=== PATIENT | female | born 1940 | race Caucasian/White ===

== ENCOUNTER → 2016-10-19 | Outpatient (CLI) | payer BC ==
[~2016-10-19] MED LIST: ASCA500 PO; ATV2 SL; CLBCR15; CLTP PO; FSMUNK; HYD10 PO; LEVO-366 PO; MULT-506 PO; SYN112 PO; TRAZ100T29 PO; [UNRECOGNIZED DRUG - OTHER]
[2016-10-19 10:39] LABS: HEMATOCRIT 45.3 % (37-47); MEAN CELL VOLUME 100.7 fL (80-100); MEAN CORPUSCULAR HEMOGLOBIN 32.7 pg (25-34); MEAN CORPUSCULAR HGB CONC 32.5 g/dl (32-36); MEAN PLATELET VOLUME 10.6 fL (7.4-10.4); PLATELET COUNT 253 K/uL (130-400); WHITE BLOOD COUNT 9.01 K/uL (4.8-10.8)
[2016-10-19 10:54] LABS: CALCIUM 8.7 mg/dl (8.5-10.1)
[2016-10-19 10:55] LABS: ALT/SGPT 21 U/L (12-78); BLOOD UREA NITROGEN 27 mg/dl (7-18); BUN/CREATININE RATIO 36.2 (10-20); CARBON DIOXIDE 31 mmol/L (21-32); CHLORIDE 107 mmol/L (98-107); CHOLESTEROL 147 mg/dl (0-200); CREATININE 0.74 mg/dl (0.60-1.20); GLUCOSE 97 mg/dl (70-99); POTASSIUM 3.6 mmol/L (3.5-5.1); SODIUM 144 mmol/L (136-145); TRIGLYCERIDES 158 mg/dl (0-150); VERY LOW DENSITY LIPOPROT CALC 32 mg/dl
[2016-10-19 11:03] LABS: ALB/GLOB RATIO 0.9 (0.9-2); ALKALINE PHOSPHATASE 44 U/L (45-117); AST/SGOT 18 U/L (15-37); HDL CHOLESTEROL 49 mg/dl; LDL CHOLESTEROL CALCULATED 66 mg/dl; THYROID STIMULATING HORMONE 0.948 uIu/ml (0.300-4.500)
== END | disposition home or self-care (01) ==
LOC: C.LAB1850 09:05
PROVIDERS: ATTEND Internal Medicine
DX: G62.9 Polyneuropathy, unspecified (principal); E03.9 Hypothyroidism, unspecified; E27.1 Primary adrenocortical insufficiency

== ENCOUNTER → 2016-10-29 | Outpatient (CLI) | payer BC ==
--- NOTE | 2016-11-01 13:12 | MAMMOGRAPHY REPORT ---
BILATERAL DIGITAL SCREENING MAMMOGRAM WITH CAD: 10/29/2016 CLINICAL HISTORY: Routine screening. TECHNIQUE: Current study was also evaluated with a Computer Aided Detection (CAD) system. Bilateral CC and MLO views were obtained. Note that the images are somewhat suboptimal due to difficulties wi th patient positioning as she is in a wheelchair and had to be held for all views. COMPARISON: Comparison is made to exams dated: 07/11/2015 mammogram, 06/28/2014 mammogram, 03/22/2012 m ammogram, 04/02/2010 mammogram - [facility], 03/04/2009, and 02/15/2008. BREAST COMPOSITION: The tissue of both breasts is heterogeneously dense, which may obscure small mas ses. FINDINGS: No suspicious masses, calcifications, or areas of architectural distortion are noted in ei ther breast. There has been no significant interval change compared to prior exams. Bilateral asymme tries are stable. IMPRESSION: ACR BI-RADS CATEGORY 2: BENIGN There is no mammographic evidence of malignancy. A 1 year screening mammogram is recommended. The pa tient will receive written notification of the results. Approximately 10% of breast cancers are not detected with mammography. A negative mammographic report should not delay biopsy if a clinically suggestive mass is present. Ramona Haley M.D. ah/:10/29/2016 16:05:06 Attending Technologist: Sia Kraft RT(R)(M), [facility] Profile Shaper Operator: Dorian Bautista RT(R)(M), [facility] letter sent: Normal 1/2 BI-RADS Code: ACR BI-RADS Category 2: Benign
== END | disposition home or self-care (01) ==
LOC: C.MAMM 14:52
PROVIDERS: ATTEND Internal Medicine
DX: Z12.31 Encounter for screening mammogram for malignant neoplasm of breast (principal)

== ENCOUNTER → 2017-04-21 | Outpatient (CLI) | payer BC ==
[2017-04-21 10:04] LABS: URINE APPEARANCE CLEAR (CLEAR); URINE BILIRUBIN NEG (NEG); URINE COLOR YELLOW; URINE NITRITE NEG (NEG); URINE SPECIFIC GRAVITY 1.011 (1.000-1.030); UROBILINOGEN NEG (NEG)
[2017-04-21 10:07] LABS: HEMATOCRIT 44.2 % (37-47); MANUAL MICROSCOPIC REQUIRED? NO; MEAN CELL VOLUME 98.4 fL (80-100); MEAN CORPUSCULAR HEMOGLOBIN 31.6 pg (25-34); MEAN CORPUSCULAR HGB CONC 32.1 g/dl (32-36); MEAN PLATELET VOLUME 10.2 fL (7.4-10.4); PLATELET COUNT 230 K/uL (130-400); RED BLOOD COUNT 4.49 M/uL (4.2-5.4); REVIEW REQ? NO; WHITE BLOOD COUNT 9.01 K/uL (4.8-10.8)
[2017-04-21 10:42] LABS: ALT/SGPT 22 U/L (12-78); AST/SGOT 22 U/L (15-37); BLOOD UREA NITROGEN 22 mg/dl (7-18); BUN/CREATININE RATIO 31.7 (10-20); CALCIUM 8.5 mg/dl (8.5-10.1); CARBON DIOXIDE 31 mmol/L (21-32); CHLORIDE 104 mmol/L (98-107); GLUCOSE 65 mg/dl (70-99); POTASSIUM 3.4 mmol/L (3.5-5.1); SODIUM 137 mmol/L (136-145)
[2017-04-21 10:53] LABS: ALKALINE PHOSPHATASE 47 U/L (45-117)
--- NOTE | 2017-04-26 06:57 | CODING QUERY MEDICAL NECESSITY ---
SUPPORTING DIAGNOSIS NEEDED Dr. Keyes, A supporting diagnosis is required for the test/procedure performed on this patient in order for us to be reimbursed by the patient's insurance. Please provide a supporting diagnosis for the following test/procedure listed below next to the test name along with your signature. *If there is no additional diagnosis for this patient that would support the following test/procedure please document that below next to the test/procedure. Test(s)/Procedure(s) that require a supporting diagnosis: * ([id number]) B12 VITAMIN LEVEL DIAGNOSIS: DATE OF SERVICE: 04/21/17 Provider Signature: Date: Thank you Ambrosio Young [facility] Information Management Once completed, please kindly fax back to [phone] For questions please call [phone]
== END | disposition home or self-care (01) ==
LOC: C.LAB1850 09:14
PROVIDERS: ATTEND Internal Medicine
DX: E27.1 Primary adrenocortical insufficiency (principal); G62.9 Polyneuropathy, unspecified; E03.9 Hypothyroidism, unspecified; R39.9 Unspecified symptoms and signs involving the genitourinary system

== ENCOUNTER → 2017-06-22 | Outpatient (CLI) | payer BC ==
--- NOTE | 2017-06-22 15:24 | MAMMOGRAPHY REPORT ---
UNILATERAL LEFT DIGITAL DIAGNOSTIC MAMMOGRAM TOMOSYNTHESIS WITH CAD AND TARGETED LEFT ULTRASOUND: 05/25 CLINICAL HISTORY: The patient reports a palpable left breast lump with some associated tenderness for approximately 2 weeks. She reports a family history of breast cancer in her sister. She is also on hormone replacement therapy. TECHNIQUE: Breast tomosynthesis in addition to standard 2D mammography was performed. Current study was also evaluated with a Computer Aided Detection (CAD) system. Left CC and MLO 2-D and tomosynthes is images were obtained. COMPARISON: Comparison is made to exams dated: 10/29/2016 mammogram, 07/11/2015 mammogram, 06/28/2014 zander mogram, 03/22/2012 mammogram, 04/22/2010 ultrasound, and 04/22/2010 mammogram - [facility] enter. BREAST COMPOSITION: The tissue of the left breast is heterogeneously dense, which may obscure small masses. FINDINGS: A triangle marker loya the site of the palpable lump in the left inferior anterior breast. There has been no significant interval change in the left breast compared to prior exams. There ar e no suspicious masses, calcifications, or areas of architectural distortion noted in the left breast . There is a nodular 8 mm asymmetry seen within the left inferior and slightly medial anterior breas t, which is stable on 2-D views compared to multiple prior exams including the 2008 exam. Other left breast asymmetries are stable. Targeted ultrasound was performed of the area of the palpable lump pointed out by the patient. She c ould not pinpoint one discrete focal lump but described denser areas in the left 5 to 6:00 breast. I n the left breast at 6:00 periareolar region (with the patient turned in a left lateral oblique posit ion), there is a hypoechoic circumscribed 4 x 5 x 4 mm mass. This likely corresponds with the mammog raphic asymmetry which is been stable dating back to at least 2008 and is therefore probably benign. The remainder of the left 5 to 6:00 breast demonstrates no suspicious masses or other suspicious son ographic abnormalities. IMPRESSION: ACR-BI-RADS CATEGORY 3: PROBABLY BENIGN, TARGETED ULTRASOUND ACR-BI-RADS CATEGORY 3: PRO BABLY BENIGN Hypoechoic 5 mm mass in the left 6:00 periareolar breast, in the general region of the palpable lump/ denser areas described by the patient. The mass likely corresponds with a mammographic asymmetry whi ch has been stable dating back to 2008, and is therefore probably benign. Recommend bilateral diagno stic tomosynthesis mammograms in 5-6 months, to reevaluate the left breast asymmetry/mass and for rou angel mammography of the right breast (mammograms of the right breast are due in October so the follow-up could be performed in 5-6 months, 30 minute time slot). Also recommend clinical follow-up; if the p alpable abnormality increases or for any other concerns, the patient should return sooner for imaging . The patient has been verbally notified of the results. Approximately 10% of breast cancers are not detected with mammography. A negative mammographic report should not delay biopsy if a clinically suggestive mass is present. Ramona Haley M.D. ah/:06/22/2017 10:09:11 Attending Technologist: Dorian Bautista RT(R)(M), [facility] Infantryman: Mirta Taylor RT(R)(M), [facility] letter sent: Follow Up Recommended 3 BI-RADS Code: ACR-BI-RADS Category 3: Probably Benign Ultrasound BI-RADS: ACR-BI-RADS Category 3: Pr obably Benign
== END | disposition home or self-care (01) ==
LOC: C.MAMM 08:52
PROVIDERS: ATTEND Obstetrics & Gynecology
DX: N63.20 Unspecified lump in the left breast, unspecified quadrant (principal)

== ENCOUNTER 2023-05-09 09:39 | Inpatient (IN) ==
[2023-05-09] MEDS ORDERED: fentaNYL citrate PF 100 MCG/2 ML VIAL IV STA (09:48)
--- NOTE | 2023-05-09 09:50 | Emergency Department Note ---
Impression & Plan Atrial fibrillation with rapid ventricular response, Acute UTI (urinary tract infection), Generalized weakness, Total body pain, Edema of both lower legs ED Provider Note Name: DEANNA MCCORMICK Age: 83 Sex: Female Arrives Via: Ambulance Informant: Patient, EMS, nursing staff ED Provider: Brady Kendall MD Chief Complaint: Weakness Impression: As per impressions above Medical Decision Makin-year-old female arrives for several days worsening weakness and total body pain. She is somewhat dehydrated by examination but does have significant pitting edema bilateral lower legs. She is in A-fib RVR which is new for her. She is not having any significant shortness of breath or chest pain and her oxygenation is decent so we will hold off on CT imaging of the chest at this point. She does have significant swelling in the legs but I suspect she is more dehydrated and this may more be dependent edema plus the new onset A-fib. Mild congestion on chest but not overt failure by chest x-ray. She was given a small bolus IV fluids with her sodium being mildly low. Straight cath UA obtained which does show findings consistent with UTI. Will hold off anticoagulation until further evaluation by hospitalist. She is not overtly septic and with no hypotension or lactic acidosis we will hold off on 30/kg fluid especially given she has possible overload issues as it is. Triage/Nursing Notes reviewed by Me Differential:Infection, dehydration, metabolic abnormality, hypo/hyperglycemia, electrolyte disturbance, anemia, hypoxia, cardiac sources, intracerebral event, toxicologic, neurologic, as well as other pathologies. Vital Signs: reviewed and remarkable for tachy Interventions: nss bolu 500ml IV, rocephin 2 gm iv, fentanyl 25mcg IV Labs:ED labs Reviewed by me and remarkable for mildly elevated CRP with mildly low sodium normal white count. Imagin view chest x-ray as per my interpretation there is bilateral mild congestive findings no overt infiltrate or effusion appreciated. EKG:As per my interpretation. Indication weakness. A-fib with RVR at 119 bpm QTc of 441. There is no overt ischemia. When compared to EKG of September 06, 2008 A-fib is new Cardiac/Tele Monitoring: Cardiac Monitoring: An Order was placed for continuous cardiac monitoring. The monitor shows a rate of 110 with a afib rvr rhythm. Consults:Dr Joellen PAN Hospitalist Plan: Disposition:Hospitalization. Condition: Fair History of Present Illness: 83-year-old female arrives for evaluation of illness. Patient states for the last several days she has been having worsening body aches and pain. She notes diffuse leg, foot, hand pain. States it is stabbing and electric in nature. Worse with any movement. Associated with increasing swelling of her legs as well as redness of both legs though worse on the left side. Patient does note that she is feeling increasingly shortness of breath over the last few days. It is associated with several episodes of vomiting. She has not been able to eat for several days she reports. She denies though any abdominal pain or back pain. States she is not currently nauseous. Has not had any change to urine or bowel symptoms. Patient states she is wheelchair-bound for the last 20 years. She is unsure of why she needs to use a wheel chair other than her legs are too weak. Per EMS patient house is concerning for inability to care for self. Patient reports using Tylenol this morning Past Medical History:See Below Home Medications:See Below Allergies:nkda Vitals:Blood Pressure: 119/74, Pulse 130, RR 22, T 36.7C, O2 96% on RA Physical Exam: GENERAL: Patient is unwell appearing and in moderate distress. RESPIRATORY: No dyspnea. Clear to auscultation and equal bilaterally. CARDIOVASCULAR: Tachycardic, questionably regular.No murmur appreciated. GASTROINTESTINAL: Abdomen soft, non-tender, no peritonitis. EXTREMITIES: 4+ pitting edema bilateral lower legs with erythema bilateral lower legs streaking up into the left medial thigh. Some mild erythema of the lower abdomen as well. NEUROLOGIC: Alert and oriented. No focal neurologic deficits appreciated. Hard of hearing SKIN: No rash, no jaundice, no diaphoresis. PSYCH: Tremulous shaky and crying. GCS: 15 ED Course: Times/Reassessments: Heart rate is improved after IV fluids and patient does note that she is feeling bit better after pain medications. She is agreeable to hospitalization. Brady Kendall MD Past Med/Surg History Medical History [place] disease Bronchitis History of edema History of vaginitis Surgical History H/O oophorectomy History of ovarian cystectomy S/P thyroid surgery Family History Sister Breast cancer Hearing loss Allergies Mother Thyroid cancer Brother Hearing loss Other No family history of adverse response to anesthesia No family history of bleeding disorder Denies family history of Colon cancer Ovarian cancer Myocardial infarction Social History Smoking Status: Smoker, status unknown Second Hand Exposure: No; Do You Dip or Chew Tobacco: No; Hx Alcohol Use: No Hx Substance Use: No Preferred Language: Moldovan marital status: Current Living Situation: Spouse current occupational status: retired Feels Safe at Home: Yes Physical Activity Frequency: Does not Exercise Seatbelt Use: always Allergies Allergies Allergy/AdvReac Type Severity Reaction Status Date / Time No Known Drug Allergies Allergy Verified 05/09/23 13:50 Home Meds Home Medications Medication Instructions Recorded Confirmed multivitamin 1 tab PO DAILY 11/01/18 05/09/23 polyethylene glycol 3350 17 8.5 gm PO DAILY PRN Constipation 11/01/18 05/09/23 gram/dose oral powder (Miralax) vit C 50 mg-E 15 unit-zinc cit 4.5 2 tab PO DAILY 11/01/18 05/09/23 mg-lutein 2.5 mg-zeaxan chew tablet (I-Stand) Previous Rx's Medication Instructions Recorded trazodone 100 mg tablet 150 mg (1.5 x 100 mg) PO DAILY 06/24/22 #135 tabs simvastatin 5 mg tablet 5 mg PO DAILY #90 tabs 08/24/22 hydrocortisone 10 mg tablet 10 mg PO Q6H PRN asthma #360 tabs 12/07/22 levothyroxine 112 mcg tablet 112 mcg PO DAILY #90 tabs 12/23/22 omeprazole 20 mg capsule,delayed 20 mg PO DAILY #90 caps 03/25/23 release Results & Data (ED) Vital Signs Vital Signs - 24 hr 05/09/23 09:49 05/09/23 10:06 05/09/23 10:06 Pulse Rate 128 H 108 H 103 H Pulse Rhythm Regular Respiratory Rate 20 20 Respiratory Depth Normal Blood Pressure 119/75 Blood Pressure Mean 89 Pulse Oximetry 96 96 Oxygen Delivery Method Room Air Room Air Sepsis Recent Fever Within 48 Hours No Sepsis New/Unexplained Change in Mental Status No Sepsis Action Taken by Nursing No Action Required 05/09/23 10:40 05/09/23 11:30 Pulse Rate 98 H 106 H Pulse Rhythm Respiratory Rate 13 18 Respiratory Depth Blood Pressure 119/75 119/75 Blood Pressure Mean 89 89 Pulse Oximetry 93 93 Oxygen Delivery Method Room Air Room Air Sepsis Recent Fever Within 48 Hours Sepsis New/Unexplained Change in Mental Status Sepsis Action Taken by Nursing Laboratory Data 05/09/23 09:56 05/09/23 09:56 Lab Results 05/09/23 05/09/23 05/09/23 Range/Units 09:56 10:14 10:27 WBC 5.32 (4.8-10.8) K/ul RBC 4.17 L (4.20-5.40) M/uL Hgb 13.8 (12.0-16.0) g/dl Hct 40.6 (37.0-47.0) % MCV 97.4 (80.0-100.0) fL MCH 33.1 (25.0-34.0) pg MCHC 34.0 (32.0-36.0) g/dL RDW Std Deviation 48.0 H (36.4-46.3) fL RDW Coeff of Alvarez 13.4 (11.5-14.5) % Plt Count 241 (130-400) K/uL MPV 10.0 (9.4-12.4) fL Immature Gran % (Auto) 0.2 % Neut % (Auto) 62.4 % Lymph % (Auto) 16.5 % [place] % (Auto) 11.7 % Eos % (Auto) 8.6 % Baso % (Auto) 0.6 % Neut # (Auto) 3.32 (1.40-6.50) K/uL Lymph # (Auto) 0.88 L (1.20-3.40) K/uL [place] # (Auto) 0.62 H (0.11-0.59) K/uL Eos # (Auto) 0.46 (0.00-0.50) K/uL Baso # (Auto) 0.03 (0.00-0.20) K/uL Immature Gran # (Auto) 0.01 (0.01-0.20) K/uL ESR 28 (0-30) mm/hr PT 12.4 H (9.0-12.0) Seconds INR 1.1 (0.9-1.1) APTT 27 (21-31) Seconds PTT Ratio 1.0 Sodium 128 L (136-145) mmol/L Potassium 4.2 (3.5-5.1) mmol/L Chloride 98 (98-107) mmol/L Carbon Dioxide 25 (21-32) mmol/L Anion Gap 5 (3-11) BUN 21 (6-23) mg/dl Creatinine 0.42 L (0.6-1.2) mg/dl Est Cr Clr Drug Dosing 88.1 ml/min Est GFR ( Amer) 110.6 ml/min Est GFR (Non-Af Amer) 95.5 ml/min BUN/Creatinine Ratio 50.0 H (10-20) Glucose 85 (70-99(Fasting)) mg/dl Lactate 1.1 (0.4-2.0) mmol/L Calcium 8.5 L (8.6-10.3) mg/dl Magnesium 1.7 (1.7-2.4) mg/dl Total Bilirubin 0.7 (0.2-1.0) mg/dl Direct Bilirubin 0.1 (0-0.2) mg/dl AST 18 (13-39) U/L ALT 10 (7-52) U/L Alkaline Phosphatase 53 (34-104) U/L Total Creatine Kinase 61 (26-192) U/L Troponin I High Sens 10.6 (0-14) pg/ml C-Reactive Protein 2.10 H (0-0.5) mg/dl B-Natriuretic Peptide 252 H (0-100) pg/ml Total Protein 5.5 L (6.0-8.3) gm/dl Albumin 3.2 L (3.4-5.0) gm/dl Procalcitonin < 0.05 (0-0.5) ng/ml TSH 9.407 H (0.300-4.500) uIu/ml Free T4 0.93 (0.61-1.60) ng/dl Random Cortisol 4.53 mcg/dl Urine Color Yellow Urine Appearance Cloudy A (Clear) Urine pH 7.0 (4.5-7.5) Ur Specific [place] 1.018 (1.000-1.030) Urine Protein Negative (Negative) Urine Glucose (UA) Negative (Negative) Urine Ketones Negative (Negative) Urine Blood Trace H (Negative) Urine Nitrite Negative (Negative) Urine Bilirubin Negative (Negative) Urine Urobilinogen Negative (Negative) Ur Leukocyte Esterase 3+ H (Negative) Urine WBC (Auto) >30 H (0-5) /hpf Urine RBC (Auto) 5-10 H (0-4) /hpf U Hyaline Cast (Auto) 0 (0-5) /lpf U Epithel Cells (Auto) 0-5 (0-5) /lpf Urine Bacteria (Auto) 3+ H (Negative) Urine Osmolality 513 (500-800) mOsm/kg Ur Random Sodium 27 mmol/L SARS-CoV-2 (PCR) NEGATIVE (Negative) Influenza Type A (PCR) Negative (Neg) Influenza Type B (PCR) Negative (Neg) RSV (RT-PCR) Negative (Neg) Administered Medications Heparin Sodium/Dextrose (Heparin Sodium/Dextrose) 25,000 units in 500 mls @ 13 mls/hr IV .Q24H [facility]; Protocol Stop: 06/08/23 13:14 Last Admin: 05/09/23 14:03 Dose: 650 units/hr, 13 mls/hr Documented By: DOMO Co-signed By: TELMA Metoprolol Tartrate (Metoprolol Tartrate 25 Mg Tab) 25 mg PO BID [facility] Stop: 06/08/23 12:59 Last Admin: 05/09/23 14:03 Dose: 25 mg Documented By: DOMO Sodium Chloride (Sodium Chloride 0.65% Na Soln 45 Ml ([place])) 2 sprays NA BID NATASHA Stop: 06/08/23 12:59 Last Admin: 05/09/23 14:03 Dose: 2 sprays Documented By: DOMO Discontinued Medications Fentanyl Citrate (Fentanyl Citrate Pf 100 Mcg/2 Ml Vial) 25 mcg IV NOW STA Stop: 05/09/23 09:49 Last Admin: 05/09/23 10:18 Dose: 25 mcg Documented By: TUCKER Heparin Sodium/Dextrose (Heparin Iv Adult Wt-Based Low-Dose *No* Initial Bolus Protocol) 1 each IV ONE STA; Protocol Stop: 05/09/23 12:47 Last Admin: 05/09/23 14:10 Dose: Not Given Documented By: DOMO Ceftriaxone Sodium (Rocephin) 2,000 mg in 50 mls @ 100 mls/hr IV NOW STA Stop: 05/09/23 11:23 Last Infusion: 05/09/23 11:51 Dose: Infused Documented By: Admin: 05/09/23 11:19 Dose: 100 mls/hr Documented By: TUCKER Sodium Chloride (Nss) 500 mls @ 999 mls/hr IV .Q31M ONE Stop: 05/09/23 11:26 Last Infusion: 05/09/23 11:51 Dose: Infused Documented By: Admin: 05/09/23 11:19 Dose: 999 mls/hr Documented By: TUCKER Magnesium Sulfate/Dextrose (Magnesium Sulfate / D5w) 1 gm in 100 mls @ 100 mls/hr IV NOW STA Stop: 05/09/23 12:42 Last Infusion: 05/09/23 14:03 Dose: Infused Documented By: Admin: 05/09/23 12:28 Dose: 100 mls/hr Documented By: TUCKER Imaging Data Radiologist's Impression: Chest X-Ray 05/09/23 09:48 XR chest 1V portable HISTORY: Sepsis COMPARISON: Chest 09/06/2008. FINDINGS: No pneumothorax. No pleural effusions. The heart remains mildly enlarged. Mild central pulmonary vascular congestion without overt edema. Left basilar linear densities favor subsegmental atelectasis or scarring. This is similar to the prior study. No acute fractures identified. IMPRESSION: Cardiomegaly and mild congestive change. ACT 112: Negative or not required by law. Electronically signed by: Lupillo Clarke M.D. 05/09/2023 11:07 AM Discharge Plan Visit Data Chief Complaint: Pain (Generalized) Stated Complaint: PAIN IN HANDS, ARMS & LEGS ED Provider: Brady Kendall Discharge Problem: Atrial fibrillation with rapid ventricular response, Acute UTI (urinary tract infection), Generalized weakness, Total body pain, Edema of both lower legs Patient Disposition: Admitted As Inpatient Discharge Instructions Interventions: ED Discharge Assessment Last Done: 05/09/23 12:38
[2023-05-09 10:15] LABS: Basophils # (auto) 0.03 K/uL (0.00-0.20); Basophils % (auto) 0.6 %; Eosinophils # (auto) 0.46 K/uL (0.00-0.50); Eosinophils % (auto) 8.6 %; Hematocrit (blood only) 40.6 % (37.0-47.0); Hemoglobin 13.8 g/dl (12.0-16.0); Immature Granulocytes # (auto) 0.01 K/uL (0.01-0.20); Immature Granulocytes % (auto) 0.2 %; Lymphocytes # (auto) 0.88 K/uL (1.20-3.40); Lymphocytes % (auto) 16.5 %; Mean Corpuscular Hemoglobin 33.1 pg (25.0-34.0); Mean Corpuscular Volume 97.4 fL (80.0-100.0); Monocytes # (auto) 0.62 K/uL (0.11-0.59); Monocytes % (auto) 11.7 %; Neutrophils # (auto) 3.32 K/uL (1.40-6.50); Neutrophils % (auto) 62.4 %; Platelet Count 241 K/uL (130-400); RDW Coefficient of Variation 13.4 % (11.5-14.5); Red Blood Count 4.17 M/uL (4.20-5.40); White Blood Count 5.32 K/ul (4.8-10.8)
[2023-05-09 10:44] LABS: Appearance Urine Cloudy (Clear); Bacteria Urine Automated 3+ (Negative); Bilirubin Urine Negative (Negative); Blood Urine Trace (Negative); Cast Urine Automated 0 /lpf (0-5); Color Urine Yellow; Epithelial Cell Urine Auto 0-5 /lpf (0-5); Glucose Urine UA Negative (Negative); Ketones Urine Negative (Negative); Leukocyte Esterase Urine 3+ (Negative); Nitrite Urine Negative (Negative); Protein Urine Negative (Negative); Specific Gravity Urine 1.018 (1.000-1.030); Urobilinogen Urine Negative (Negative); WBC Urine Automated >30 /hpf (0-5)
[2023-05-09 10:54] LABS: Albumin Level 3.2 gm/dl (3.4-5.0); Bilirubin Direct 0.1 mg/dl (0-0.2); Bilirubin,Total 0.7 mg/dl (0.2-1.0); Calcium 8.5 mg/dl (8.6-10.3); Creatinine Clr Calc Pharmacy 88.1 ml/min; Est GFR (African American) 110.6 ml/min; Est GFR (Non-African American) 95.5 ml/min; Magnesium 1.7 mg/dl (1.7-2.4); Potassium 4.2 mmol/L (3.5-5.1); Total Protein 5.5 gm/dl (6.0-8.3)
[2023-05-09] MEDS ORDERED: cefTRIAXone SODIUM 2,000 MG/50 ML BAG IV STA (10:54)
[2023-05-09] MEDS ORDERED: SODIUM CHLORIDE 0.9% 500 ML IV ONE (10:56)
--- NOTE | 2023-05-09 11:08 | XRay Report ---
XR chest 1V portable HISTORY: Sepsis COMPARISON: Chest 09/06/2008. FINDINGS: No pneumothorax. No pleural effusions. The heart remains mildly enlarged. Mild central pulm onary vascular congestion without overt edema. Left basilar linear densities favor subsegmental atele ctasis or scarring. This is similar to the prior study. No acute fractures identified. IMPRESSION: Cardiomegaly and mild congestive change. ACT 112: Negative or not required by law. Electronically signed by: Lupillo Clarke M.D. 05/09/2023 11:07 AM
[2023-05-09 11:19] LABS: Influenza A virus by PCR Negative (Neg); Influenza B virus by PCR Negative (Neg); RSV by PCR Negative (Neg); SARS CoV2 RNA(COVID-19) Ceph NEGATIVE (Negative)
--- NOTE | 2023-05-09 11:29 | History & Physical Report ---
Date of Service May 09, 2023 Assessment & Plan (1) Bilateral leg pain: Plan: Appears to be related to leg swelling. No specific joint pain and she is wheelchair bound without trauma therefore no XRs taken. ?worsening swelling due to a. fib RVR ?DVT, b/l venous dopplers ordered ?venous stasis and poor nutrition Will trial lasix 20mg IV to assess urine output (2) Atrial fibrillation with RVR: Plan: New onset although suspect she has had this for sometime as palpitations noted in outpatient notes (previously used lorazepam for this) [id number] - 4, recommend anticoagulation, will initially give heparin IV drip low dose without bolus Start rate control with metoprolol tartrate 25mg PO BID (3) Urinary tract infection: Plan: New urinary incontinence and increased frequency Ceftriaxone 2g IV daily Follow up blood and urine cultures (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 Does not appear to need stress dose steroids currently but will keep on this high dose of hydrocortisone to avoid hypotension with acute illness. Consider reduction on discharge with discussion with endocrinology - patient unlikely to follow up with endocrinology on discharge (5) Polyneuropathy: Plan: Per PCP notes - no real workup for this. Would recommend outpatient EMG/NCS although doubtful she will be amenable to this. (6) Chronic prescription benzodiazepine use: Plan: PDMP reviewed at that she has been weaned off lorazepam over January and February this year she picks up her last dose of 4 pills lorazepam 0.5 mg on March 10, 2023 She confirms she is no longer taking lorazepam (7) Hypothyroidism: Plan: TSH 3.38 in December 2021, will repeat Continue levothyroxine 112 mcg p.o. daily (8) GERD without esophagitis: Plan: Switch omeprazole to pantoprazole per hospital formulary (9) Anxiety: Plan: Continue trazodone 150 mg HS Plan VTE prophylaxis - IV heparin Diet - Low Na Disposition - admit to med/tele Admission and Anticipated Discharge Date Admission Date: May 09, 2023 History of Present Illness Chief Complaint: Bilateral leg pain, failure to thrive Primary Care Provider: Alejandro Keyes MD Esteban Grace is a 83-year-old female who presents to the ER with generalized pain and fatigue but mainly bilateral pain in legs for the last 4 days. She is wheelchair-bound for the last 20 years although for unclear reasons why and per primary care notes has refused specialist workup for this. She reports most of her symptoms are chronic but worse in the last 4 days including bilateral leg pain, decreased sleep and increased fatigue. Reports the last week or two having pain in her chest but none currently. She does not exert herself. No worse on inspiration. Urinary incontinence for "some time" - possible worse the last month or two and more frequent over the last 4 days. Possibly more short of breath over the last 4 days. No fever, chills, change in bowels, abdominal pain, orthopnea, PND, palpitations, presyncope or syncope. Review of PCP notes - patient has not followed up in person in multiple years. Notably weaned off lorazepam in February without the patient coming to the doctor. On discussion with her they have spent the last 60 years together every day and this is the first day they have been apart. He is unable to visit as he has his own medical problems and has not left the house in a year. He is mainly concerned about her getting pain medication for her leg pain. Allergies Allergy/AdvReac Type Severity Reaction Status Date / Time No Known Drug Allergies Allergy Verified 05/09/23 13:50 Home Medications Medication Instructions Recorded Confirmed Type multivitamin 1 tab PO DAILY 11/01/18 05/09/23 History polyethylene glycol 3350 17 8.5 gm PO DAILY PRN Constipation 11/01/18 05/09/23 History gram/dose oral powder (Miralax) vit C 50 mg-E 15 unit-zinc cit 4.5 2 tab PO DAILY 11/01/18 05/09/23 History mg-lutein 2.5 mg-zeaxan chew tablet ([facility]) trazodone 100 mg tablet 150 mg (1.5 x 100 mg) PO DAILY 06/24/22 05/09/23 Rx #135 tabs simvastatin 5 mg tablet 5 mg PO DAILY #90 tabs 08/24/22 05/09/23 Rx hydrocortisone 10 mg tablet 10 mg PO Q6H PRN asthma #360 tabs 12/07/22 05/09/23 Rx levothyroxine 112 mcg tablet 112 mcg PO DAILY #90 tabs 12/23/22 05/09/23 Rx omeprazole 20 mg capsule,delayed 20 mg PO DAILY #90 caps 03/25/23 05/09/23 Rx release Past Med/Surg History Medical History Mclean disease Bronchitis History of edema History of vaginitis Surgical History H/O oophorectomy History of ovarian cystectomy S/P thyroid surgery Family History Sister Breast cancer Hearing loss Allergies Mother Thyroid cancer Brother Hearing loss Other No family history of adverse response to anesthesia No family history of bleeding disorder Denies family history of Colon cancer Ovarian cancer Myocardial infarction Social History Smoking Status: Never smoker Second Hand Exposure: No; Do You Dip or Chew Tobacco: No; Hx Alcohol Use: No Hx Substance Use: No Preferred Language: Yoruba Mountain Guide Required: No Beliefs That Will Affect Care: None marital status: Current Living Situation: Spouse current occupational status: retired Feels Safe at Home: Yes Safety Concerns: Feels Safe At This Time Physical Activity Frequency: Does not Exercise Seatbelt Use: always Assistive Devices: Wheelchair Review of Systems Review of Systems: All systems reviewed & are unremarkable except as noted in HPI & below Physical Exam Constitutional: well developed; + not well nourished and no acute distress Eyes: PERRL, conjunctivae normal, anicteric sclerae ENMT: external ear and nose normal, oropharynx normal Respiratory: normal respiratory effort; no respiratory distress Auscultation: + diminished lung sounds (bibasal); no crackles, no rales, no rhonchi and no wheezes Cardiovascular: Rate/Rhythm: + tachycardic and + irregularly irregular Heart Sounds: no murmur Gastrointestinal (Abdomen): normal bowel sounds, soft, nontender, no hepatosplenomegaly Skin: few scabs on b/l lower extremities with erythematous venous stasis changes but no definitive cellulitic changes Neurologic: moves all extremities (2/5 b/l lower extremity hip/knee flex, 4/5 ankle dorsi/plantarflex) and awake; no focal motor deficits (no lateralizing weakness) and not confused Speech / Cognition: normal speech Motor/Sensory: no tremor and no pronator drift Cranial Nerves: PERRL, EOM intact bilaterally, normal facial strength, tongue midline, able to elevate shoulders bilaterally, no nystagmus and symmetric palate elevation Psychiatric: A+Ox3, euthymic affect Genitourinary: no CVA tenderness Results & Data Results & Data Vital Signs (Past 12 Hours) Vital Signs Pulse Resp BP Pulse Ox O2 Del Method 05/09/23 10:40 98 H 13 119/75 93 Room Air 05/09/23 10:06 103 H 20 96 Room Air 05/09/23 10:06 108 H 20 119/75 96 Room Air 05/09/23 09:49 128 H Laboratory Results Abnormal lab results 05/09/23 05/09/23 Range/Units 09:56 10:27 RBC 4.17 L (4.20-5.40) M/uL RDW Std Deviation 48.0 H (36.4-46.3) fL Lymph # (Auto) 0.88 L (1.20-3.40) K/uL [place] # (Auto) 0.62 H (0.11-0.59) K/uL Sodium 128 L (136-145) mmol/L Creatinine 0.42 L (0.6-1.2) mg/dl BUN/Creatinine Ratio 50.0 H (10-20) Calcium 8.5 L (8.6-10.3) mg/dl B-Natriuretic Peptide 252 H (0-100) pg/ml Total Protein 5.5 L (6.0-8.3) gm/dl Albumin 3.2 L (3.4-5.0) gm/dl Urine Appearance Cloudy A (Clear) Urine Blood Trace H (Negative) Ur Leukocyte Esterase 3+ H (Negative) Urine WBC (Auto) >30 H (0-5) /hpf Urine RBC (Auto) 5-10 H (0-4) /hpf Urine Bacteria (Auto) 3+ H (Negative) Diagnostic Findings XR chest 1V portable HISTORY: Sepsis COMPARISON: Chest 09/06/2008. FINDINGS: No pneumothorax. No pleural effusions. The heart remains mildly enlarged. Mild central pulmonary vascular congestion without overt edema. Left basilar linear densities favor subsegmental atelectasis or scarring. This is si milar to the prior study. No acute fractures identified. IMPRESSION: Cardiomegaly and mild congestive change. Medications Administered ER medications given: Normal saline 500 mL bolus Fentanyl 25 mcg IV Ceftriaxone 2000 mg IV ECG Rate (beats per minute): 119 Rhythm: atrial fibrillation Findings: + nonspecific-ST abn; no acute ischemic change Comparison ECG Date: from (September 06, 2008) Change: the following changes noted (Nonspecific T wave abnormality evident in anterior leads) Code Status & VTE Plan Code Status Full VTE Prophylaxis Plan VTE Prophylaxis will be ordered: Yes PG Care Time/CCT Total # of Minutes Spent Total Time Spent with Patient: Total time spent is greater than 50% in coordination of care (as documented) at patient's floor/unit and/or counseling patient: Coding Level of Care Code 91029 INT INP/OBS CARE 3/75MIN Diagnoses Bilateral leg pain M79.604; M79.605 Atrial fibrillation with RVR I48.91 Acute cystitis with hematuria N30.01 Urinary tract infection type: acute cystitis Hematuria presence: with hematuria 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
[2023-05-09] MEDS ORDERED: MAGNESIUM SULFATE / D5W 1 GM/100 ML BAG IV STA (11:43)
[2023-05-09] MEDS ORDERED: Heparin IV Adult Wt-Based Low-Dose *NO* INITIAL Bolus Protocol IV STA (12:46)
[2023-05-09 13:06] LABS: INR 1.1 (0.9-1.1); Partial Thromboplastin Time 27 Seconds (21-31); Prothrombin Time 12.4 Seconds (9.0-12.0)
[2023-05-09 13:07] LABS: C Reactive Protein 2.1 mg/dl (0-0.5)
[2023-05-09] MEDS ORDERED: HEPARIN SODIUM/DEXTROSE 25,000 UNITS/500 ML BAG IV SCH (13:15)
[2023-05-09 13:21] LABS: Thyroid Stimulating Hormone 9.407 uIu/ml (0.300-4.500)
[2023-05-09 13:59] LABS: T4 Free Thyroxine 0.93 ng/dl (0.61-1.60)
[2023-05-09] MEDS: METOPROLOL TARTRATE 25 MG TAB PO SCH ×2 (14:03→20:59)
[2023-05-09] MEDS: SODIUM CHLORIDE 0.65% NA SOLN 45 ML (OCEAN) SCH ×2 (14:03→20:59)
[2023-05-09] MEDS ORDERED: HYDROCORTISONE 10 MG TAB PO STA (14:40)
[2023-05-09] MEDS: HYDROCORTISONE 10 MG TAB PO SCH ×2 (16:22→20:58)
[2023-05-09] MEDS ORDERED: ACETAMINOPHEN 325 MG TAB PO PRN (17:03)
[2023-05-09] MEDS ORDERED: FUROSEMIDE INJ 20 MG/2 ML VIAL IV ONE (17:03)
--- NOTE | 2023-05-09 19:37 | XCELERA ---
[id number]
[2023-05-09 20:46] LABS: BUN Creatinine Ratio 38.6 (10-20); Calcium 8.1 mg/dl (8.6-10.3); Creatinine Clr Calc Pharmacy 84.1 ml/min; Potassium 4.1 mmol/L (3.5-5.1)
[2023-05-09 20:54] LABS: ANTI-Xa, UFH(UnfractionatedHep < 0.10 IU/ml (0.3-0.7)
[2023-05-09] MEDS: traZODone HCL 50 MG TAB PO SCH (20:59)
[2023-05-09] MEDS ORDERED: HEPARIN SOD (PORCINE) 1000 UNIT/ML IV ONE (21:30)
--- NOTE | 2023-05-10 02:32 | Ultrasound Report ---
Exam(s): US VENOUS BILATERAL LOWER EXTREMITIES EXAM: US Duplex Bilateral Lower Extremities Veins CLINICAL HISTORY: Reason for exam: b/l leg swelling and pain. TECHNIQUE: Real-time duplex ultrasound scan of the bilateral lower extremity veins integrating B-mode two-dimensional vascular structure, Doppler spectral analysis, color flow Doppler imaging and compression. COMPARISON: None. FINDINGS: Right deep veins: Unremarkable. No DVT in the right common femoral, femoral, proximal deep femoral or popliteal veins. The veins demonstrate normal color flow, are normally compressible, with normal phasic flow and/or augmentation response. Suboptimally seen right peroneal veins. Right superficial veins: Unremarkable. No thrombus in the visualized right great saphenous vein. Left deep veins: Unremarkable. No DVT in the left common femoral, femoral, proximal deep femoral or popliteal veins. The veins demonstrate normal color flow, are normally compressible, with normal phasic flow and/or augmentation response. Suboptimally seen in the left peroneal veins. Left superficial veins: Unremarkable. No thrombus in the visualized left great saphenous vein. Soft tissues: No acute findings. No popliteal cyst. IMPRESSION: No ultrasonographic evidence of deep venous thrombosis involving the bilateral lower extremities. Electronically signed by: Didi Reyes MD 05/10/23 02:31 AM
[2023-05-10 03:52] LABS: Basophils # (auto) 0.04 K/uL (0.00-0.20); Basophils % (auto) 0.6 %; Eosinophils # (auto) 0.06 K/uL (0.00-0.50); Hematocrit (blood only) 39.9 % (37.0-47.0); Hemoglobin 13.5 g/dl (12.0-16.0); Immature Granulocytes # (auto) 0.02 K/uL (0.01-0.20); Immature Granulocytes % (auto) 0.3 %; Lymphocytes # (auto) 0.91 K/uL (1.20-3.40); Lymphocytes % (auto) 14.7 %; Mean Corpuscular Hemoglobin 32.7 pg (25.0-34.0); Mean Corpuscular Hgb Conc 33.8 g/dL (32.0-36.0); Mean Corpuscular Volume 96.6 fL (80.0-100.0); Mean Platelet Volume 10.1 fL (9.4-12.4); Monocytes # (auto) 0.57 K/uL (0.11-0.59); Monocytes % (auto) 9.2 %; Neutrophils % (auto) 74.2 %; Platelet Count 260 K/uL (130-400); RDW Coefficient of Variation 13.4 % (11.5-14.5); Red Blood Count 4.13 M/uL (4.20-5.40)
[2023-05-10 04:02] LABS: Albumin Globulin Ratio 1.3 (0.9-2); BUN Creatinine Ratio 30.8 (10-20); Bilirubin,Total 0.5 mg/dl (0.2-1.0); Calcium 8.1 mg/dl (8.6-10.3); Creatinine Clr Calc Pharmacy 71.1 ml/min; Est GFR (African American) 103.1 ml/min; Globulin 2.3 gm/dl (2.5-4.0); Magnesium 1.9 mg/dl (1.7-2.4); Potassium 4.1 mmol/L (3.5-5.1); Total Protein 5.3 gm/dl (6.0-8.3)
[2023-05-10 04:19] LABS: ANTI-Xa, UFH(UnfractionatedHep 0.45 IU/ml (0.3-0.7)
[2023-05-10] MEDS ORDERED: LEVOTHYROXINE SODIUM 112 MCG TABLET PO SCH (06:30)
[2023-05-10] MEDS: HYDROCORTISONE 10 MG TAB PO SCH ×4 (08:47→21:16)
[2023-05-10] MEDS: SODIUM CHLORIDE 0.65% NA SOLN 45 ML (OCEAN) SCH ×2 (08:48→21:15)
[2023-05-10] MEDS: PANTOprazole 40 MG TAB PO SCH (08:48)
[2023-05-10] MEDS: METOPROLOL TARTRATE 25 MG TAB PO SCH (08:48)
[2023-05-10] MEDS ORDERED: FUROSEMIDE INJ 20 MG/2 ML VIAL IV SCH (09:00)
[2023-05-10] MEDS: APIXABAN 5 MG TABLET PO SCH ×2 (10:51→21:16)
[2023-05-10] MEDS: cefTRIAXone SODIUM 1,000 MG in DEXTROSE 5 % MINI-B 50 ML IV SCH (10:51)
[2023-05-10] MEDS: FUROSEMIDE INJ 20 MG/2 ML VIAL IV SCH (17:50)
--- NOTE | 2023-05-10 19:19 | Hospitalist Progress Note ---
Date of Service May 10, 2023 Assessment & Plan (1) (HFpEF) heart failure with preserved ejection fraction: Plan: Presents with worsening peripheral edema and leg pain with rapid atrial fibrillation With elevated BNP, hyponatremia from volume overload, and chest x-ray with cardiomegaly and mild congestive change Echocardiogram with EF 55-60%, no WMA's, mild LVH, moderate TR, small pericardial effusion without tamponade, mild MR Likely acute on chronic HFpEF secondary to rapid A-fib ongoing for likely months -Increase metoprolol to 50 Mg p.o. twice daily for rate control -Blood pressure is already controlled -Continue diuresis but increase Lasix to 20 Mg IV twice daily and replace potassium as needed -Follow daily weights and I's and O's, low-sodium diet -Plan to repeat echo within 1 month to reassess pericardial effusion -TSH is elevated at 9.4-adjust LT4 as below (2) Bilateral leg pain: Plan: Appears to be related to leg swelling. No specific joint pain and she is wheelchair bound without trauma therefore no XRs taken. venous dopplers negative for DVT Could also have venous stasis and poor nutrition contributing Continue diuresis as above (3) Atrial fibrillation with RVR: Plan: New onset although suspect she has had this for sometime as palpitations noted in outpatient notes (previously used lorazepam for this) [id number] - 4, recommend anticoagulation, was initially started on heparin IV drip but will convert to Eliquis 5 Mg p.o. twice daily Needs improved rate control-started metoprolol tartrate 25mg PO BID but will now increase to 50 Mg p.o. 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 Does not appear to need stress dose steroids currently but will keep on this high dose of hydrocortisone to avoid hypotension with acute illness. Consider reduction on discharge with discussion with endocrinology - patient unlikely to follow up with endocrinology on discharge She has been taking this consistently for years (8) Polyneuropathy: Plan: Per PCP notes - no real workup for this. Would recommend outpatient EMG/NCS although doubtful she will be amenable to this. B12 level in 2020 is normal (9) Chronic prescription benzodiazepine use: Plan: PDMP reviewed at that she has been weaned off lorazepam over January and February this year she picks up her last dose of 4 pills lorazepam 0.5 mg on March 10, 2023 She confirms she is no longer taking lorazepam (10) Hypothyroidism: Plan: TSH 3.38 in December 2021, now elevated at 9 Increase levothyroxine to 125 mcg p.o. daily Follow TSH in 4 to 6 weeks (11) GERD without esophagitis: Plan: Continue PPI (12) Anxiety: Plan: Continue trazodone 150 mg HS Now weaned off lorazepam Plan VTE prophylaxis -Eliquis Diet - Low Na Disposition -continued stay on med/tele, but likely discharge to home tomorrow with home health as requested by the patient. She is anxious to return home with her . PT/OT evals placed and recommend return home with assistance from Admission and Anticipated Discharge Date Admission Date: May 09, 2023 Anticipated date of discharge: 05/11/23 Subjective Patient reports pain in the legs still if they are to change. She is not sure if the swelling has gone down. She denies chest pains or shortness of breath. Denies abdominal pains nausea or dysuria. Telemetry with atrial fibrillation with rates in the 1 teens to 150s persistently Physical Exam Constitutional: WD/WN, vitals as above Respiratory: normal respiratory effort; no cough Auscultation: lungs clear to auscultation bilaterally Cardiovascular: Rate/Rhythm: + tachycardic and + irregularly irregular Heart Sounds: no murmur Extremities: + edema (2+ pitting edema lower extremities to the knees bilaterally) Gastrointestinal (Abdomen): normal bowel sounds, soft, nontender, no hepatosplenomegaly Psychiatric: Orientation: alert and oriented x 3 Results & Data Results & Data Vital Signs (Past 12 Hours) Vital Signs Temp Pulse Pulse Resp BP Pulse Ox O2 Del Method 05/10/23 15:13 139 H 05/10/23 15:13 36.7 C 110 H 20 110/65 91 Room Air 05/10/23 11:33 36.8 C 106 H 20 100/64 92 Room Air 05/10/23 07:47 36.8 C 118 H 20 133/84 91 Room Air Laboratory Results CBC, BMP, magnesium level, blood cultures reviewed Urine culture gram-negative bacilli Diagnostic Findings echo reviewed PG Care Time/CCT Total # of Minutes Spent Total Time Spent with Patient: Total time spent is greater than 50% in coordination of care (as documented) at patient's floor/unit and/or counseling patient: Coding Level of Care Code 02133 SUB INP/OBS CARE 3/50MIN Diagnoses (HFpEF) heart failure with preserved ejection fraction I50.30 Bilateral leg pain M79.604; M79.605 Atrial fibrillation with RVR I48.91 Pericardial effusion I31.39 Hyponatremia E87.1 Acute cystitis with hematuria N30.01 Urinary tract infection type: acute cystitis Hematuria presence: with hematuria 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
[2023-05-10] MEDS: traZODone HCL 50 MG TAB PO SCH (21:15)
[2023-05-10] MEDS: METOPROLOL TARTRATE 50 MG TAB PO SCH (21:15)
--- NOTE | 2023-05-10 23:11 | Electrocardiogram Report ---
Test Reason : Blood Pressure : / mmHG Vent. Rate : 119 BPM Atrial Rate : 000 BPM P-R Int : 000 ms QRS Dur : 074 ms QT Int : 314 ms P-R-T Axes : 000 065 -06 degrees QTc Int : 441 ms Atrial fibrillation with rapid ventricular response Cannot rule out Anterior infarct , age undetermined Nonspecific T wave abnormality Abnormal ECG When compared with ECG of 06-SEP-2008 13:10, Atrial fibrillation has replaced Sinus rhythm Nonspecific T wave abnormality now evident in Anterior leads Premature ventricular complexes are no longer Present Confirmed by Juan Jose Ambrose ([id number]) on 05/10/2023 11:10:49 PM Referred By: Confirmed By:Juan Jose Ambrose
[2023-05-11 05:17] LABS: Calcium 8.2 mg/dl (8.6-10.3); Creatinine Clr Calc Pharmacy 72.7 ml/min; Est GFR (African American) 104.5 ml/min; Est GFR (Non-African American) 90.1 ml/min; Magnesium 1.9 mg/dl (1.7-2.4); Potassium 3.9 mmol/L (3.5-5.1)
[2023-05-11 05:33] LABS: ANTI-Xa, UFH(UnfractionatedHep 1.13 IU/ml (0.3-0.7)
[2023-05-11] MEDS ORDERED: LEVOTHYROXINE SODIUM 125 MCG TABLET PO SCH (06:30)
[2023-05-11] MEDS: METOPROLOL TARTRATE 50 MG TAB PO SCH ×2 (08:37→15:52)
[2023-05-11] MEDS: APIXABAN 5 MG TABLET PO SCH (08:37)
[2023-05-11] MEDS: FUROSEMIDE INJ 20 MG/2 ML VIAL IV SCH (08:37)
[2023-05-11] MEDS: PANTOprazole 40 MG TAB PO SCH (08:37)
[2023-05-11] MEDS: HYDROCORTISONE 10 MG TAB PO SCH ×3 (08:37→15:52)
[2023-05-11] MEDS: SODIUM CHLORIDE 0.65% NA SOLN 45 ML (OCEAN) SCH (08:38)
[2023-05-11] MEDS: cefTRIAXone SODIUM 1,000 MG in DEXTROSE 5 % MINI-B 50 ML IV SCH (10:52)
--- NOTE | 2023-05-11 16:05 | Discharge Summary ---
Discharge Summary Date of Service May 11, 2023 Notes For Next Care Provider Needs f/u ECHO in 1 month for small pericardial effusion Needs TSH in 1-2 months Needs BMP in 1-2 weeks Medication Changes From Visit Added lasix 20mg po daily Added metoprolol 50mg po bid Added Eliquis 5mg po bid Added Keflex 500mg po bid x 7 days Increased levothyroxine to 125mcg po daily Admission HPI Per Admitting Provider Esteban Grace is a 83-year-old female who presents to the ER with generalized pain and fatigue but mainly bilateral pain in legs for the last 4 days. She is wheelchair-bound for the last 20 years although for unclear reasons why and per primary care notes has refused specialist workup for this. She reports most of her symptoms are chronic but worse in the last 4 days including bilateral leg pain, decreased sleep and increased fatigue. Reports the last week or two having pain in her chest but none currently. She does not exert herself. No worse on inspiration. Urinary incontinence for "some time" - possible worse the last month or two and more frequent over the last 4 days. Possibly more short of breath over the last 4 days. No fever, chills, change in bowels, abdominal pain, orthopnea, PND, palpitations, presyncope or syncope. Review of PCP notes - patient has not followed up in person in multiple years. Notably weaned off lorazepam in February without the patient coming to the doctor. On discussion with her they have spent the last 60 years together every day and this is the first day they have been apart. He is unable to visit as he has his own medical problems and has not left the house in a year. He is mainly concerned about her getting pain medication for her leg pain. Principal Dx & Hospital Course #1 = Principal Diagnosis (1) (HFpEF) heart failure with preserved ejection fraction: Presents with worsening peripheral edema and leg pain with rapid atrial fibrillation With elevated BNP, hyponatremia from volume overload, and chest x-ray with cardiomegaly and mild congestive change Echocardiogram with EF 55-60%, no WMA's, mild LVH, moderate TR, small pericardial effusion without tamponade, mild MR With acute on chronic HFpEF secondary to rapid A-fib ongoing for likely months -started metoprolol 50 Mg p.o. twice daily for rate control and had significant improvement in rates and less dyspnea -Blood pressure is already controlled -diuresed with Lasix 20 Mg IV twice daily and had improvement in edema and dyspnea--> dc to home on lasix 20mg po daily -home daily weights, low-sodium diet, and fluid restrict to 1800mL/day -Plan to repeat echo within 1 month to reassess pericardial effusion -TSH is elevated at 9.4-adjust LT4 as below -follow BMP in 1 month (2) Bilateral leg pain: Appears to be related to leg swelling and possibly cellulitis given erythema of legs. No specific joint pain and she is wheelchair bound without trauma therefore no XRs taken. venous dopplers negative for DVT Could also have venous stasis and poor nutrition contributing Continue diuresis as above treating with abx for UTI and cellulitis--> ceftriaxone while here and keflex on discharge Pain improved since admission, back to baseline (3) Atrial fibrillation with RVR: New onset although suspect she has had this for sometime as palpitations noted in outpatient notes (previously used lorazepam for this) [id number] - 4, recommend anticoagulation, was initially started on heparin IV drip but converted to Eliquis 5 Mg p.o. twice daily Needs rate control-started metoprolol tartrate 50 mg PO BID with improvement ECHO with preserved EF and no significant valvular disease (4) Pericardial effusion: As noted above (5) Hyponatremia: Hyponatremia, POA Related to CHF with volume overload-now improving with diuresis up to normal Follow BMP as outpt (6) Urinary tract infection: New urinary incontinence and increased frequency UA abnormal and urine culture growing pansensitive E. coli Received ceftriaxone 1g IV daily x 3 doses here and convert to keflex 500mg po bid x 7 more days as outpt for UTI but also for leg cellulitis blood cultures NGTD (7) [place] disease: On hydrocortisone 10mg QID.No stress dose steroids needed Consider reduction/wean off as outpatient with discussion with endocrinology - patient unlikely to follow up with endocrinology on discharge She has been taking this consistently for years (8) Polyneuropathy: Per PCP notes - no real workup for this. Would recommend outpatient EMG/NCS al though doubtful she will be amenable to this. B12 level here is normal (9) Chronic prescription benzodiazepine use: PDMP reviewed at that she has been weaned off lorazepam over January and February this year she picks up her last dose of 4 pills lorazepam 0.5 mg on March 10, 2023 She confirms she is no longer taking lorazepam (10) Hypothyroidism: TSH 3.38 in December 2021, now elevated at 9 Increased levothyroxine to 125 mcg p.o. daily Follow TSH in 4 to 6 weeks (11) GERD without esophagitis: Continue PPI (12) Anxiety: Continue trazodone 150 mg HS Now weaned off lorazepam (13) Cellulitis, leg: as above, keflex x 1 more week, improving Plan VTE prophylaxis -Eliquis Diet - Low Na Disposition -dc to home with home health with 's assistance as per PT/OT recommendations Pt is AAOx3 and is quite competent to make her own decisions, but is homebound due to her and her 's inability to drive, advancing age, etc. This does make doctor's appointments difficult to attend. Home health will be helpful to improve ambulation and possibly assist with communication with doctor's for improved healthcare delivery. Discharge Exam Constitutional WD/WN, vitals as above Respiratory normal respiratory effort; no cough Auscultation: lungs clear to auscultation bilaterally Cardiovascular Rate/Rhythm: regular rate and + irregularly irregular Heart Sounds: no murmur Extremities: + edema (1+ pitting edema lower extremities to the knees bilaterally, improved) Gastrointestinal (Abdomen) normal bowel sounds, soft, nontender, no hepatosplenomegaly Skin mild erythema of bilat LEs to knees Psychiatric Orientation: alert and oriented x 3 Updated Medication List Medication Instructions Recorded Confirmed Type multivitamin 1 tab PO DAILY 11/01/18 05/09/23 History polyethylene glycol 3350 17 8.5 gm PO DAILY PRN Constipation 11/01/18 05/09/23 History gram/dose oral powder (Miralax) vit C 50 mg-E 15 unit-zinc cit 4.5 2 tab PO DAILY 11/01/18 05/09/23 History mg-lutein 2.5 mg-zeaxan chew tablet ([facility] [employer] [facility]) trazodone 100 mg tablet 150 mg (1.5 x 100 mg) PO DAILY 06/24/22 05/09/23 Rx #135 tabs simvastatin 5 mg tablet 5 mg PO DAILY #90 tabs 08/24/22 05/09/23 Rx hydrocortisone 10 mg tablet 10 mg PO Q6H PRN asthma #360 tabs 12/07/22 05/09/23 Rx omeprazole 20 mg capsule,delayed 20 mg PO DAILY #90 caps 03/25/23 05/09/23 Rx release apixaban 5 mg tablet (Eliquis) 5 mg PO BID #60 tabs 05/11/23 Rx cephalexin 500 mg capsule 500 mg PO BID 7 days #14 caps 05/11/23 Rx furosemide 20 mg tablet (Lasix) 20 mg PO DAILY #30 tabs 05/11/23 Rx levothyroxine 125 mcg tablet 125 mcg PO DAILYBB #30 tabs 05/11/23 Rx (Synthroid) metoprolol tartrate 50 mg tablet 50 mg PO BID #60 tabs 05/11/23 Rx Hospital Stay Data Consultations 05/09/23 11:14 ED Decision to Admit Stat Diagnostic Imagining Performed 05/09/23 19:20 US venous doppler LE BI Urgent ECHO Pending Results Patient Have Any Pending Studies at Discharge: No Discharge Instructions Given to Patient (Per Discharging Provider) Please finish out 7 more days of the antibiotic for your UTI and for possible leg cellulitis. You were found to have a rapid heart rate and abnormal heart rhythm called atrial fibrillation. You were started on a medication to help slow down your heart rate called metoprolol. You were also started on a blood thinner called Eliquis to help prevent you from forming blood clots in the heart that can cause strokes. Both of these medicines are to be taken twice a day. If you have any trouble with bleeding such as blood in your stool or urine, vaginal bleeding, vomiting blood, or a large wound that is bleeding, you should come immediately to the hospital. If you fall and hit your head, you should also come to the hospital to get checked out for bleeding inside your head. You were also given a water pill called lasix (furosemide) to help reduce the swelling in your legs. You should have blood work done periodically to check your potassium levels and kidney function while on this medication.You do have a small amount of fluid surrounding your heart and this is called a pericardial effusion. You should have a repeat Echocardiogram to further evaluate this fluid in about one month. Your doctor can order this test for you. Your thyroid function is too low and your levothyroxine dose was increased to 125 mcg daily. You should have your thyroid blood tests checked again in 1-2 months to see if this medication needs to be further adjusted. You will have a visiting nurse and physical and occupational therapists come to your home for rehab. Call your Primary Care doctor if any of the following symptoms or problems start or get worse: * Shortness of breath or difficulty breathing * Wake up at night short of breath * Chest pain * Cough * Swelling of your hands, feet, or legs * More fatigued or tired with your normal activity * Palpitations - sudden fast heart beats WEIGHT * Weigh yourself every morning after using the bathroom. * Use the same scale. * Wear the same amount of clothing. * Write your weight down on a chart. * Call your Primary Care doctor if you gain more than 2-3 pounds in 1-2 days. MEDICATIONS * Use this discharge instruction sheet for medication instructions. * Take your medications at the time your doctor ordered. * Do not skip a dose of your medicines. * If you miss a dose of medicine, take it as soon as possible, but DO NOT DOUBLE A DOSE. * Read your medicine information when you get home. * Know all of the side effects of your medicine. If in doubt, ask your pharmacist * Call your Primary Care doctor's office if you have any side effects. * Be sure all of your doctors know what medicine and herbs you take (including cold, flu, and herbal medicine). Take the following with you to your follow-up doctor appointments: * Weight Chart * Medication List * List of questions Do not drink excessive alcohol, beer or wine. Total Time Total Time Spent Total Time Spent (In Minutes): 45 min Coding Level of Care Code 02529 INP/OBS DISCH >30 MIN Diagnoses (HFpEF) heart failure with preserved ejection fraction I50.30 Bilateral leg pain M79.604; M79.605 Atrial fibrillation with RVR I48.91 Pericardial effusion I31.39 Hyponatremia E87.1 Acute cystitis with hematuria N30.01 Urinary tract infection type: acute cystitis Hematuria presence: with hematuria [place] disease E27.1 Polyneuropathy G62.9 Chronic prescription benzodiazepine use Z79.899 Hypothyroidism E03.9 GERD without esophagitis K21.9 Anxiety F41.9 Cellulitis, leg L03.119
== END 2023-05-11 17:13 | disposition home health service (06) | DRG 308 ==
LOC: ED 09:39 → SUATTDRO 12:13 → EDINP 12:13 → 2W 12:38

== ENCOUNTER 2023-06-16 12:51 | Inpatient (IN) ==
[2023-06-16 14:28] LABS: Basophils # (auto) 0.05 K/uL (0.00-0.20); Basophils % (auto) 0.2 %; Eosinophils # (auto) 0.05 K/uL (0.00-0.50); Eosinophils % (auto) 0.2 %; Hematocrit (blood only) 52.1 % (37.0-47.0); Hemoglobin 17.4 g/dl (12.0-16.0); Immature Granulocytes # (auto) 0.22 K/uL (0.01-0.20); Immature Granulocytes % (auto) 1.1 %; Lymphocytes % (auto) 4.5 %; Mean Corpuscular Hemoglobin 31.2 pg (25.0-34.0); Mean Corpuscular Hgb Conc 33.4 g/dL (32.0-36.0); Mean Corpuscular Volume 93.4 fL (80.0-100.0); Mean Platelet Volume 10.4 fL (9.4-12.4); Monocytes # (auto) 0.93 K/uL (0.11-0.59); Monocytes % (auto) 4.6 %; Neutrophils # (auto) 18.05 K/uL (1.40-6.50); Neutrophils % (auto) 89.4 %; Platelet Count 312 K/uL (130-400); RDW Coefficient of Variation 14.6 % (11.5-14.5); RDW Standard Deviation 49.6 fL (36.4-46.3); Red Blood Count 5.58 M/uL (4.20-5.40)
[2023-06-16 14:36] LABS: Alanine Aminotransferase 39 U/L (7-52); Albumin Globulin Ratio 0.9 (0.9-2); Albumin Level 3.4 gm/dl (3.4-5.0); Alkaline Phosphatase 85 U/L (34-104); Anion Gap 12 (3-11); Aspartate Aminotransferase 45 U/L (13-39); BUN Creatinine Ratio 61.1 (10-20); Bilirubin,Total 0.9 mg/dl (0.2-1.0); Blood Urea Nitrogen 69 mg/dl (6-23); Calcium 8.7 mg/dl (8.6-10.3); Carbon Dioxide 23 mmol/L (21-32); Chloride 95 mmol/L (98-107); Est GFR (African American) 52.4 ml/min; Est GFR (Non-African American) 45.2 ml/min; Globulin 3.9 gm/dl (2.5-4.0); Glucose 122 mg/dl (70-99(Fasting)); Sodium 130 mmol/L (136-145); Total Protein 7.3 gm/dl (6.0-8.3)
[2023-06-16] MEDS: dilTIAZem HCl 5 MG/ML 5 ML VIAL IV STA (15:00)
[2023-06-16] MEDS ORDERED: VANCOMYCIN CONSULT ACTIVE PRN (15:07)
[2023-06-16] MEDS: SODIUM CHLORIDE 0.9% 1,000 ML IV ONE (15:25)
[2023-06-16] MEDS: VANCOMYCIN HCL 1,250 MG in SODIUM CHLORIDE 0.9% 500 ML IV ONE (15:25)
[2023-06-16] MEDS: dilTIAZem HCl 5 MG/ML 5 ML VIAL IV ONE (15:29)
[2023-06-16] MEDS: dilTIAZem HCL 125 MG in DEXTROSE 5% 100 ML IV SCH (15:46)
[2023-06-16] MEDS: PIPERACILLIN/TAZOBACTAM 4.5 GM/120 ML BAG IV ONE (16:00)
--- NOTE | 2023-06-16 16:23 | XRay Report ---
XR chest 1V portable CLINICAL HISTORY: weakness COMPARISON STUDY: Chest radiograph May 09, 2023. FINDINGS: There is no pneumothorax or definite pleural effusion. Apparent left basilar opacity is lik izzy due to a rotated study. Pulmonary vascularity is normal. IMPRESSION: No definite acute findings. Apparent left basilar opacity, likely due to a rotated study . ACT 112: Negative or not required by law. Electronically signed by: Fredo Ingram M.D. 06/16/2023 4:22 PM
--- NOTE | 2023-06-16 16:28 | CT Scan Report ---
CT OF THE HEAD WITHOUT CONTRAST CLINICAL HISTORY: Altered mental status. COMPARISON STUDY: MRI of the brain August 10, 2011. CT DOSE: 922.39 mGy.cm TECHNIQUE: Helical axial images of the head were obtained without IV contrast. Automated exposure con trol was utilized for the study. A dose lowering technique was utilized adhering to the principles o f ALARA. FINDINGS: No acute intracranial hemorrhage, midline shift or mass effect is present. White matter hyp odensity suggests small vessel disease. The ventricular system is unremarkable. The basal cisterns ar e patent. No extra-axial collections are present. There are no findings to suggest acute dural sinus thrombosis or acute territorial infarct. No significant calvarial abnormalities are present. Visualiz ed portions of the sinuses and mastoid air cells are clear. Venous gas within the cavernous sinus is related to IV. IMPRESSION: No acute intracranial findings. ACT 112: Negative or not required by law. Electronically signed by: Fredo Ingram M.D. 06/16/2023 4:27 PM
[2023-06-16] MEDS: STAT IV Infusion **Titration per Protocol STA (16:48)
[2023-06-16 17:10] LABS: INR 1.3 (0.9-1.1); Partial Thromboplastin Ratio 1.1; Partial Thromboplastin Time 30 Seconds (21-31); Prothrombin Time 13.7 Seconds (9.0-12.0)
[2023-06-16 17:16] LABS: Creatine Kinase 197 U/L (26-192); Lipase 21 U/L (11-82); Magnesium 2.4 mg/dl (1.7-2.4)
[2023-06-16] MEDS ORDERED: PIPERACILLIN/TAZOBACTAM 4.5 GM in DEXTROSE 5% MINI-B 100 ML IV ONE (17:18)
[2023-06-16 17:23] LABS: Appearance Urine Clear (Clear); Bilirubin Urine Negative (Negative); Blood Urine 3+ (Negative); Color Urine Yellow; Glucose Urine UA Negative (Negative); Ketones Urine Negative (Negative); Leukocyte Esterase Urine Negative (Negative); Nitrite Urine Negative (Negative); Protein Urine Trace (Negative); Urobilinogen Urine Negative (Negative)
--- NOTE | 2023-06-16 17:24 | History & Physical Report ---
Date of Service June 16, 2023 Assessment & Plan (1) Sepsis: Plan: Source - unstageable pressure sacral ulcer with surrounding cellulitis Empiric antibiotics with Zosyn and daptomycin Follow up blood and urine cultures (2) Sacral decubitus ulcer: Plan: Unstageable with surrounding cellulitis CT abdomen/pelvis without IV contrast ordered to rule out obstructive uropathy in addition to underlying abscess - no underlying abscess seen Antibiotics as above Consult surgery to assess for debridement (3) Hematuria: Plan: Cover for UTI with Zosyn and daptomycin Hold Eliquis Diallo catheter appropriately placed for sepsis in the emergency room (4) ZUHAIR (acute kidney injury): Plan: Dry mucus membranes with decreased oral intake Pitting edema is more likely due to tricuspid regurgitation with immobility causing venous stasis although reportedly she did have some improvement with edema/hyponatremia utilizing Lasix and better rate control last admission No post obstructive cause on CT Lactate 2.7 with repeat pending, 2L NSS bolus ordered and currently being given (5) Atrial fibrillation with RVR: Plan: Diagnosed in April 2023 with a suspects it has been going on for much longer Eliquis on hold due to hematuria and possibly needing surgery as above Unclear if she has been taking metoprolol, she appears to be tolerating diltiazem 5 mg/hr IV drip although directed RN to not turn it up beyond this. Suspect she was not taking her metoprolol and this will hold her over until she restarts this tonight and which point it can be discontinued. (6) Pericardial effusion: Plan: Noted during her previous admission. Limited TTE ordered to reassess this (7) (HFpEF) heart failure with preserved ejection fraction: Plan: Clinically dry as explained above on admission Hold Lasix Monitor for worsening shortness of breath/hypoxia (8) Hyponatremia: Plan: At baseline sodium 130. Hypovolemic. ?secondary to lasix Monitor following normal saline bolus with BMP in a.m. (9) Bilateral leg pain: Plan: Suspect due to leg swelling which is out of portion to overall volume status due to tricuspid regurgitation and immobility. This was a major complaint in April in addition with no venous thromboembolism seen on ultrasound Doppler at that time - therefore no need to repeat this. (10) Current chronic use of systemic steroids: Plan: Unclear if she is taking hydrocortisone or reasons for this but still listed as PRN on her medication list Not represcribed since February Random cortisol level pending (11) Hypothyroidism: Plan: TSH with a.m. labs Continue levothyroxine 125 mcg p.o. daily (12) Cellulitis: Plan VTE prophylaxis - unable to tolerate SCDs due to bilateral leg pain, anticoagulation on hold due to hematuria and possible need for surgery Diet - low-sodium Disposition - admit to PCU Admission and Anticipated Discharge Date Admission Date: June 16, 2023 History of Present Illness Chief Complaint: Bilateral leg pain Primary Care Provider: Alejandro Keyes MD Esteban Grace is an 83 year old female who presents to the ER after being sent in by her home health care nurse being found in her own excrement. The patient notes bilateral leg pain but cannot give me any timeline and this was present when I admitted her back in April. She has a large unstageable sacral pressure ulcer on her back which she is surprised about as her main pain is in her legs. She does note back pain but cannot give me any timeline on this. On discussion with her . 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 He notes a 1 week history of progressive decline with her already limited mobility - she usually walks a few steps from her wheelchair where she is spends almost 24 hours a day to the toilet. She has been unable to get to the toilet for the last 2 days. They have had an home health care nurse, since her hospitalization in April although he missed a visit 2 weeks ago. He called the home health care nurse today as he was concerned about his 's limited mobility. Allergies Allergy/AdvReac Type Severity Reaction Status Date / Time No Known Drug Allergies Allergy Unknown Verified 06/16/23 15:24 Home Medications Medication Instructions Recorded Confirmed Type multivitamin 1 tab PO DAILY 11/01/18 06/16/23 History polyethylene glycol 3350 17 8.5 gm PO DAILY PRN Constipation 11/01/18 06/16/23 History gram/dose oral powder (Miralax) vit C 50 mg-E 15 unit-zinc cit 4.5 2 tab PO DAILY 11/01/18 06/16/23 History mg-lutein 2.5 mg-zeaxan chew tablet ([facility]) trazodone 100 mg tablet 150 mg (1.5 x 100 mg) PO DAILY 06/24/22 06/16/23 Rx #135 tabs simvastatin 5 mg tablet 5 mg PO DAILY #90 tabs 08/24/22 06/16/23 Rx hydrocortisone 10 mg tablet 10 mg PO Q6H PRN asthma #360 tabs 12/07/22 06/16/23 Rx omeprazole 20 mg capsule,delayed 20 mg PO DAILY #90 caps 03/25/23 06/16/23 Rx release apixaban 5 mg tablet (Eliquis) 5 mg PO BID #180 tabs 06/13/23 06/16/23 Rx furosemide 20 mg tablet (Lasix) 20 mg PO DAILY #90 tabs 06/13/23 06/16/23 Rx levothyroxine 125 mcg tablet 125 mcg PO DAILYBB #90 tabs 06/13/23 06/16/23 Rx (Synthroid) metoprolol tartrate 50 mg tablet 50 mg PO BID #180 tabs 06/13/23 06/16/23 Rx Past Med/Surg History Medical History Chronic prescription benzodiazepine use (HFpEF) heart failure with preserved ejection fraction Bronchitis History of vaginitis History of edema [place] disease Surgical History History of ovarian cystectomy S/P thyroid surgery H/O oophorectomy Family History Sister Breast cancer Hearing loss Allergies Mother Thyroid cancer Brother Hearing loss Other No family history of adverse response to anesthesia No family history of bleeding disorder Denies family history of Colon cancer Ovarian cancer Myocardial infarction Social History Smoking Status: Never smoker Second Hand Exposure: No; Do You Dip or Chew Tobacco: No; Hx Alcohol Use: No Hx Substance Use: No Preferred Language: Salvadorean Communication Ability: Effective Nitroglycerin 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 Operator Batch Required: No Beliefs That Will Affect Care: None marital status: Current Living Situation: Spouse Current Living Situation Comment: spouse is blind, home health nurse available current occupational status: retired Other Information That Helps Us Care for You: No Feels Safe at Home: Yes Safety Concerns: Feels Safe At This Time Physical Activity Frequency: Does not Exercise Seatbelt Use: always Assistive Devices: Walker and Wheelchair Review of Systems 2 Review of Systems: All systems reviewed & are unremarkable except as noted in HPI & below Physical Exam 2 Physical Exam: Constitutional: well developed; + not well nourished and no acute distress Eyes: PERRL, conjunctivae normal, anicteric sclerae Respiratory: normal respiratory effort, lungs clear to auscultation Cardiovascular: Rate/Rhythm: + tachycardic and + irregularly irregular H eart Sounds: no murmur Extremities: normal capillary refill, + calf tenderness (b/l) and + pedal edema (2+ R > L pitting pedal edema) Gastrointestinal (Abdomen): normal bowel sounds, soft, nontender, no hepatosplenomegaly Skin: Unstageable sacral pressure ulcer with surrounding skin breakdown and cellulitis tracking down right leg as seen above in pictures Neurologic: moves all extremities and awake; no focal motor deficits (No unilateral weakness) and not confused Psychiatric: Orientation: alert, oriented to person and oriented to place; + not oriented to time Genitourinary: + CVA tenderness (Bilateral) Results & Data Results & Data Vital Signs (Past 12 Hours) Vital Signs Temp Pulse Pulse Resp BP BP Pulse Ox 06/16/23 17:00 115 H 24 125/104 H 94 06/16/23 16:24 127 H 06/16/23 15:50 123 H 17 97/61 L 98 06/16/23 14:50 156 H 117/96 06/16/23 13:01 36.5 C 124 H 16 137/84 94 O2 Del Method 06/16/23 17:00 Room Air 06/16/23 16:24 06/16/23 15:50 Room Air 06/16/23 14:50 06/16/23 13:01 Room Air Laboratory Results Abnormal lab results 06/16/23 06/16/23 Range/Units 14:00 Unknown WBC 20.20 H (4.8-10.8) K/ul RBC 5.58 H (4.20-5.40) M/uL Hgb 17.4 H (12.0-16.0) g/dl Hct 52.1 H (37.0-47.0) % RDW Std Deviation 49.6 H (36.4-46.3) fL RDW Coeff of Alvarez 14.6 H (11.5-14.5) % Neut # (Auto) 18.05 H (1.40-6.50) K/uL Lymph # (Auto) 0.90 L (1.20-3.40) K/uL [place] # (Auto) 0.93 H (0.11-0.59) K/uL Immature Gran # (Auto) 0.22 H (0.01-0.20) K/uL PT 13.7 H (9.0-12.0) Seconds INR 1.3 H (0.9-1.1) Sodium 130 L (136-145) mmol/L Chloride 95 L (98-107) mmol/L Anion Gap 12 H (3-11) BUN 69 H (6-23) mg/dl BUN/Creatinine Ratio 61.1 H (10-20) Glucose 122 H (70-99(Fasting)) mg/dl Lactate 2.9 H* (0.4-2.0) mmol/L AST 45 H (13-39) U/L Total Creatine Kinase 197 H (26-192) U/L Diagnostic Findings XR chest 1V portable CLINICAL HISTORY: weakness COMPARISON STUDY: Chest radiograph May 09, 2023. FINDINGS: There is no pneumothorax or definite pleural effusion. Apparent left basilar opacity is likely due to a rotated study. Pulmonary vascularity is normal. IMPRESSION: No definite acute findings. Apparent left basilar opacity, likely due to a rotated study. CT OF THE HEAD WITHOUT CONTRAST CLINICAL HISTORY: Altered mental status. COMPARISON STUDY: MRI of the brain August 10, 2011. CT DOSE: 922.39 mGy.cm TECHNIQUE: Helical axial images of the head were obtained without IV contrast. Automated exposure control was utilized for the study. A dose lowering technique was utilized adhering to the principles of ALARA. FINDINGS: No acute intracranial hemorrhage, midline shift or mass effect is present. White matter hypodensity suggests small vessel disease. The ventricular system is unremarkable. The basal cisterns are patent. No extra-axial collections are present. There are no findings to suggest acute dural sinus thrombosis or acute territorial infarct. No significant calvarial abnormalities are present. Visualized portions of the sinuses and mastoid air cells are clear. Venous gas within the cavernous sinus is related to IV. IMPRESSION: No acute intracranial findings. Medications Administered ER Medications Given: Normal saline 2 L bolus Vancomycin 1250 mg IV Zosyn 4.5 g IV Diltiazem 15 mg IV bolus and 5 mg/h drip ECG Rate (beats per minute): 122 Rhythm: atrial fibrillation Findings: + other (T wave flattening throughout) Comparison ECG Date: from (May 09, 2023) Change: no significant change Code Status & VTE Plan Code Status Full VTE Prophylaxis Plan VTE Prophylaxis will be ordered: No Reason for no VTE drug order: Contraindicated Reason for no VTE mechanical prophylaxis: Treatment not tolerated Critical Care Time Critical Care Time: Yes Total Critical Care Time: 48 PG Care Time/CCT Total # of Minutes Spent Total Time Spent with Patient: Total time spent is greater than 50% in coordination of care (as documented) at patient's floor/unit and/or counseling patient: Critical Care Time: Yes Total Critical Care Time: 48 Coding Level of Care Code 09850 INT INP/OBS CARE 3/75MIN Diagnoses Sepsis A41.9 Sepsis type: sepsis due to unspecified organism Sacral decubitus ulcer L89.159 Hematuria R31.9 ZUHAIR (acute kidney injury) N17.9 Atrial fibrillation with RVR I48.91 Pericardial effusion I31.39 (HFpEF) heart failure with preserved ejection fraction I50.30 Hyponatremia E87.1 Bilateral leg pain M79.604; M79.605 Current chronic use of systemic steroids Z79.52 Hypothyroidism E03.9 Cellulitis L03.90 Additional Codes Critical Care Time - Critical Care Time: Yes ([id number]) (1) Sepsis Sepsis type: sepsis due to unspecified organism
[2023-06-16 18:01] LABS: Bacteria Urine 1+ (Negative); Epithelial Cell Urine 0-5 /lpf (0-5); Mucus Urine Present (None Prsent); RBC Urine >30 /hpf (0-4)
[2023-06-16 18:10] LABS: Adenovirus PCR Not Detected (NotDetected); Bordetella parapertussis PCR Not Detected (NotDetected); Bordetella pertussis PCR Not Detected (NotDetected); Chlamydia pneumoniae PCR Not Detected (NotDetected); Coronavirus 229E PCR Not Detected (NotDetected); Coronavirus CoV-2 (COVID19)PCR Not Detected (NotDetected); Coronavirus HKU1 PCR Not Detected (NotDetected); Coronavirus NL63 PCR Not Detected (NotDetected); Coronavirus OC43PCR Not Detected (NotDetected); Human Metapneumovirus PCR Not Detected (NotDetected); Influenza A PCR Not Detected (NotDetected); Influenza B PCR Not Detected (NotDetected); Mycoplasma pneumoniae PCR Not Detected (NotDetected); Parainfluenza Virus 1 PCR Not Detected (NotDetected); Parainfluenza Virus 2 PCR Not Detected (NotDetected); Parainfluenza Virus 3 PCR Not Detected (NotDetected); Parainfluenza Virus 4 PCR Not Detected (NotDetected); Respiratory Syncytial VirusPCR Not Detected (NotDetected); Rhinovirus/Enterovirus PCR Not Detected (NotDetected)
--- NOTE | 2023-06-16 18:42 | CT Scan Report ---
CT abd pelvis wo con CLINICAL HISTORY: unstageable sacral pressure ulcer/cellulitis, ZUHAIR TECHNIQUE: Helical axial images of the abdomen and pelvis were obtained. Automated dose lowering tech niques and/or adjustment according to patient size were utilized for this exam. This exam was perfor med without intravenous contrast. CT DOSE: 942.18 mGy.cm COMPARISON: None available at the time of this dictation. FINDINGS: Lower chest: No acute abnormality. Liver: Unremarkable. No focal lesions are seen. Gallbladder and biliary tree: No calcified gallstones. Normal caliber wall. No intra- or extrahepatic biliary ductal dilation. Pancreas: Unremarkable, no focal lesions. Spleen: Unremarkable. Adrenals: Unremarkable. Kidneys and ureters: Unremarkable. Bladder: Diallo catheter is seen. Reproductive organs: Unremarkable. Bowel: Diverticulosis is seen without evidence of diverticulitis. A small hiatal hernia is seen. Lymph nodes Retroperitoneal: Unremarkable. Pelvic: Unremarkable. Mesenteric: Unremarkable. Peritoneum: Normal. Vessels: Atherosclerotic calcifications are seen. Abdominal wall: Diffuse soft tissue stranding is seen. No significant sacral decubitus ulcer is seen. Bones: Degenerative changes and scoliosis are seen. IMPRESSION: No significant sacral decubitus ulcer. Soft tissue stranding in the subcutaneous tissues which may re flect cellulitis. Additional findings as above. ACT 112: Negative or not required by law. Electronically signed by: Vladimir Sharp M.D. 06/16/2023 6:39 PM
--- NOTE | 2023-06-16 19:42 | Surgery Consultation ---
Date of Consultation June 16, 2023 Assessment & Plan (1) Sacral decubitus ulcer: The patient has been admitted on the hospitalist service. From surgical perspective we recommend the following: Treatment of patient's atrial fibrillation as directed by the medical service Due to the patient's sacral wound offloading measures should be employed Measures to decrease urine and feces contamination should be employed. Patient already has had a Diallo catheter in place for urinary diversion Patient has been started on broad-spectrum antibiotics in form of daptomycin and Zosyn and he should continue. Blood and urine cultures have been sent and these results should be followed and antibiotics be tailored based on these results I discussed case with my attending physician Dr. Taylor. As we do not know the exact time of 1 patient took her most recent dose of Eliquis any debridement will be deferred until early next week. Will continue to follow along with the patient with additional recommendations to be forthcoming based on her clinical course as unfolds Supervising Physician Co-Signing Physician Notes I personally saw and evaluated the patient with Ishaan Quick PA-C and agree with the assessment and plan. Her CT images and results were personally viewed and interpreted by myself She has no signs of abscess or NSTI on CT or clinically Will plan on debridement of a sacral decubitus ulcer in [place] next Tuesday Please hold any blood thinners until that time History of Present Illness Reason for Consultation: Sacral pressure ulcer Attending Physician: Rahul Cuenca MD History of Present Illness This is an 83-year-old female who was sent to the emergency department at the recommendation of her home health nurse secondary to a sacral decubitus ulcer. The patient was found by her home health nurse at home today lying in her own excrement. When they looked at the patient's backside they noted the patient had a large pressure ulcer noted and this prompted her visit to the emergency department. I asked the patient if she is able to ambulate and she says she can ambulate very little and she spends majority of her day in bed with her legs propped up. The patient notes that she was not aware that she had any such pr essure ulcer and she notes that the areas not painful. She denies any fevers, shakes, or chills. She has no other complaints. The hospitalist team was asked to admit the patient as she was found to be in atrial fibrillation with rapid ventricular response. There is also concern that the patient was septic with the sacral wound being a component of this issue. The case was discussed with the hospitalist service. They have noted that the patient's diagnosis of atrial fibrillation is not new and the patient does take Eliquis and metoprolol for this as an outpatient. The patient is unsure when she took her most recent dose of Eliquis but thinks she took it today. The hospitalist did have a discussion with the patient's and he is suspicious that she may not have taken her medications over the past 2 days. Since arrival to the hospital the patient has had labs and imaging which independent reviewed. She did have a CT scan of the head that showed no acute intracranial findings. Chest x-ray showed no definite pneumonia. There was some question of a left basilar opacity but the interpreting radiologist felt that this could have been due to rotation of the x-ray study. Patient also had a CT scan of the abdomen and pelvis. This showed some soft tissue stranding in the subcutaneous tissues of the sacral region felt to represent cellulitis. There is no significant decubitus ulcer noted. CBC revealed white blood cell count was 20.2. Hemoglobin and hematocrit were 17.4 and 52.1. Platelet count was 312,000. Coagulation studies showed an INR of 1.3. Chemistry profile showed sodium was 130 with a potassium of 5.0. BUN was 69 with a normal creatinine. Her lactic acid level was 2.9. Urinalysis showed 5-10 white blood cells per high-power field. It was negative for nitrites and also negative for leukocyte Estrace. There is 1+ bacteria noted on this study. Patient did have a bio fire sent and all viruses assessed were negative. At the time of my interview the patient was resting comfortably in bed she was in no distress. Allergies Allergy/AdvReac Type Severity Reaction Status Date / Time No Known Drug Allergies Allergy Unknown Verified 06/16/23 15:24 Home Medications Medication Instructions Recorded Confirmed Type multivitamin 1 tab PO DAILY 11/01/18 06/16/23 History polyethylene glycol 3350 17 8.5 gm PO DAILY PRN Constipation 11/01/18 06/16/23 History gram/dose oral powder (Miralax) vit C 50 mg-E 15 unit-zinc cit 4.5 2 tab PO DAILY 11/01/18 06/16/23 History mg-lutein 2.5 mg-zeaxan chew tablet ([facility]) trazodone 100 mg tablet 150 mg (1.5 x 100 mg) PO DAILY 06/24/22 06/16/23 Rx #135 tabs simvastatin 5 mg tablet 5 mg PO DAILY #90 tabs 08/24/22 06/16/23 Rx hydrocortisone 10 mg tablet 10 mg PO Q6H PRN asthma #360 tabs 12/07/22 06/16/23 Rx omeprazole 20 mg capsule,delayed 20 mg PO DAILY #90 caps 03/25/23 06/16/23 Rx release apixaban 5 mg tablet (Eliquis) 5 mg PO BID #180 tabs 06/13/23 06/16/23 Rx furosemide 20 mg tablet (Lasix) 20 mg PO DAILY #90 tabs 06/13/23 06/16/23 Rx levothyroxine 125 mcg tablet 125 mcg PO DAILYBB #90 tabs 06/13/23 06/16/23 Rx (Synthroid) metoprolol tartrate 50 mg tablet 50 mg PO BID #180 tabs 06/13/23 06/16/23 Rx Patient History Medical History Chronic prescription benzodiazepine use (HFpEF) heart failure with preserved ejection fraction Bronchitis History of vaginitis History of edema [place] disease Surgical History History of ovarian cystectomy S/P thyroid surgery H/O oophorectomy Family History Sister Breast cancer Hearing loss Allergies Mother Thyroid cancer Brother Hearing loss Other No family history of adverse response to anesthesia No family history of bleeding disorder Denies family history of Colon cancer Ovarian cancer Myocardial infarction Social History Smoking Status: Never smoker Second Hand Exposure: No; Do You Dip or Chew Tobacco: No; Hx Alcohol Use: No Hx Substance Use: No Preferred Language: Gabonese Communication Ability: Effective Retirement Specialist Required: No Beliefs That Will Affect Care: None marital status: Current Living Situation: Spouse Current Living Situation Comment: spouse is blind, home health nurse available current occupational status: retired Other Information That Helps Us Care for You: No Feels Safe at Home: Yes Safety Concerns: Feels Safe At This Time Physical Activity Frequency: Does not Exercise Seatbelt Use: always Assistive Devices: Walker and Wheelchair Review of Systems Constitutional: no fever and no chills Ear, Nose, Mouth, Throat: no hearing loss Respiratory: no cough Cardiovascular: no chest pain Gastrointestinal: no abdominal pain, no nausea and no vomiting Genitourinary: no dysuria Musculoskeletal: no back pain Integumentary: as per Subjective / HPI Neurologic: + generalized weakness Physical Exam Physical Exam: With a female nurse forest landscape ecology professor present the patient was turned and her sacrum was examined. The patient had a large area of eschar on the sacrum. There is a great deal of surrounding erythema. There is no crepitus noted in the soft tissue. There are no open areas or areas of drainage. Constitutional: + disheveled; no acute distress Eyes: no conjunctival abnormality ENMT: Ears: no hearing impairment Mouth: no oropharynx abnormality Neck: trachea midline Respiratory: normal respiratory effort; no respiratory distress and no labored breathing Cardiovascular: Rate/Rhythm: + irregularly irregular Gastrointestinal (Abdomen): Soft and nontender. Musculoskeletal: 2+ lower extremity edema noted bilateral ly Skin: no rashes Neurologic: moves all extremities Results & Data Vital Signs (Past 12 Hours) Vital Signs Temp Pulse Pulse Resp BP BP Pulse Ox 06/16/23 18:54 36.2 C L 130 H 18 109/67 97 06/16/23 18:33 132 H 22 97/77 L 96 06/16/23 17:00 115 H 24 125/104 H 94 06/16/23 16:24 127 H 06/16/23 15:50 123 H 17 97/61 L 98 06/16/23 14:50 156 H 117/96 06/16/23 13:01 36.5 C 124 H 16 137/84 94 O2 Del Method 06/16/23 18:54 Room Air 06/16/23 18:33 Room Air 06/16/23 17:00 Room Air 06/16/23 16:24 06/16/23 15:50 Room Air 06/16/23 14:50 06/16/23 13:01 Room Air PG Care Time/CCT Total # of Minutes Spent Total Time Spent with Patient: Total time spent is greater than 50% in coordination of care (as documented) at patient's floor/unit and/or counseling patient: Coding Level of Care Code 08614 INT INP/OBS CARE MIN Diagnoses Sacral decubitus ulcer L89.159
[2023-06-16] MEDS: ACETAMINOPHEN 325 MG TAB PO PRN (20:34)
[2023-06-16] MEDS: traZODone HCL 50 MG TAB PO SCH (20:34)
[2023-06-16] MEDS: PIPERACILLIN/TAZOBACTAM 4.5 GM in DEXTROSE 5% MINI-B 100 ML IV SCH (20:52)
[2023-06-16] MEDS: DAPTOmycin 275 MG in SYRINGE 0 ML IV SCH (20:52)
[2023-06-16] MEDS ORDERED: APIXABAN 5 MG TABLET PO SCH (21:00)
[2023-06-16] MEDS: METOPROLOL TARTRATE 50 MG TAB PO SCH (21:27)
--- NOTE | 2023-06-16 21:42 | Communication Note ---
Date of Service: June 16, 2023 Suspect lactate increased (2.7 -> 2.9) due to hypotension related to diltiazem drip with rapid resolution of BP after stopping this. Rate control maybe s omewhat appropriate for underlying sepsis. Suspect she has not been taking her metoprolol however and some increased rate is inappropriate - will utilize digoxin rather than diltiazem to avoid further hypotension. Repeat lactate ordered for midnight and in the AM as should now start improving off diltiazem drip and if not should prompt reassessment overnight. Patient more awake and alert than while in the ER. Able to tell me she is taking hydrocortisone regularly still despite her questioning that it is PRN for asthma and she has not had this in years. Random cortisol level mildly elevated. In setting of sepsis and hypotension will start stress dose steroids with hydrocortisone 100mg IV now then 50mg q6h. Fluid status s/p NSS 2L bolus given in the ER. Given recent history of requiring diuresis will avoid further maintenance fluids (pt able to eat and drink) but if hypotensive off diltiazem would favor additional up to 1L bolus in 500ml increments overnight prior to vasopressors as no concerns for pulmonary edema or shortness of breath currently.
[2023-06-16] MEDS: HYDROCORTISONE SOD 100 MG in SYRINGE 0 ML IV STA (22:53)
[2023-06-16] MEDS: DIGOXIN 250 MCG in SYRINGE 9 ML IV STA (22:53)
--- NOTE | 2023-06-16 23:56 | Emergency Department Note ---
History of Present Illness General Chief complaint: Illness Stated complaint: REFERRED BY HOME HEALTH FOR EVAL Time Seen by Provider: 06/16/23 14:45 Source: patient and RN notes reviewed History of Present Illness Provider complaint: Failure to thrive Maximum Pain Intensity: 5 83-year-old female presents emergency department for failure to thrive. Patient was referred here by her home health care nurse. According to EMS they were called to the patient's residence daily for a lift assist. Patient states she cannot get up or stand on her own. Patient reports pain in her buttocks area. No recent falls or traumas. Home Medications Medication Instructions Recorded Confirmed Type multivitamin 1 tab PO DAILY 11/01/18 06/16/23 History polyethylene glycol 3350 17 8.5 gm PO DAILY PRN Constipation 11/01/18 06/16/23 History gram/dose oral powder (Miralax) vit C 50 mg-E 15 unit-zinc cit 4.5 2 tab PO DAILY 11/01/18 06/16/23 History mg-lutein 2.5 mg-zeaxan chew tablet ([facility]) trazodone 100 mg tablet 150 mg (1.5 x 100 mg) PO DAILY 06/24/22 06/16/23 Rx #135 tabs simvastatin 5 mg tablet 5 mg PO DAILY #90 tabs 08/24/22 06/16/23 Rx hydrocortisone 10 mg tablet 10 mg PO Q6H PRN asthma #360 tabs 12/07/22 06/16/23 Rx omeprazole 20 mg capsule,delayed 20 mg PO DAILY #90 caps 03/25/23 06/16/23 Rx release apixaban 5 mg tablet (Eliquis) 5 mg PO BID #180 tabs 06/13/23 06/16/23 Rx furosemide 20 mg tablet (Lasix) 20 mg PO DAILY #90 tabs 06/13/23 06/16/23 Rx levothyroxine 125 mcg tablet 125 mcg PO DAILYBB #90 tabs 06/13/23 06/16/23 Rx (Synthroid) metoprolol tartrate 50 mg tablet 50 mg PO BID #180 tabs 06/13/23 06/16/23 Rx Allergies Allergy/AdvReac Type Severity Reaction Status Date / Time No Known Drug Allergies Allergy Unknown Verified 06/16/23 15:24 Past Med/Surg History Medical History Chronic prescription benzodiazepine use (HFpEF) heart failure with preserved ejection fraction Bronchitis History of vaginitis History of edema Layton disease Surgical History History of ovarian cystectomy S/P thyroid surgery H/O oophorectomy Family History Sister Breast cancer Hearing loss Allergies Mother Thyroid cancer Brother Hearing loss Other No family history of adverse response to anesthesia No family history of bleeding disorder Denies family history of Colon cancer Ovarian cancer Myocardial infarction Social History Smoking Status: Never smoker Second Hand Exposure: No; Do You Dip or Chew Tobacco: No; Hx Alcohol Use: No Hx Substance Use: No Preferred Language: Portuguese Communication Ability: Effective 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 Beliefs That Will Affect Care: None marital status: Current Living Situation: Spouse Current Living Situation Comment: spouse is blind, home health nurse available current occupational status: retired Other Information That Helps Us Care for You: No Feels Safe at Home: Yes Safety Concerns: Feels Safe At This Time Physical Activity Frequency: Does not Exercise Seatbelt Use: always Assistive Devices: Walker and Wheelchair Physical Exam Vital Signs Vital Signs - 24 hr 06/16/23 13:01 06/16/23 14:50 06/16/23 15:50 Temperature 36.5 C Temperature Source Temporal Artery Scan Pulse Rate 124 H Pulse Rate [Apical] 156 H 123 H Respiratory Rate 16 17 Respiratory Effort / Characteristics Non-Labored Spontaneous Non-Labored Spontaneous Respiratory Depth Normal Normal Respiratory Pattern Regular Blood Pressure 137/84 Blood Pressure [Right Arm] 117/96 97/61 L Blood Pressure Mean 101 Blood Pressure Mean [Right Arm] 103 73 Blood Pressure Position [Right Arm] Semi-fowlers Semi-fowlers Pulse Oximetry 94 98 Oxygen Delivery Method Room Air Room Air Sepsis Recent Fever Within 48 Hours No Sepsis New/Unexplained Change in Mental Status No Sepsis Action Taken by Nursing No Action Required 06/16/23 16:24 06/16/23 17:00 Temperature Temperature Source Pulse Rate 127 H Pulse Rate [Apical] 115 H Respiratory Rate 24 Respiratory Effort / Characteristics Respiratory Depth Normal Respiratory Pattern Blood Pressure Blood Pressure [Right Arm] 125/104 H Blood Pressure Mean Blood Pressure Mean [Right Arm] 111 Blood Pressure Position [Right Arm] Pulse Oximetry 94 Oxygen Delivery Method Room Air Sepsis Recent Fever Within 48 Hours Sepsis New/Unexplained Change in Mental Status Sepsis Action Taken by Nursing Physical Exam GENERAL: Dirty disheveled and ill-appearing. HENT: Exam performed. -Head: Normocephalic and atraumatic. -Right Ear: External ear normal. No mastoid erythema -Left Ear: External ear normal. No mastoid erythema -Mouth/Throat: Dry mucous membranes. EYES: Conjunctivae and EOM are normal. Pupils are equal, round, and reactive to light. Right eye exhibits no discharge. Left eye exhibits no discharge. No scleral icterus. NECK: Normal range of motion. Neck supple. No JVD present. CV: Tachycardic rate, irregular rhythm, normal heart sounds and intact distal pulses. There is no peripheral edema. Palpable radial pulses bue. PULM/CHEST: Effort normal and breath sounds normal. No respiratory distress. No stridor. She has no wheezes. She has no rales. ABD: The abdomen is soft. There is no tenderness. There is no rebound, no guarding. MUSC/SKEL: Normal range of motion. There is no peripheral edema, tenderness or deformity. LYMPH: No cervical adenopathy. NEURO: Motor and sensation grossly intact. SKIN: Large stage II/III sacral decubitus ulcer that is covered in feces with surrounding erythema and warmth consistent with cellulitis. Course Course 1445: The patient was evaluated in room C9. A complete history and physical exam was performed Cardiac monitoring: An order was placed for continuous cardiac monitoring. The monitor shows a rate of 140-170 with atrial fibrilation rhythm interpreted by me Patient was seen during a time of extreme volume and extreme acuity in the emergency department. Nursing triage protocols were initiated and labs were drawn by protocol in the triage area. Labs showed a leukocytosis of 20. Patient does have a history of atrial fibrillation. Patient is afebrile. Atrial fibrillation with RVR could be secondary to sepsis. Sepsis labs will be added to the blood work that was sent down including lactic acid and cultures. IV fluid bolus ordered for the patient 30 cc/kg. Cardizem bolus ordered for the patient which improved the patient's ventricular rate to 100-120. Empiric antibiotics will be started vancomycin for decubitus ulcer and cellulitis. 1530: Patient's blood pressure is stable and her heart rate is improved with the Cardizem bolus but her heart rate is now increasing again into the 1 20-130 ventricular rate area with atrial fibrillation. Lactic acid is elevated. Zosyn ordered for antibiotics. Patient be started on Cardizem drip. 1630: Vital signs stable on Cardizem drip. Labs show leukocytosis of 20.2 hemoglobin 17.4 Lactic acid 2.7. Chest x-ray and CT of the head within normal limits. Patient will be admitted to the [facility] team Dr. Joellen fitzgerald. Administered Medications Acetaminophen (Acetaminophen 325 Mg Tab) 650 mg PO Q4H PRN PRN Reason: Pain or Fever Stop: 07/16/23 18:53 Last Admin: 06/16/23 20:34 Dose: 650 mg Documented By: SUSAN Daptomycin 275 mg/ Syringe 5.5 mls @ 2.75 mls/min IV Q24H NATASHA; Protocol Stop: 06/23/23 18:59 Last Admin: 06/16/23 20:52 Dose: 2.75 mls/min Documented By: SUSAN Piperacillin Sod/Tazobactam (Sod 4.5 gm/ Dextrose) 100 mls @ 25 mls/hr IV Q8H NATASHA; Protocol Stop: 06/23/23 20:59 Last Admin: 06/16/23 20:52 Dose: 25 mls/hr Documented By: SUSAN Trazodone HCl (Trazodone Hcl 50 Mg Tab) 150 mg PO HS NATASHA Stop: 07/16/23 20:59 Last Admin: 06/16/23 20:34 Dose: 150 mg Documented By: SUSAN Discontinued Medications Diltiazem HCl (Diltiazem Hcl 5 Mg/Ml 5 Ml Vial) Confirm Administered Dose 25 mg IV .STK-MED ONE Stop: 06/16/23 14:57 Last Admin: 06/16/23 15:29 Dose: Not Given Documented By: NEHEMIAS Diltiazem HCl (Diltiazem Hcl 5 Mg/Ml 5 Ml Vial) 15 mg IV NOW STA Stop: 06/16/23 15:20 Last Admin: 06/16/23 15:00 Dose: 15 mg Documented By: NEHEMIAS Co-signed By: ACC Vancomycin HCl 1,250 mg/ (Sodium Chloride) 525 mls @ 200 mls/hr IV NOW ONE Stop: 06/16/23 17:44 Last Infusion: 06/16/23 18:45 Dose: Infused Documented By: Admin: 06/16/23 15:25 Dose: 200 mls/hr Documented By: NEHEMIAS Sodium Chloride (Nss) 1,000 mls @ 999 mls/hr IV .Q1H1M ONE Stop: 06/16/23 16:16 Last Infusion: 06/16/23 17:08 Dose: Infused Documented By: MMGreg Admin: 06/16/23 16:05 Dose: 999 mls/hr Documented By: Infusion: 06/16/23 16:05 Dose: Infused Documented By: Admin: 06/16/23 15:25 Dose: 999 mls/hr Documented By: NEHEMIAS Diltiazem HCl 125 mg/ Dextrose 125 mls @ 5 mls/hr IV .Q24H NATASHA; Protocol Stop: 07/16/23 15:29 Last Titration: 06/16/23 20:57 Dose: 0 mg/hr, 0 mls/hr Documented By: SUSAN Co-signed By: DLP Titration: 06/16/23 19:03 Dose: 5 mg/hr, 5 mls/hr Documented By: SUSAN Co-signed By: MP Titration: 06/16/23 17:46 Dose: 5 mg/hr, 5 mls/hr Documented By: EMILY Co-signed By: VIMAL Titration: 06/16/23 16:46 Dose: 5 mg/hr, 5 mls/hr Documented By: EMILY Co-signed By: Romeo Admin: 06/16/23 15:46 Dose: 5 mg/hr, 5 mls/hr Documented By: NEHEMIAS Co-signed By: ACC Piperacillin Sod/Tazobactam Sod (Zosyn) 4.5 gm in 120 mls @ 240 mls/hr IV NOW ONE Stop: 06/16/23 15:56 Last Infusion: 06/16/23 16:48 Dose: Infused Documented By: Admin: 06/16/23 16:00 Dose: 240 mls/hr Documented By: ACC Digoxin 250 mcg/ Syringe 10 mls @ 2 mls/min IV NOW STA Stop: 06/16/23 21:38 Last Admin: 06/16/23 22:53 Dose: 2 mls/min Documented By: SUSAN Hydrocortisone Sodium (Succinate 100 mg/ Syringe) 2 mls @ 4 mls/min IV ONE STA Stop: 06/16/23 21:45 Last Admin: 06/16/23 22:53 Dose: 4 mls/min Documented By: SUSAN Metoprolol Tartrate (Metoprolol Tartrate 50 Mg Tab) 50 mg PO BID NATASHA Stop: 07/16/23 20:59 Last Admin: 06/16/23 21:27 Dose: Not Given Documented By: SUSAN Miscellaneous (Stat Iv Infusion Titration Per Protocol) 1 each N/A NOW STA Stop: 06/16/23 15:17 Last Admin: 06/16/23 16:48 Dose: Not Given Documented By: ACC Critical Care Time Critical Care Time: Yes Total Critical Care Time: 58 I have personally spent greater than 58 minutes of critical care time in the direct management of this patient. This includes bedside care, interpretation of diagnostic studies, and testing, discussion with consultants, patient, and family members, and other required patient management activities. This 58 minutes is in excess of all separately billable procedures. Medical Decision Making Medical Records Attestation: I reviewed the patient's medical records. External medical records reviewed. Patient was admitted from May 09, 2023 until May 11, 2023 at this facility. Patient was initially admitted for A- fib RVR. According to discharge summary the patient has high ejection heart failure and had an echocardiogram which showed ejection fraction of 55 to 60%. Patient was started metoprolol 50 mg p.o. daily. The patient has had bilateral leg pain which appears to be related to the leg swelling. The patient was discharged with p.o. Eliquis and diagnosed with a pericardial effusion also. Laboratory Data Attestation: I reviewed the patient's lab results. 06/16/23 14:00 06/16/23 14:00 Lab Results 06/16/23 Range/Units 14:00 WBC 20.20 H (4.8-10.8) K/ul RBC 5.58 H (4.20-5.40) M/uL Hgb 17.4 H (12.0-16.0) g/dl Hct 52.1 H (37.0-47.0) % MCV 93.4 (80.0-100.0) fL MCH 31.2 (25.0-34.0) pg MCHC 33.4 (32.0-36.0) g/dL RDW Std Deviation 49.6 H (36.4-46.3) fL RDW Coeff of Alvarez 14.6 H (11.5-14.5) % Plt Count 312 (130-400) K/uL MPV 10.4 (9.4-12.4) fL Immature Gran % (Auto) 1.1 % Neut % (Auto) 89.4 % Lymph % (Auto) 4.5 % Carlisle % (Auto) 4.6 % Eos % (Auto) 0.2 % Baso % (Auto) 0.2 % Neut # (Auto) 18.05 H (1.40-6.50) K/uL Lymph # (Auto) 0.90 L (1.20-3.40) K/uL Carlisle # (Auto) 0.93 H (0.11-0.59) K/uL Eos # (Auto) 0.05 (0.00-0.50) K/uL Baso # (Auto) 0.05 (0.00-0.20) K/uL Immature Gran # (Auto) 0.22 H (0.01-0.20) K/uL Sodium 130 L (136-145) mmol/L Potassium 5.0 (3.5-5.1) mmol/L Chloride 95 L (98-107) mmol/L Carbon Dioxide 23 (21-32) mmol/L Anion Gap 12 H (3-11) BUN 69 H (6-23) mg/dl Creatinine 1.13 (0.6-1.2) mg/dl Est Cr Clr Drug Dosing Not Reportable Est GFR ( Amer) 52.4 ml/min Est GFR (Non-Af Amer) 45.2 ml/min BUN/Creatinine Ratio 61.1 H (10-20) Glucose 122 H (70-99(Fasting)) mg/dl Calcium 8.7 (8.6-10.3) mg/dl Magnesium 2.4 (1.7-2.4) mg/dl Total Bilirubin 0.9 (0.2-1.0) mg/dl AST 45 H (13-39) U/L ALT 39 (7-52) U/L Alkaline Phosphatase 85 (34-104) U/L Total Creatine Kinase 197 H (26-192) U/L Total Protein 7.3 (6.0-8.3) gm/dl Albumin 3.4 (3.4-5.0) gm/dl Globulin 3.9 (2.5-4.0) gm/dl Albumin/Globulin Ratio 0.9 (0.9-2) Lipase 21 (11-82) U/L Random Cortisol 26.01 mcg/dl Imaging Data Attestation: I personally reviewed and interpreted this imaging study as follows: My Impression: Chest x-ray negative. Airway clear. No pneumothorax. No consolidation. No cardiomegaly or cephalization.. No free air under the diaphragm. No fractures of the skeletal structures. Radiologist's Impression: Head CT 06/16/23 14:36 CT OF THE HEAD WITHOUT CONTRAST CLINICAL HISTORY: Altered mental status. COMPARISON STUDY: MRI of the brain August 10, 2011. CT DOSE: 922.39 mGy.cm TECHNIQUE: Helical axial images of the head were obtained without IV contrast. Automated exposure control was utilized for the study. A dose lowering technique was utilized adhering to the principles of ALARA. FINDINGS: No acute intracranial hemorrhage, midline shift or mass effect is present. White matter hypodensity suggests small vessel disease. The ventricular system is unremarkable. The basal cisterns are patent. No extra-axial collections are present. There are no findings to suggest acute dural sinus thrombosis or acute territorial infarct. No significant calvarial abnormalities are present. Visualized portions of the sinuses and mastoid air cells are clear. Venous gas within the cavernous sinus is related to IV. IMPRESSION: No acute intracranial findings. ACT 112: Negative or not required by law. Electronically signed by: Fredo Ingram M.D. 06/16/2023 4:27 PM Chest X-Ray 06/16/23 14:48 XR chest 1V portable CLINICAL HISTORY: weakness COMPARISON STUDY: Chest radiograph May 09, 2023. FINDINGS: There is no pneumothorax or definite pleural effusion. Apparent left basilar opacity is likely due to a rotated study. Pulmonary vascularity is normal. IMPRESSION: No definite acute findings. Apparent left basilar opacity, likely due to a rotated study. ACT 112: Negative or not required by law. Electronically signed by: Fredo Ingram M.D. 06/16/2023 4:22 PM Abdomen/Pelvis CT 06/16/23 17:01 CT abd pelvis wo con CLINICAL HISTORY: unstageable sacral pressure ulcer/cellulitis, ZUHAIR TECHNIQUE: Helical axial images of the abdomen and pelvis were obtained. Automated dose lowering techniques and/or adjustment according to patient size were utilized for this exam. This exam was performed without intravenous contrast. CT DOSE: 942.18 mGy.cm COMPARISON: None available at the time of this dictation. FINDINGS: Lower chest: No acute abnormality. Liver: Unremarkable. No focal lesions are seen. Gallbladder and biliary tree: No calcified gallstones. Normal caliber wall. No intra- or extrahepatic biliary ductal dilation. Pancreas: Unremarkable, no focal lesions. Spleen: Unremarkable. Adrenals: Unremarkable. Kidneys and ureters: Unremarkable. Bladder: Diallo catheter is seen. Reproductive organs: Unremarkable. Bowel: Diverticulosis is seen without evidence of diverticulitis. A small hiatal hernia is seen. Lymph nodes Retroperitoneal: Unremarkable. Pelvic: Unremarkable. Mesenteric: Unremarkable. Peritoneum: Normal. Vessels: Atherosclerotic calcifications are seen. Abdominal wall: Diffuse soft tissue stranding is seen. No significant sacral decubitus ulcer is seen. Bones: Degenerative changes and scoliosis are seen. IMPRESSION: No significant sacral decubitus ulcer. Soft tissue stranding in the subcutaneous tissues which may reflect cellulitis. Additional findings as above. ACT 112: Negative or not required by law. Electronically signed by: Vladimir Sharp M.D. 06/16/2023 6:39 PM ECG Data Attestation: I personally reviewed and interpreted this ECG as follows: Additional Comments: EKG #1 at 1458: Atrial fibrillation with rate of 167. QRS [address] elevation or ST depression. EKG #2 at 1512 status post Cardizem 15 mg IV bolus: Atrial fibrillation with a rate of 122. QRS [address] elevation or ST depression. PVCs present. [facility] Narrative 1445: The patient was evaluated in room C9. A complete history and physical exam was performed Cardiac monitoring: An order was placed for continuous cardiac monitoring. The monitor shows a rate of 140-170 with atrial fibrilation rhythm interpreted by me Patient was seen during a time of extreme volume and extreme acuity in the emergency department. Nursing triage protocols were initiated and labs were drawn by protocol in the triage area. Labs showed a leukocytosis of 20. Patient does have a history of atrial fibrillation. Patient is afebrile. Atrial fibrillation with RVR could be secondary to sepsis. Sepsis labs will be added to the blood work that was sent down including lactic acid and cultures. IV fluid bolus ordered for the patient 30 cc/kg. Cardizem bolus ordered for the patient which improved the patient's ventricular rate to 100-120. Empiric antibiotics will be started vancomycin for decubitus ulcer and cellulitis. 1530: Patient's blood pressure is stable and her heart rate is improved with the Cardizem bolus but her heart rate is now increasing again into the 1 20-130 ventricular rate area with atrial fibrillation. Lactic acid is elevated. Zosyn ordered for antibiotics. Patient be started on Cardizem drip. 1630: Vital signs stable on Cardizem drip. Labs show leukocytosis of 20.2 hemoglobin 17.4 Lactic acid 2.7. Chest x-ray and CT of the head within normal limits. Patient will be admitted to the [facility] team Dr. Joellen fitzgerald. Impression & Plan Sepsis, Sacral decubitus ulcer, Cellulitis, Atrial fibrillation with RVR Discharge Plan Visit Data Chief Complaint: Illness Stated Complaint: REFERRED BY [facility] FOR EVAL ED Provider: Pedro Rosenberg Discharge Problem: Sepsis, Sacral decubitus ulcer, Cellulitis, Atrial fibrillation with RVR Patient Disposition: Admitted As Inpatient Discharge Instructions Interventions: ED Discharge Assessment Last Done: 06/16/23 18:33 Discharge Problem: Sepsis Qualifiers: Sepsis type: sepsis due to unspecified organism Sepsis acute organ dysfunction status: with acute organ dysfunction Severe sepsis acute organ dysfunction type: unspecified Severe sepsis shock status: without septic shock Qualified Code(s): A41.9 - Sepsis, unspecified organism; R65.20 - Severe sepsis without septic shock Cellulitis Qualifiers: Site of cellulitis: unspecified site Qualified Code(s): L03.90 - Cellulitis, unspecified
[2023-06-17] MEDS: DIGOXIN 250 MCG in SYRINGE 9 ML IV ONE ×2 (04:32→18:48)
[2023-06-17] MEDS: HYDROCORTISONE SOD 50 MG in SYRINGE 0 ML IV SCH (04:32)
[2023-06-17] MEDS: LEVOTHYROXINE SODIUM 125 MCG TABLET PO SCH (05:55)
[2023-06-17 06:51] LABS: Hematocrit (blood only) 41.5 % (37.0-47.0); Hemoglobin 14.3 g/dl (12.0-16.0); Mean Corpuscular Hemoglobin 32.2 pg (25.0-34.0); Mean Corpuscular Hgb Conc 34.5 g/dL (32.0-36.0); Mean Corpuscular Volume 93.5 fL (80.0-100.0); Mean Platelet Volume 9.8 fL (9.4-12.4); Platelet Count 255 K/uL (130-400); RDW Coefficient of Variation 14.4 % (11.5-14.5); RDW Standard Deviation 49.3 fL (36.4-46.3); Red Blood Count 4.44 M/uL (4.20-5.40); White Blood Count 15.09 K/ul (4.8-10.8)
[2023-06-17] MEDS: SODIUM CHLORIDE 0.9% 1,000 ML IV SCH (07:30)
[2023-06-17 07:35] LABS: Albumin Level 2.5 gm/dl (3.4-5.0); BUN Creatinine Ratio 70.8 (10-20); Bilirubin,Total 0.8 mg/dl (0.2-1.0); Calcium 7.9 mg/dl (8.6-10.3); Est GFR (African American) 105.9 ml/min; Est GFR (Non-African American) 91.4 ml/min; Globulin 2.6 gm/dl (2.5-4.0); Potassium 4.3 mmol/L (3.5-5.1); Total Protein 5.1 gm/dl (6.0-8.3)
[2023-06-17 07:42] LABS: Basophils # (auto) 0.03 K/uL (0.00-0.20); Basophils % (auto) 0.2 %; Echinocytes 1+; Immature Granulocytes % (auto) 0.7 %; Lymphocytes % (auto) 2.7 %; Monocytes # (auto) 0.19 K/uL (0.11-0.59); Monocytes % (auto) 1.3 %; Neutrophils # (auto) 14.37 K/uL (1.40-6.50); Neutrophils % (auto) 95.1 %
[2023-06-17 07:46] LABS: INR 1.2 (0.9-1.1); Partial Thromboplastin Ratio 1.1; Partial Thromboplastin Time 30 Seconds (21-31); Prothrombin Time 12.6 Seconds (9.0-12.0)
[2023-06-17] MEDS: PANTOprazole 40 MG TAB PO SCH (08:03)
[2023-06-17] MEDS: METOPROLOL TARTRATE 25 MG TAB PO SCH (08:03)
[2023-06-17] MEDS ORDERED: MICONAZOLE NITRATE POWDER 85 GM EXT PRN (08:22)
--- NOTE | 2023-06-17 08:30 | Hospitalist Progress Note ---
Date of Service June 17, 2023 Assessment & Plan (1) Sepsis: Plan: Source - unstageable pressure sacral ulcer with surrounding cellulitis Empiric antibiotics with Zosyn and daptomycin Follow up blood and urine cultures currently negative to date (2) Sacral decubitus ulcer: Plan: Unstageable with surrounding cellulitis CT abdomen/pelvis without IV contrast ordered to rule out obstructive uropathy in addition to underlying abscess - no underlying abscess seen, no commnets of osteomyelitis Antibiotics as above Consult surgery eliquis as outpt delays time for debridement With significant missed Toenails podiatry consult is ordered to address these (3) Hematuria: Plan: Cover for UTI with Zosyn and daptomycin, Ct comments normal kidneys and bladder urine current culture currently negative on 06/17/2023 Hold Eliquis Diallo catheter appropriately placed for sepsis in the emergency room (4) ZUHAIR (acute kidney injury): Plan: seem to be intravascular dry with peripheral edema from 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 HFPEF No post obstructive cause on CT Lactate 2.7 with repeat pending, 2L NSS bolus ordered -bicarb and anion gap are normal on 06/17 (5) Atrial fibrillation with RVR: Plan: Diagnosed in April 2023 with a suspects it has been going on for much longer Eliquis on hold due to hematuria and possibly needing surgery as above Low blood pressure from diltiazem gtt, stopped but did have rate control, restart metoprolol at lower dose and follow with dosing as what BP allows Additional digoxin 250 mcg given in the evening on 06/17 with level in the morning and starting on 1.25 mg at 1600 daily (6) Pericardial effusion: Plan: Noted during her previous admission. Limited TTE ordered to reassess this (7) (HFpEF) heart failure with preserved ejection fraction: Plan: Clinically dry as explained above on admission Hold Lasix Monitor for worsening shortness of breath/hypoxia (8) Hyponatremia: Plan: At baseline sodium 130. Hypovolemic. ?secondary to lasix Monitor following normal saline bolus with BMP in a.m. (9) Bilateral leg pain: Plan: Suspect due to leg swelling which is out of portion to overall volume status due to tricuspid regurgitation and immobility. This was a major complaint in April in addition with no venous thromboembolism seen on ultrasound Doppler at that time (10) Current chronic use of systemic steroids: Plan: Unclear if she is taking hydrocortisone or reasons for this but still listed as PRN on her medication list Not represcribed since February Random cortisol level appropriate (11) Hypothyroidism: Plan: TSH pending Continue levothyroxine 125 mcg p.o. daily Plan VTE prophylaxis - unable to tolerate SCDs due to bilateral leg pain, anticoagul ation on hold due to hematuria and possible need for surgery Diet - low-sodium Admission and Anticipated Discharge Date Admission Date: June 16, 2023 Subjective Patient is pleasant confused at times she is no focal complaints or problems seems to be evasive about her bedsores does admit to being nonambulatory for period of time has not had any foot care also for that period of time. She remains in A-fib rapid ventricular response despite having a partial load of di goxin. Her blood pressure is slightly low preventing aggressive use of rate controlling agents Physical Exam Physical Exam: Awake oriented x 2 Cardiac exam is tachycardic and irregularly irregular Lungs are clear with decreased breath sounds at the bases Abdomen NABS and soft I did not receive the wounds in the room but did review the photographs from the wound images from our wound care nursing team I did evaluate her feet she has extremely long great toenails sometimes to the point where there causing calluses on the next-door neighbor second toe Results & Data Results & Data Vital Signs (Past 12 Hours) Vital Signs Temp Pulse Pulse Resp BP BP Pulse Ox 06/17/23 07:24 97.2 F L 93 H 18 111/67 94 06/17/23 04:32 145 H 06/17/23 03:00 97.5 F L 113 H 18 121/72 93 06/17/23 00:39 136 H 117/68 06/16/23 22:53 138 H 06/16/23 22:20 97.7 F 149 H 18 92/51 L 93 06/16/23 21:22 138 H 109/58 L 06/16/23 20:56 82/45 L O2 Del Method 06/17/23 07:24 Room Air 06/17/23 04:32 06/17/23 03:00 Room Air 06/17/23 00:39 06/16/23 22:53 06/16/23 22:20 Room Air 06/16/23 21:22 06/16/23 20:56 Laboratory Results Reviewed CBC Reviewed chemistry Mild to moderate protein malnutrition noted by decreased protein and albumin PG Care Time/CCT Total # of Minutes Spent Total Time Spent with Patient: Total time spent is greater than 50% in coordination of care (as documented) at patient's floor/unit and/or counseling patient: Coding Level of Care Code 41967 SUB INP/OBS CARE 3/50MIN Diagnoses Sepsis A41.9; R65.20 Sepsis acute organ dysfunction status: with acute organ dysfunction Sepsis type: sepsis due to unspecified organism Severe sepsis acute organ dysfunction type: unspecified Severe sepsis shock status: without septic shock Sacral decubitus ulcer L89.159 Hematuria R31.9 ZUHAIR (acute kidney injury) N17.9 Atrial fibrillation with RVR I48.91 Pericardial effusion I31.39 (HFpEF) heart failure with preserved ejection fraction I50.30 Hyponatremia E87.1 Bilateral leg pain M79.604; M79.605 Current chronic use of systemic steroids Z79.52 Hypothyroidism E03.9 (1) Sepsis Sepsis acute organ dysfunction status: with acute organ dysfunction Sepsis type: sepsis due to unspecified organism Severe sepsis acute organ dysfunction type: unspecified Severe sepsis shock status: without septic shock Qualified Code(s): A41.9 - Sepsis, unspecified organism; R65.20 - Severe sepsis without septic shock
[2023-06-17] MEDS: HYDROmorphone INJ 0.5 MG/0.5 ML SYR IV PRN (08:52)
--- NOTE | 2023-06-17 17:18 | Electrocardiogram Report ---
Test Reason : Blood Pressure : / mmHG Vent. Rate : 136 BPM Atrial Rate : 000 BPM P-R Int : 000 ms QRS Dur : 066 ms QT Int : 298 ms P-R-T Axes : 000 066 -08 degrees QTc Int : 448 ms Atrial fibrillation with rapid ventricular response Low voltage QRS Nonspecific ST abnormality Abnormal ECG When compared with ECG of 16-JUN-2023 15:12, (unconfirmed) ST no longer elevated in Inferior leads ST less depressed in Lateral leads Nonspecific T wave abnormality, improved in Lateral leads Confirmed by Yrn Black ([id number]) on 06/17/2023 5:17:43 PM Referred By: REFERRED SELF Confirmed By:Bruce Black
--- NOTE | 2023-06-17 17:29 | Electrocardiogram Report ---
Test Reason : Blood Pressure : / mmHG Vent. Rate : 131 BPM Atrial Rate : 312 BPM P-R Int : 000 ms QRS Dur : 074 ms QT Int : 302 ms P-R-T Axes : 000 089 257 degrees QTc Int : 445 ms Atrial fibrillation with rapid ventricular response Anterolateral infarct (cited on or before 09-MAY-2023) Nonspecific ST abnormality Abnormal ECG When compared with ECG of 16-JUN-2023 15:13, (unconfirmed) Nonspecific T wave abnormality, worse in Lateral leads Confirmed by Yrn Black ([id number] on 06/17/2023 5:29:13 PM Referred By: REFERRED SELF Confirmed By:Bruce Black
[2023-06-17] MEDS ORDERED: METOPROLOL TARTRATE 1 MG/ML VIAL IV PRN (18:36)
--- NOTE | 2023-06-17 19:39 | Hospitalist Progress Note ---
Date of Service June 17, 2023 Assessment & Plan (1) Sepsis: Plan: Source - unstageable pressure sacral ulcer with surrounding cellulitis Empiric antibiotics with Zosyn and daptomycin Follow up blood and urine cultures currently negative to date (2) Sacral decubitus ulcer: Plan: Unstageable with surrounding cellulitis CT abdomen/pelvis without IV contrast ordered to rule out obstructive uropathy in addition to underlying abscess - no underlying abscess seen, no commnets of osteomyelitis Antibiotics as above Consult surgery eliquis as outpt delays time for debridement With significant missed Toenails podiatry consult is ordered to address these (3) Hematuria: Plan: Cover for UTI with Zosyn and daptomycin, Ct comments normal kidneys and bladder urine current culture currently negative on 06/17/2023 Hold Eliquis Diallo catheter appropriately placed for sepsis in the emergency room (4) ZUHAIR (acute kidney injury): Plan: seem to be intravascular dry with peripheral edema from 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 HFPEF No post obstructive cause on CT Lactate 2.7 with repeat pending, 2L NSS bolus ordered -bicarb and anion gap are normal on 06/17 (5) Atrial fibrillation with RVR: Plan: Diagnosed in April 2023 with a suspects it has been going on for much longer Eliquis on hold due to hematuria and possibly needing surgery as above Low blood pressure from diltiazem gtt, stopped but did have rate control, restart metoprolol at lower dose and follow with dosing as what BP allows Additional digoxin 250 mcg given in the evening on 06/17 with level in the morning and starting on 1.25 mg at 1600 daily (6) Pericardial effusion: Plan: Noted during her previous admission. Limited TTE ordered to reassess this (7) (HFpEF) heart failure with preserved ejection fraction: Plan: Clinically dry as explained above on admission Hold Lasix Monitor for worsening shortness of breath/hypoxia (8) Hyponatremia: Plan: At baseline sodium 130. Hypovolemic. ?secondary to lasix Monitor following normal saline bolus with BMP in a.m. (9) Bilateral leg pain: Plan: Suspect due to leg swelling which is out of portion to overall volume status due to tricuspid regurgitation and immobility. This was a major complaint in April in addition with no venous thromboembolism seen on ultrasound Doppler at that time (10) Current chronic use of systemic steroids: Plan: Unclear if she is taking hydrocortisone or reasons for this but still listed as PRN on her medication list Not represcribed since February Random cortisol level appropriate (11) Hypothyroidism: Plan: TSH pending Continue levothyroxine 125 mcg p.o. daily Plan VTE prophylaxis - unable to tolerate SCDs due to bilateral leg pain, anticoagul ation on hold due to hematuria and possible need for surgery Diet - low-sodium 1.) Pressure ulcer of sacral region, at least stage 3 2.) Metabolic encephalopathy Admission and Anticipated Discharge Date Admission Date: June 16, 2023 Results & Data Results & Data Vital Signs (Past 12 Hours) Vital Signs Temp Pulse Pulse Resp BP BP Pulse Ox 06/17/23 19:30 97.7 F 116 H 20 105/57 L 93 06/17/23 18:48 120 H 06/17/23 15:45 97.2 F L 117 H 17 117/57 L 94 06/17/23 10:19 97.3 F L 109 H 17 99/56 L 94 06/17/23 08:00 O2 Del Method 06/17/23 19:30 Room Air 06/17/23 18:48 06/17/23 15:45 Room Air 06/17/23 10:19 Room Air 06/17/23 08:00 Room Air PG Care Time/CCT Total # of Minutes Spent Total Time Spent with Patient: Total time spent is greater than 50% in coordination of care (as documented) at patient's floor/unit and/or counseling patient: Coding Level of Care Code None Diagnoses Sepsis A41.9; R65.20 Sepsis type: sepsis due to unspecified organism Sepsis acute organ dysfunction status: with acute organ dysfunction Severe sepsis acute organ dysfunction type: unspecified Severe sepsis shock status: without septic shock Sacral decubitus ulcer L89.159 Hematuria R31.9 ZUHAIR (acute kidney injury) N17.9 Atrial fibrillation with RVR I48.91 Pericardial effusion I31.39 (HFpEF) heart failure with preserved ejection fraction I50.30 Hyponatremia E87.1 Bilateral leg pain M79.604; M79.605 Current chronic use of systemic steroids Z79.52 Hypothyroidism E03.9 (1) Sepsis Sepsis type: sepsis due to unspecified organism Sepsis acute organ dysfunction status: with acute organ dysfunction Severe sepsis acute organ dysfunction type: unspecified Severe sepsis shock status: without septic shock Qualified Code(s): A41.9 - Sepsis, unspecified organism; R65.20 - Severe sepsis without septic shock
[2023-06-17] MEDS: MELATONIN 3 MG TAB PO PRN (21:24)
[2023-06-18 08:01] LABS: BUN Creatinine Ratio 61.5 (10-20); Calcium 7.9 mg/dl (8.6-10.3); Creatinine Clr Calc Pharmacy 89.8 ml/min; Est GFR (African American) 113.4 ml/min; Est GFR (Non-African American) 97.8 ml/min; Potassium 4.1 mmol/L (3.5-5.1)
[2023-06-18 08:16] LABS: Thyroid Stimulating Hormone 3.435 uIu/ml (0.300-4.500)
--- NOTE | 2023-06-18 12:28 | XCELERA ---
[id number]
[2023-06-18] MEDS: DIGOXIN 125 MCG in SYRINGE 9.5 ML IV SCH (15:54)
[2023-06-18] MEDS: METOPROLOL TARTRATE 25 MG TAB PO SCH (16:54)
[2023-06-18] MEDS: HYDROmorphone INJ 1 MG/ML SYRINGE IV PRN (18:48)
--- NOTE | 2023-06-18 22:46 | Hospitalist Progress Note ---
Date of Service June 18, 2023 Assessment & Plan (1) Sepsis: Plan: Source - unstageable pressure sacral ulcer with surrounding cellulitis Empiric antibiotics with Zosyn and daptomycin Follow up blood and urine cultures currently negative to date Debridement scheduled for 06/21 (2) Sacral decubitus ulcer: Plan: Unstageable with surrounding cellulitis CT abdomen/pelvis without IV contrast ordered to rule out obstructive uropathy in addition to underlying abscess - no underlying abscess seen, no commnets of osteomyelitis Antibiotics as above Consult surgery eliquis as outpt delays time for debridement With significant missed Toenails podiatry consult is ordered to address these (3) Hematuria: Plan: Cover for UTI with Zosyn and daptomycin, Ct comments normal kidneys and bladder urine current culture currently negative on 06/17/2023 Hold Eliquis Diallo catheter appropriately placed for sepsis in the emergency room (4) ZUHAIR (acute kidney injury): Plan: seem to be intravascular dry with peripheral edema from 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 HFPEF No post obstructive cause on CT Lactate 2.7 with repeat pending, 2L NSS bolus ordered -bicarb and anion gap are normal on 06/17 (5) Atrial fibrillation with RVR: Plan: Diagnosed in April 2023 with a suspects it has been going on for much longer Eliquis on hold due to hematuria and possibly needing surgery as above Low blood pressure from diltiazem gtt, stopped but did have rate control, restart metoprolol at lower dose and follow with dosing as what BP allows Additional digoxin 250 mcg given in the evening on 06/17 with level in the morning and starting on 1.25 mg at 1600 daily (6) Pericardial effusion: Plan: Noted during her previous admission. Limited TTE ordered to reassess this (7) (HFpEF) heart failure with preserved ejection fraction: Plan: Clinically dry as explained above on admission Hold Lasix Monitor for worsening shortness of breath/hypoxia (8) Hyponatremia: Plan: At baseline sodium 130. Hypovolemic. ?secondary to lasix Monitor following normal saline bolus with BMP in a.m. (9) Bilateral leg pain: Plan: Suspect due to leg swelling which is out of portion to overall volume status due to tricuspid regurgitation and immobility. This was a major complaint in April in addition with no venous thromb oembolism seen on ultrasound Doppler at that time (10) Current chronic use of systemic steroids: Plan: Unclear if she is taking hydrocortisone or reasons for this but still listed as PRN on her medication list Not represcribed since February Random cortisol level appropriate (11) Hypothyroidism: Plan: TSH pending Continue levothyroxine 125 mcg p.o. daily Plan VTE prophylaxis - unable to tolerate SCDs due to bilateral leg pain, anticoagulation on hold due to hematuria and possible need for surgery Diet - low-sodium 1.) Pressure ulcer of sacral region, at least stage 3 2.) Metabolic encephalopathy Admission and Anticipated Discharge Date Admission Date: June 16, 2023 Subjective Patient reports no new symptoms. Review of Systems Review of Systems: All systems reviewed & are unremarkable except as noted in HPI & below Physical Exam Physical Exam: Awake oriented x 2 Cardiac exam is tachycardic and irregularly irregular Lungs are clear with decreased breath sounds at the bases Abdomen NABS and soft Results & Data Results & Data Vital Signs (Past 12 Hours) Vital Signs Temp Pulse Pulse Resp BP BP Pulse Ox 06/18/23 19:30 36.5 C 103 H 20 112/73 92 06/18/23 18:00 06/18/23 16:31 116 H 06/18/23 15:54 104 H 06/18/23 15:18 36.9 C 113 H 18 120/74 94 06/18/23 11:46 36.4 C L 108 H 16 117/67 94 Pulse Ox O2 Del Method O2 Del Method 06/18/23 19:30 Room Air 06/18/23 18:00 97 Room Air 06/18/23 16:31 06/18/23 15:54 06/18/23 15:18 Room Air 06/18/23 11:46 Room Air PG Care Time/CCT Total # of Minutes Spent Total Time Spent with Patient: Total time spent is greater than 50% in coordination of care (as documented) at patient's floor/unit and/or counseling patient: Coding Level of Care Code 78132 SUB INP/OBS CARE 2/35MIN Diagnoses Sepsis A41.9; R65.20 Sepsis acute organ dysfunction status: with acute organ dysfunction Sepsis type: sepsis due to unspecified organism Severe sepsis acute organ dysfunction type: unspecified Severe sepsis shock status: without septic shock Sacral decubitus ulcer L89.159 Hematuria R31.9 ZUHAIR (acute kidney injury) N17.9 Atrial fibrillation with RVR I48.91 Pericardial effusion I31.39 (HFpEF) heart failure with preserved ejection fraction I50.30 Hyponatremia E87.1 Bilateral leg pain M79.604; M79.605 Current chronic use of systemic steroids Z79.52 Hypothyroidism E03.9 (1) Sepsis Sepsis acute organ dysfunction status: with acute organ dysfunction Sepsis type: sepsis due to unspecified organism Severe sepsis acute organ dysfunction type: unspecified Severe sepsis shock status: without septic shock Qualified Code(s): A41.9 - Sepsis, unspecified organism; R65.20 - Severe sepsis without septic shock
[2023-06-19 06:34] LABS: Hemoglobin 13.6 g/dl (12.0-16.0); Mean Corpuscular Volume 94.1 fL (80.0-100.0); Mean Platelet Volume 9.5 fL (9.4-12.4); Platelet Count 279 K/uL (130-400); RDW Coefficient of Variation 14.4 % (11.5-14.5); RDW Standard Deviation 49.8 fL (36.4-46.3); Red Blood Count 4.25 M/uL (4.20-5.40); White Blood Count 12.52 K/ul (4.8-10.8)
[2023-06-19 07:05] LABS: BUN Creatinine Ratio 61.1 (10-20); C Reactive Protein 2.82 mg/dl (0-0.5); Calcium 8.2 mg/dl (8.6-10.3); Creatinine Clr Calc Pharmacy 97.6 ml/min; Est GFR (African American) 116.4 ml/min; Est GFR (Non-African American) 100.4 ml/min; Magnesium 1.9 mg/dl (1.7-2.4); Potassium 4.5 mmol/L (3.5-5.1)
--- NOTE | 2023-06-19 22:59 | Hospitalist Progress Note ---
Date of Service June 19, 2023 Assessment & Plan (1) Sepsis: Plan: Source - unstageable pressure sacral ulcer with surrounding cellulitis Empiric antibiotics with Zosyn and daptomycin Follow up blood and urine cultures currently negative to date Debridement scheduled for 06/21 (2) Sacral decubitus ulcer: Plan: Unstageable with surrounding cellulitis CT abdomen/pelvis without IV contrast ordered to rule out obstructive uropathy in addition to underlying abscess - no underlying abscess seen, no commnets of osteomyelitis Antibiotics as above Consult surgery eliquis as outpt delays time for debridement With significant missed Toenails podiatry consult is ordered to address these (3) Hematuria: Plan: Cover for UTI with Zosyn and daptomycin, Ct comments normal kidneys and bladder urine current culture currently negative on 06/17/2023 Hold Eliquis Diallo catheter appropriately placed for sepsis in the emergency room (4) ZUHAIR (acute kidney injury): Plan: seem to be intravascular dry with peripheral edema from 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 Limited TTE ordered to reassess this (7) (HFpEF) heart failure with preserved ejection fraction: Plan: Clinically dry as explained above on admission Hold Lasix Monitor for worsening shortness of breath/hypoxia (8) Hyponatremia: Plan: At baseline sodium 130. Hypovolemic. ?secondary to lasix Monitor following normal saline bolus with BMP in a.m. (9) Bilateral leg pain: Plan: Suspect due to leg swelling which is out of portion to overall volume status due to tricuspid regurgitation and immobility. This was a major complaint in April in addition with no venous thromboembolism seen on ultrasound Doppler at that time (10) Current chronic use of systemic steroids: Plan: Unclear if she is taking hydrocortisone or reasons for this but still listed as PRN on her medication list Not represcribed since February Random cortisol level appropriate (11) Hypothyroidism: Plan: TSH pending Continue levothyroxine 125 mcg p.o. daily Plan VTE prophylaxis - unable to tolerate SCDs due to bilateral leg pain, anticoagulation on hold due to hematuria and possible need for surgery Diet - low-sodium 1.) Pressure ulcer of sacral region, at least stage 3 2.) Metabolic encephalopathy Admission and Anticipated Discharge Date Admission Date: June 16, 2023 Subjective 83 yo female reports no new symptoms. Review of Systems Review of Systems: All systems reviewed & are unremarkable except as noted in HPI & below Physical Exam Physical Exam: Awake oriented x 2 Cardiac exam is tachycardic and irregularly irregular Lungs are clear with decreased breath sounds at the bases Abdomen NABS and soft Results & Data Results & Data Vital Signs (Past 12 Hours) Vital Signs Temp Pulse Pulse Resp BP Pulse Ox Pulse Ox 06/19/23 20:00 06/19/23 19:18 36.3 C L 88 18 134/86 93 06/19/23 18:34 99 H 06/19/23 18:00 94 06/19/23 16:04 36.3 C L 89 18 129/78 93 06/19/23 15:07 100 H 06/19/23 15:02 100 H 114/73 06/19/23 11:23 36.4 C L 98 H 18 109/67 94 O2 Del Method O2 Del Method O2 Flow Rate O2 Flow Rate 06/19/23 20:00 Room Air 0 06/19/23 19:18 Room Air 06/19/23 18:34 06/19/23 18:00 Room Air 0 06/19/23 16:04 Room Air 06/19/23 15:07 06/19/23 15:02 06/19/23 11:23 Room Air PG Care Time/CCT Total # of Minutes Spent Total Time Spent with Patient: Total time spent is greater than 50% in coordination of care (as documented) at patient's floor/unit and/or counseling patient: Coding Level of Care Code 43631 SUB INP/OBS CARE 2/35MIN Diagnoses Sepsis A41.9; R65.20 Sepsis type: sepsis due to unspecified organism Sepsis acute organ dysfunction status: with acute organ dysfunction Severe sepsis acute organ dysfunction type: unspecified Severe sepsis shock status: without septic shock Sacral decubitus ulcer L89.159 Hematuria R31.9 ZUHAIR (acute kidney injury) N17.9 Atrial fibrillation with RVR I48.91 Pericardial effusion I31.39 (HFpEF) heart failure with preserved ejection fraction I50.30 Hyponatremia E87.1 Bilateral leg pain M79.604; M79.605 Current chronic use of systemic steroids Z79.52 Hypothyroidism E03.9 (1) Sepsis Sepsis type: sepsis due to unspecified organism Sepsis acute organ dysfunction status: with acute organ dysfunction Severe sepsis acute organ dysfunction type: unspecified Severe sepsis shock status: without septic shock Qualified Code(s): A41.9 - Sepsis, unspecified organism; R65.20 - Severe sepsis without septic shock
[2023-06-20 08:01] LABS: Hematocrit (blood only) 44.8 % (37.0-47.0); Hemoglobin 14.6 g/dl (12.0-16.0); Mean Corpuscular Hemoglobin 31.3 pg (25.0-34.0); Mean Corpuscular Hgb Conc 32.6 g/dL (32.0-36.0); Mean Corpuscular Volume 95.9 fL (80.0-100.0); Mean Platelet Volume 9.4 fL (9.4-12.4); Platelet Count 315 K/uL (130-400); RDW Coefficient of Variation 14.3 % (11.5-14.5); RDW Standard Deviation 50.6 fL (36.4-46.3); Red Blood Count 4.67 M/uL (4.20-5.40); White Blood Count 11.61 K/ul (4.8-10.8)
[2023-06-20 08:17] LABS: BUN Creatinine Ratio 64.5 (10-20); Calcium 8.3 mg/dl (8.6-10.3); Creatinine Clr Calc Pharmacy 113.3 ml/min; Est GFR (African American) 122.3 ml/min; Est GFR (Non-African American) 105.5 ml/min; Potassium 4.3 mmol/L (3.5-5.1)
--- NOTE | 2023-06-20 11:15 | Surgery Progress Note ---
Date of Service June 20, 2023 Assessment & Plan (1) Sacral decubitus ulcer: Plan: Pt here with sacral decubitus ulcer Suhas has been on hold sacral ulcer was examined last wk with surgeon in attendance we will make pt npo at midnight and plan for I&D of ulcer in the OR tomorrow Admission and Anticipated Discharge Date Admission Date: June 16, 2023 Supervising Physician Co-Signing Physician Notes I personally saw and evaluated the patient with Serina Duarte PA-C and agree with the assessment and plan. Will plan on operative debridement tomorrow Please keep NPO after MN Subjective Patient with no complaints this AM. reviewed plans for surgery tomorrow, no questions at this time. Physical Exam Physical Exam: awake Results & Data Vital Signs (Past 12 Hours) Vital Signs Temp Pulse Resp BP Pulse Ox O2 Del Method 06/20/23 07:43 36.5 C 126 H 20 158/81 H 95 Room Air 06/20/23 02:23 36.4 C L 89 16 125/74 94 Room Air 06/19/23 23:30 36.3 C L 87 18 133/73 93 Room Air PG Care Time/CCT Total # of Minutes Spent Total Time Spent with Patient: Total time spent is greater than 50% in coordination of care (as documented) at patient's floor/unit and/or counseling patient: Coding Level of Care Code 30271 SUB INP/OBS CARE 06/16MIN Diagnoses Sacral decubitus ulcer L89.159
--- NOTE | 2023-06-20 22:26 | Hospitalist Progress Note ---
Date of Service June 20, 2023 Assessment & Plan (1) Sepsis: Plan: Source - unstageable pressure sacral ulcer with surrounding cellulitis Empiric antibiotics with Zosyn and daptomycin Follow up blood and urine cultures currently negative to date Debridement scheduled for 06/21 reviewed blood work. (2) Sacral decubitus ulcer: Plan: Unstageable with surrounding cellulitis CT abdomen/pelvis without IV contrast ordered to rule out obstructive uropathy in addition to underlying abscess - no underlying abscess seen, no commnets of osteomyelitis Antibiotics as above Consult surgery eliquis as outpt delays time for debridement With significant missed Toenails podiatry consult is ordered to address these (3) Hematuria: Plan: Cover for UTI with Zosyn and daptomycin, Ct comments normal kidneys and bladder urine current culture currently negative on 06/17/2023 Hold Eliquis Diallo catheter appropriately placed for sepsis in the emergency room (4) ZUHAIR (acute kidney injury): Plan: seem to be intravascular dry with peripheral edema from 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 Limited TTE ordered to reassess this (7) (HFpEF) heart failure with preserved ejection fraction: Plan: Clinically dry as explained above on admission Hold Lasix Monitor for worsening shortness of breath/hypoxia (8) Hyponatremia: Plan: At baseline sodium 130. Hypovolemic. ?secondary to lasix Monitor following normal saline bolus with BMP in a.m. (9) Bilateral leg pain: Plan: Suspect due to leg swelling which is out of portion to overall volume status due to tricuspid regurgitation and immobility. This was a major complaint in April in addition with no venous thromboembolism seen on ultrasound Doppler at that time (10) Current chronic use of systemic steroids: Plan: Unclear if she is taking hydrocortisone or reasons for this but still listed as PRN on her medication list Not represcribed since February Random cortisol level appropriate (11) Hypothyroidism: Plan: TSH pending Continue levothyroxine 125 mcg p.o. daily Plan VTE prophylaxis - unable to tolerate SCDs due to bilateral leg pain, anticoagulation on hold due to hematuria and possible need for surgery Diet - low-sodium 1.) Pressure ulcer of sacral region, at least stage 3 2.) Metabolic encephalopathy Admission and Anticipated Discharge Date Admission Date: June 16, 2023 Subjective Patient reports no new symptoms. Review of Systems Review of Systems: All systems reviewed & are unremarkable except as noted in HPI & below Physical Exam Physical Exam: Awake oriented x 2 Cardiac exam is tachycardic and irregularly irregular Lungs are clear with decreased breath sounds at the bases Abdomen NABS and soft Results & Data Results & Data Vital Signs (Past 12 Hours) Vital Signs Temp Pulse Pulse Resp BP BP Pulse Ox 06/20/23 19:15 36.4 C L 94 H 18 125/71 92 06/20/23 18:00 06/20/23 17:33 118 H 06/20/23 16:37 98 H 06/20/23 14:47 36.8 C 119 H 17 125/83 93 06/20/23 12:00 36.1 C L 87 18 117/72 94 O2 Del Method O2 Del Method 06/20/23 19:15 Room Air 06/20/23 18:00 Nasal Cannula 06/20/23 17:33 06/20/23 16:37 06/20/23 14:47 Room Air 06/20/23 12:00 Room Air PG Care Time/CCT Total # of Minutes Spent Total Time Spent with Patient: Total time spent is greater than 50% in coordination of care (as documented) at patient's floor/unit and/or counseling patient: Coding Level of Care Code 85300 SUB INP/OBS CARE 2/35MIN Diagnoses Sepsis A41.9; R65.20 Sepsis acute organ dysfunction status: with acute organ dysfunction Sepsis type: sepsis due to unspecified organism Severe sepsis acute organ dysfunction type: unspecified Severe sepsis shock status: without septic shock Sacral decubitus ulcer L89.159 Hematuria R31.9 ZUHAIR (acute kidney injury) N17.9 Atrial fibrillation with RVR I48.91 Pericardial effusion I31.39 (HFpEF) heart failure with preserved ejection fraction I50.30 Hyponatremia E87.1 Bilateral leg pain M79.604; M79.605 Current chronic use of systemic steroids Z79.52 Hypothyroidism E03.9 (1) Sepsis Sepsis acute organ dysfunction status: with acute organ dysfunction Sepsis type: sepsis due to unspecified organism Severe sepsis acute organ dysfunction type: unspecified Severe sepsis shock status: without septic shock Qualified Code(s): A41.9 - Sepsis, unspecified organism; R65.20 - Severe sepsis without septic shock
[2023-06-21 07:20] LABS: Hematocrit (blood only) 45.6 % (37.0-47.0); Hemoglobin 15.1 g/dl (12.0-16.0); Mean Corpuscular Hemoglobin 31.6 pg (25.0-34.0); Mean Corpuscular Hgb Conc 33.1 g/dL (32.0-36.0); Mean Corpuscular Volume 95.4 fL (80.0-100.0); Mean Platelet Volume 9.3 fL (9.4-12.4); Platelet Count 353 K/uL (130-400); RDW Coefficient of Variation 14.5 % (11.5-14.5); RDW Standard Deviation 49.5 fL (36.4-46.3); Red Blood Count 4.78 M/uL (4.20-5.40); White Blood Count 11.45 K/ul (4.8-10.8)
[2023-06-21 07:38] LABS: BUN Creatinine Ratio 56.8 (10-20); Creatinine Clr Calc Pharmacy 84.2 ml/min; Est GFR (African American) 115.3 ml/min; Est GFR (Non-African American) 99.5 ml/min; Potassium 4.1 mmol/L (3.5-5.1)
[2023-06-21] MEDS: LACTATED RINGER'S 1,000 ML IV SCH (12:27)
[2023-06-21] MEDS ORDERED: ATROPINE SULFATE 0.1 MG/ML 10ML SYR IV PRN (12:28)
[2023-06-21] MEDS ORDERED: fentaNYL citrate PF 100 MCG/2 ML VIAL IV PRN (12:28)
[2023-06-21] MEDS ORDERED: ePHEDrine sulfate 50 MG/ML AMP IV PRN (12:28)
[2023-06-21] MEDS ORDERED: ONDANSETRON INJ 2 MG/ML 2 ML VIAL IV PRN (12:28)
--- NOTE | 2023-06-21 12:28 | Anesthesiology Consultation ---
Date of Service June 21, 2023 Assessment & Plan Chart Review Chart Review: Acceptable Risk for Surgery and Patient NOT seen in Pre Admission Testing Consults Requested none ASA ASA4 Proposed Anesthesia Anesthesia Type: General Risk / Benefits Reviewed With: PT / POA / Parent / Guardian, Accepts Plan and Informed Consent Obtained History Surgery Operation Date: 06/21/23 12:30 Proposed Procedures p Excisional Debridement Sacral Decubitus Ulcer - Bobby Taylor, DO Height/Weight Height: 5 ft Weight: 49.158 kg Allergies Allergy/AdvReac Type Severity Reaction Status Date / Time No Known Drug Allergies Allergy Unknown Verified 06/16/23 15:24 Medications Home Medications Medication Instructions Recorded Confirmed Last Taken multivitamin 1 tab PO DAILY 11/01/18 06/16/23 Unknown polyethylene glycol 3350 17 8.5 gm PO DAILY PRN Constipation 11/01/18 06/16/23 Unknown gram/dose oral powder (Miralax) vit C 50 mg-E 15 unit-zinc cit 4.5 2 tab PO DAILY 11/01/18 06/16/23 Unknown mg-lutein 2.5 mg-zeaxan chew tablet ([employer] [facility]) trazodone 100 mg tablet 150 mg (1.5 x 100 mg) PO DAILY 06/24/22 06/16/23 Unknown #135 tabs simvastatin 5 mg tablet 5 mg PO DAILY #90 tabs 08/24/22 06/16/23 Unknown hydrocortisone 10 mg tablet 10 mg PO Q6H PRN asthma #360 tabs 12/07/22 06/16/23 Unknown omeprazole 20 mg capsule,delayed 20 mg PO DAILY #90 caps 03/25/23 06/16/23 Unknown release apixaban 5 mg tablet (Eliquis) 5 mg PO BID #180 tabs 06/13/23 06/16/23 Unknown furosemide 20 mg tablet (Lasix) 20 mg PO DAILY #90 tabs 06/13/23 06/16/23 Unknown levothyroxine 125 mcg tablet 125 mcg PO DAILYBB #90 tabs 06/13/23 06/16/23 Unknown (Synthroid) metoprolol tartrate 50 mg tablet 50 mg PO BID #180 tabs 06/13/23 06/16/23 Unknown Active Medications Generic Name Dose Route Start Last Admin Trade Name Freq PRN Reason Stop Dose Admin Acetaminophen 650 mg 06/16/23 18:54 06/17/23 05:55 Acetaminophen 325 Mg Tab PO 07/16/23 18:53 650 mg Q4H PRN Administration Pain or Fever Hydromorphone HCl 0.5 mg 06/17/23 08:23 06/20/23 04:53 Hydromorphone Inj 0.5 Mg/0.5 Ml Syr IV 07/01/23 08:22 0.5 mg Q4H PRN Administration Pain Scale 4,5,6 Hydromorphone HCl 1 mg 06/17/23 08:23 06/19/23 11:57 Hydromorphone Inj 1 Mg/Ml Syringe IV 07/01/23 08:22 1 mg Q4H PRN Administration Pain Scale 6,7,8,9,10 Daptomycin 275 mg/ Syringe 5.5 mls @ 2.75 mls/min 06/16/23 19:00 06/20/23 19:21 IV 06/23/23 18:59 2.75 mls/min Q24H NATASHA Administration Protocol Piperacillin Sod/Tazobactam 100 mls @ 25 mls/hr 06/16/23 21:00 06/21/23 08:47 Sod 4.5 gm/ Dextrose IV 06/23/23 20:59 Infused Q8H NATASHA Infusion Protocol Hydrocortisone Sodium 1 mls @ 4 mls/min 06/17/23 04:00 06/21/23 09:25 Succinate 50 mg/ Syringe IV 07/17/23 03:59 4 mls/min Q6H NATASHA Administration Digoxin 125 mcg/ Syringe 10 mls @ 2 mls/min 06/18/23 16:00 06/20/23 16:37 IV 07/18/23 15:59 2 mls/min DAILY@1600 NATASHA Administration Lactated Ringer's 1,000 mls @ 15 mls/hr 06/21/23 12:30 06/21/23 12:27 Lr IV 07/21/23 12:29 15 mls/hr .Q24H NATASHA Administration Levothyroxine Sodium 125 mcg 06/17/23 06:30 06/21/23 06:01 Levothyroxine Sodium 125 Mcg Tablet PO 07/17/23 06:29 125 mcg DAILYBB NATASHA Administration Melatonin 3 mg 06/17/23 19:33 06/18/23 20:51 Melatonin 3 Mg Tab PO 07/17/23 19:32 3 mg HS PRN Administration Sleep Metoprolol Tartrate 25 mg 06/18/23 16:45 06/21/23 09:24 Metoprolol Tartrate 25 Mg Tab PO 07/18/23 16:44 25 mg TID NATASHA Administration Pantoprazole Sodium 40 mg 06/17/23 09:00 06/21/23 11:07 Pantoprazole 40 Mg Tab PO 07/17/23 08:59 40 mg DAILY NATASHA Administration Protocol Trazodone HCl 150 mg 06/16/23 21:00 06/20/23 21:51 Trazodone Hcl 50 Mg Tab PO 07/16/23 20:59 150 mg HS NATASHA Administration NPO Date Last Intake of Fluids: 06/20/23 Last Intake of Fluids Comment: NPO since midnight sip at 0934 with pills Date Last Intake of Solids: 06/20/23 Last Intake of Solids Comment: RN states NPO since midnight Past Medical History Medical History Chronic prescription benzodiazepine use (HFpEF) heart failure with preserved ejection fraction Bronchitis History of vaginitis History of edema [place] disease Exercise / Class Metabolic Activity II 4-5 Yardwork/Stairs/Walk up hill Past Family History Family History Sister Breast cancer Hearing loss Allergies Mother Thyroid cancer Brother Hearing loss Other No family history of adverse response to anesthesia No family history of bleeding disorder Denies family history of Colon cancer Ovarian cancer Myocardial infarction Past Surgical History Surgical History History of ovarian cystectomy S/P thyroid surgery H/O oophorectomy Past Anesthesia History No Hx of Anesthesia Complications and No Family Hx of Anesthesia Complications History of PONV No Hx of PONV and No Hx of Motion Sickness Social History Smoking Status: Never smoker Do You Dip or Chew Tobacco: No Hx Alcohol Use: No Hx Substance Use: No Physical Exam Vital Signs Last Vital Signs Temp 36.6 C 06/21/23 12:09 Pulse 78 06/21/23 12:09 Resp 22 06/21/23 12:09 BP 153/89 H 06/21/23 12:09 Pulse Ox 95 06/21/23 12:09 O2 Del Method Room Air 06/21/23 12:09 O2 Flow Rate 0 06/19/23 20:00 ENMT Mouth: no dentition abnormality Thyromental Distance: > or= 3.5 Finger Breadths Mallampati Class: II Neck normal visual inspection Respiratory normal respiratory effort Auscultation: lungs clear to auscultation bilaterally Cardiovascular Rate/Rhythm: regular rate; + abnormal rhythm (afib) Psychiatric Orientation: alert Testing Laboratory Results 06/21/23 06:31 06/21/23 06:31 PT 12.6 Seconds (9.0-12.0) H 06/17/23 06:19 INR 1.2 (0.9-1.1) H 06/17/23 06:19 APTT 30 Seconds (21-31) 06/17/23 06:19 Urine Color Yellow 06/16/23 17:08 Urine Appearance Clear (Clear) 06/16/23 17:08 Urine pH 6.0 (4.5-7.5) 06/16/23 17:08 Ur Specific [place] 1.020 (1.000-1.030) 06/16/23 17:08 Urine Protein Trace (Negative) H 06/16/23 17:08 Urine Glucose (UA) Negative (Negative) 06/16/23 17:08 Urine Ketones Negative (Negative) 06/16/23 17:08 Urine Nitrite Negative (Negative) 06/16/23 17:08 Ur Leukocyte Esterase Negative (Negative) 06/16/23 17:08 Urine RBC >30 /hpf (0-4) H 06/16/23 17:08 Urine WBC 5-10 /hpf (0-5) H 06/16/23 17:08 Ur Epithelial Cells 0-5 /lpf (0-5) 06/16/23 17:08 06/16/23 15:00 Aerobic Blood Culture - Preliminary Blood No growth in Aerobic bottle after 48 hours. Anaerobic Blood Culture - Preliminary No growth in Anaerobic bottle after 48 hours. 06/16/23 15:13 Aerobic Blood Culture - Preliminary Blood No growth in Aerobic bottle after 48 hours. Anaerobic Blood Culture - Preliminary No growth in Anaerobic bottle after 48 hours. 06/16/23 17:08 Urine Culture - Final Urine,Clean Catch No growth - less than 1,000 colonies/mL.
[2023-06-21] MEDS ORDERED: fentaNYL citrate PF 100 MCG/2 ML VIAL ONE (13:03)
[2023-06-21] MEDS: SODIUM CHLORIDE 0.9% 1,000 ML IV SCH (13:48)
--- NOTE | 2023-06-21 14:03 | Surgery Progress Note ---
Date of Service June 21, 2023 Assessment & Plan (1) Sacral decubitus ulcer: Plan: Proceed with excisional debridement of a sacral ulcer today Consent was obtained, risks discussed including bleeding, infection, non-healing wound Admission and Anticipated Discharge Date Admission Date: June 16, 2023 Subjective Pt seen and examined. No acute events overnight. Afebrile. Review of Systems Constitutional: no fever and no chills Ear, Nose, Mouth, Throat: no hearing loss Respiratory: no cough Cardiovascular: no chest pain Gastrointestinal: no abdominal pain, no nausea and no vomiting Genitourinary: no dysuria Musculoskeletal: no back pain Integumentary: as per Subjective / HPI Neurologic: + generalized weakness Physical Exam Constitutional: + disheveled; no acute distress Eyes: no conjunctival abnormality ENMT: Ears: no hearing impairment Mouth: no oropharynx abnormality Neck: trachea midline Respiratory: normal respiratory effort; no respiratory distress and no labored breathing Cardiovascular: Rate/Rhythm: + irregularly irregular Gastrointestinal (Abdomen): Soft and nontender. Musculoskeletal: 2+ lower extremity edema noted bilateral ly Skin: no rashes Large sacral ulcer with black eschar present Neurologic: moves all extremities Results & Data Vital Signs (Past 12 Hours) Vital Signs Temp Pulse Pulse Resp BP BP Pulse Ox 06/21/23 12:09 36.6 C 78 22 153/89 H 95 06/21/23 11:15 36.4 C L 82 16 154/94 H 94 06/21/23 09:18 36.4 C L 100 H 16 144/82 H 94 06/21/23 08:05 36.6 C 88 18 143/84 H 94 06/21/23 07:44 06/21/23 05:56 79 06/21/23 02:55 36.4 C L 82 16 135/77 95 O2 Del Method 06/21/23 12:09 Room Air 06/21/23 11:15 Room Air 06/21/23 09:18 Room Air 06/21/23 08:05 Room Air 06/21/23 07:44 Room Air 06/21/23 05:56 06/21/23 02:55 Room Air PG Care Time/CCT Total # of Minutes Spent Total Time Spent with Patient: Total time spent is greater than 50% in coordination of care (as documented) at patient's floor/unit and/or counseling patient: Coding Level of Care Code 31467 SUB INP/OBS CARE 06/16MIN Diagnoses Pressure injury of sacral region, unstageable L89.150 Pressure injury stage: unstageable (1) Sacral decubitus ulcer Pressure injury stage: unstageable Qualified Code(s): L89.150 - Pressure ulcer of sacral region, unstageable
[2023-06-21] MEDS ORDERED: DEXAMETHASONE SOD INJ 4 MG/ML VIAL ONE (14:36)
[2023-06-21] MEDS ORDERED: LIDOCAINE 2% 2 ML VIAL/AMP(20MG/ML) INFIL ONE (14:36)
[2023-06-21] MEDS ORDERED: ROCURONIUM BROMIDE 10 MG/ML 5 ML VIAL IV ONE (14:36)
[2023-06-21] MEDS ORDERED: ONDANSETRON INJ 2 MG/ML 2 ML VIAL ONE (14:36)
[2023-06-21] MEDS ORDERED: PROPOFOL IV EMULSION 10 MG/ML 20 ML VIAL IV ONE (14:36)
[2023-06-21] MEDS ORDERED: PHENYLEPHRINE 100MCG/ML 10ML SYR IV ONE (14:36)
[2023-06-21] MEDS ORDERED: SUGAMMADEX SODIUM 200 MG/2 ML VIAL IV ONE (14:47)
--- NOTE | 2023-06-21 15:00 | Post Operative Brief Note ---
PG Immediate Post Op with CF Date of Surgery June 21, 2023 Pre & Post Diagnosis Operation Date: 06/21/23 12:30 Pre-Op Diagnosis: Sacral decubitus ulcer Post-Op Diagnosis: Sacral decubitus ulcer I identified the patient and participated in the time-out.: Yes Procedure Operation Date: 06/21/23 12:30 Actual Procedures p Excisional Debridement of a Sacral Decubitus Ulcer 11cm x 10cm down to muscle/fascia(Not Applicable) - Bobby Taylor DO Surgeon Bobby Taylor DO [employer] Storage Clerk Jac HARTLEY Estimated Blood Loss 10 Findings See Below 11cm x 10cm ulcer with skin eschar and necrotic subcutaneous tissue and gluteal muscle Specimens Specimen Description: 1. Sacral decubitus ulcer Anesthesia Type General Complications none Disposition Disposition: Recovery Room
[2023-06-21] MEDS: BUPIVACAINE/EPINEPHRINE 0.5% MPF 1:200,000 30 ML VIAL ONE (15:05)
--- NOTE | 2023-06-21 15:05 | Operative Report ---
PG Post Operative Report Pre & Post Diagnosis Operation Date: 06/21/23 12:30 Pre-Op Diagnosis: Sacral decubitus ulcer Post-Op Diagnosis: Sacral decubitus ulcer I identified the patient and participated in the time-out.: Yes Procedure Operation Date: 06/21/23 12:30 Actual Procedures p Excisional Debridement of a Sacral Decubitus Ulcer 11cm x 10cm down to musc le/fascia(Not Applicable) - Bobby Taylor DO Surgeon Bobby Taylor DO Flavorings Compounder Jac HARTLEY Estimated Blood Loss 10 Findings See Below 11cm x 10cm ulcer with skin eschar and necrotic subcutaneous tissue and gluteal muscle Specimens Sacral ulcer for micro Drains None Anesthesia Type General Complications none Disposition Disposition: Recovery Room Indications 83 yo with a sacral decubitus ulcer in need of operative debridement Description of Procedure The patient was brought to the operating room and underwent general endotracheal anesthesia without issue. At this time the patient was placed in the prone jackknife position. The lower back were prepped and draped in the usual sterile fashion. Appropriate pre-operative antibiotics were administered. A timeout was called. The procedure was verified as Excisional debridement of sacral decubitus ulcer. Surgical, anesthesia and nursing teams agreed and the procedure was begun. The black eschar was excised using a #15 blade scalpel sharply. This included necrotic subcutaneous tissue and gluteal muscle in the right superior portion of the wound. This tissue was sent for culture. We debrided deep enough to encounter healthy bleeding tissue. We then sharply excised some skin edges that were devitalized using electrocautery. The wound was irrigated until clear. At this time hemostasis was achieved using electrocautery. Hemostasis was complete. At this time the incision was dressed with Aquacel Ag and covered with gauze and ABD pad. Post-debridement measuremen ts of the wound were 11cm x 10cm. The above represents and excisional debridement of sacral ulcer measuring 11cm x 10cm down to the level of the muscle/fascia. At this time the patient was awakened from anesthesia and extubated having remained stable throughout the entire case and transported to PACU in stable condition. The nurse practitioner was present and scrubbed for the entire case. She was essential in positioning, prepping and draping the patient, retraction and exposure, placement of the dressing. I attest to the content of the Intraoperative Record and any orders documented therein. Any exceptions are noted below.
[2023-06-21] MEDS ORDERED: ARTIFICIAL TEARS OP OINT 3.5 GM TUBE ONE (15:08)
--- NOTE | 2023-06-21 15:40 | Anesthesiology Progress Note ---
Date of Service June 21, 2023 Anesthesia Post Procedure Vital Signs Vital Signs: Temp Pulse Pulse Resp BP BP Pulse Ox 06/21/23 15:35 112 H 18 142/90 H 94 06/21/23 15:25 101 H 15 130/87 94 06/21/23 15:17 36.5 C 108 H 16 135/87 96 06/21/23 12:09 36.6 C 78 22 153/89 H 95 06/21/23 11:15 36.4 C L 82 16 154/94 H 94 06/21/23 09:18 36.4 C L 100 H 16 144/82 H 94 06/21/23 08:05 36.6 C 88 18 143/84 H 94 06/21/23 07:44 06/21/23 05:56 79 06/21/23 02:55 36.4 C L 82 16 135/77 95 06/20/23 22:34 36.3 C L 90 18 138/85 94 06/20/23 22:00 115 H 06/20/23 19:15 36.4 C L 94 H 18 125/71 92 06/20/23 18:00 06/20/23 17:33 118 H 06/20/23 16:37 98 H O2 Del Method O2 Del Method 06/21/23 15:35 Room Air 06/21/23 15:25 Room Air 06/21/23 15:17 Room Air 06/21/23 12:09 Room Air 06/21/23 11:15 Room Air 06/21/23 09:18 Room Air 06/21/23 08:05 Room Air 06/21/23 07:44 Room Air 06/21/23 05:56 06/21/23 02:55 Room Air 06/20/23 22:34 Room Air 06/20/23 22:00 06/20/23 19:15 Room Air 06/20/23 18:00 Nasal Cannula 06/20/23 17:33 06/20/23 16:37 Pain Intensity Sacrum: Pain Intensity: 7 Transfer of Care Handoff Completed per policy Notes Mental Status: alert / awake / arousable Patient Amnestic to Procedure: Yes Nausea / Vomiting: adequately controlled Pain: adequately controlled Airway Patency, RR, SpO2: stable & adequate BP & HR: stable & adequate Hydration State: stable & adequate Anesthetic Complications: no major complications apparent
--- NOTE | 2023-06-21 17:20 | Anesthesiology Progress Note ---
Date of Service June 21, 2023 Anesthesia Post Procedure Vital Signs Vital Signs: Temp Pulse Pulse Resp BP BP Pulse Ox 06/21/23 16:45 97.2 F L 101 H 16 134/75 93 06/21/23 16:31 105 H 06/21/23 16:25 97.7 F 104 H 16 132/73 92 06/21/23 16:14 75 06/21/23 16:05 98.4 F 105 H 20 136/73 92 06/21/23 15:55 92 H 12 127/75 94 06/21/23 15:45 97.9 F 101 H 12 129/72 94 06/21/23 15:35 112 H 18 142/90 H 94 06/21/23 15:25 101 H 15 130/87 94 06/21/23 15:17 97.7 F 108 H 16 135/87 96 06/21/23 12:09 97.9 F 78 22 153/89 H 95 06/21/23 11:15 97.5 F L 82 16 154/94 H 94 06/21/23 09:18 97.5 F L 100 H 16 144/82 H 94 06/21/23 08:05 97.9 F 88 18 143/84 H 94 06/21/23 07:44 06/21/23 05:56 79 06/21/23 02:55 97.5 F L 82 16 135/77 95 06/20/23 22:34 97.3 F L 90 18 138/85 94 06/20/23 22:00 115 H 06/20/23 19:15 97.5 F L 94 H 18 125/71 92 06/20/23 18:00 06/20/23 17:33 118 H O2 Del Method O2 Del Method 06/21/23 16:45 Room Air 06/21/23 16:31 06/21/23 16:25 Room Air 06/21/23 16:14 06/21/23 16:05 Room Air 06/21/23 15:55 Room Air 06/21/23 15:45 Room Air 06/21/23 15:35 Room Air 06/21/23 15:25 Room Air 06/21/23 15:17 Room Air 06/21/23 12:09 Room Air 06/21/23 11:15 Room Air 06/21/23 09:18 Room Air 06/21/23 08:05 Room Air 06/21/23 07:44 Room Air 06/21/23 05:56 06/21/23 02:55 Room Air 06/20/23 22:34 Room Air 06/20/23 22:00 06/20/23 19:15 Room Air 06/20/23 18:00 Nasal Cannula 06/20/23 17:33 Pain Intensity Sacrum: Pain Intensity: 7 Transfer of Care Handoff Completed per policy Notes Mental Status: alert / awake / arousable and participated in evaluation Patient Amnestic to Procedure: Yes Nausea / Vomiting: adequately controlled Pain: adequately controlled Airway Patency, RR, SpO2: stable & adequate BP & HR: stable & adequate Hydration State: stable & adequate Anesthetic Complications: no major complications apparent and Pt Satisfied with anesthetic care
--- NOTE | 2023-06-21 23:43 | Hospitalist Progress Note ---
Date of Service June 21, 2023 Assessment & Plan (1) Sepsis: Plan: Source - unstageable pressure sacral ulcer with surrounding cellulitis Empiric antibiotics with Zosyn and daptomycin Follow up blood and urine cultures currently negative to date s/p Debridement 06/21 reviewed blood work. (2) Sacral decubitus ulcer: Plan: Unstageable with surrounding cellulitis CT abdomen/pelvis without IV contrast ordered to rule out obstructive uropathy in addition to underlying abscess - no underlying abscess seen, no commnets of osteomyelitis Antibiotics as above Consult surgery eliquis as outpt delays time for debridement With significant missed Toenails podiatry consult is ordered to address these (3) Hematuria: Plan: Cover for UTI with Zosyn and daptomycin, Ct comments normal kidneys and bladder urine current culture currently negative on 06/17/2023 Hold Eliquis Diallo catheter appropriately placed for sepsis in the emergency room (4) ZUHAIR (acute kidney injury): Plan: seem to be intravascular dry with peripheral edema from 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 Limited TTE ordered to reassess this (7) (HFpEF) heart failure with preserved ejection fraction: Plan: Clinically dry as explained above on admission Hold Lasix Monitor for worsening shortness of breath/hypoxia (8) Hyponatremia: Plan: At baseline sodium 130. Hypovolemic. ?secondary to lasix Monitor following normal saline bolus with BMP in a.m. (9) Bilateral leg pain: Plan: Suspect due to leg swelling which is out of portion to overall volume status due to tricuspid regurgitation and immobility. This was a major complaint in April in addition with no venous thromboembolism seen on ultrasound Doppler at that time (10) Current chronic use of systemic steroids: Plan: Unclear if she is taking hydrocortisone or reasons for this but still listed as PRN on her medication list Not represcribed since February Random cortisol level appropriate (11) Hypothyroidism: Plan: TSH pending Continue levothyroxine 125 mcg p.o. daily Plan VTE prophylaxis - unable to tolerate SCDs due to bilateral leg pain, anticoagulation on hold due to hematuria and possible need for surgery Diet - low-sodium 1.) Pressure ulcer of sacral region, at least stage 3 2.) Metabolic encephalopathy Admission and Anticipated Discharge Date Admission Date: June 16, 2023 Subjective Patient reports no new symptoms. Review of Systems Review of Systems: All systems reviewed & are unremarkable except as noted in HPI & below Physical Exam Physical Exam: Awake oriented x 2 Cardiac exam is tachycardic and irregularly irregular Lungs are clear with decreased breath sounds at the bases Abdomen NABS and soft Results & Data Results & Data Vital Signs (Past 12 Hours) Vital Signs Temp Pulse Pulse Resp BP Pulse Ox O2 Del Method 06/21/23 22:31 37 C 84 16 94/56 L 93 Room Air 06/21/23 19:13 36.2 C L 103 H 18 126/75 95 Room Air 06/21/23 17:35 36.5 C 106 H 18 135/74 92 Room Air 06/21/23 17:10 36.0 C L 112 H 18 138/74 94 Room Air 06/21/23 16:45 36.2 C L 101 H 16 134/75 93 Room Air 06/21/23 16:31 105 H 06/21/23 16:25 36.5 C 104 H 16 132/73 92 Room Air 06/21/23 16:14 75 06/21/23 16:05 36.9 C 105 H 20 136/73 92 Room Air 06/21/23 15:55 92 H 12 127/75 94 Room Air 06/21/23 15:45 36.6 C 101 H 12 129/72 94 Room Air 06/21/23 15:35 112 H 18 142/90 H 94 Room Air 06/21/23 15:25 101 H 15 130/87 94 Room Air 06/21/23 15:17 36.5 C 108 H 16 135/87 96 Room Air 06/21/23 12:09 36.6 C 78 22 153/89 H 95 Room Air PG Care Time/CCT Total # of Minutes Spent Total Time Spent with Patient: Total time spent is greater than 50% in coordination of care (as documented) at patient's floor/unit and/or counseling patient: Coding Level of Care Code 12799 SUB INP/OBS CARE 2/35MIN Diagnoses Sepsis A41.9; R65.20 Sepsis type: sepsis due to unspecified organism Sepsis acute organ dysfunction status: with acute organ dysfunction Severe sepsis acute organ dysfunction type: unspecified Severe sepsis shock status: without septic shock Pressure injury of sacral region, unstageable L89.150 Pressure injury stage: unstageable Hematuria R31.9 ZUHAIR (acute kidney injury) N17.9 Atrial fibrillation with RVR I48.91 Pericardial effusion I31.39 (HFpEF) heart failure with preserved ejection fraction I50.30 Hyponatremia E87.1 Bilateral leg pain M79.604; M79.605 Current chronic use of systemic steroids Z79.52 Hypothyroidism E03.9 (1) Sepsis Sepsis type: sepsis due to unspecified organism Sepsis acute organ dysfunction status: with acute organ dysfunction Severe sepsis acute organ dysfunction type: unspecified Severe sepsis shock status: without septic shock Qualified Code(s): A41.9 - Sepsis, unspecified organism; R65.20 - Severe sepsis without septic shock (2) Sacral decubitus ulcer Pressure injury stage: unstageable Qualified Code(s): L89.150 - Pressure ulcer of sacral region, unstageable
[2023-06-22 07:23] LABS: Basophils # (auto) 0.02 K/uL (0.00-0.20); Basophils % (auto) 0.1 %; Hematocrit (blood only) 43.9 % (37.0-47.0); Hemoglobin 14.6 g/dl (12.0-16.0); Immature Granulocytes # (auto) 0.19 K/uL (0.01-0.20); Immature Granulocytes % (auto) 1.4 %; Lymphocytes # (auto) 0.47 K/uL (1.20-3.40); Lymphocytes % (auto) 3.5 %; Mean Corpuscular Hemoglobin 31.7 pg (25.0-34.0); Mean Corpuscular Hgb Conc 33.3 g/dL (32.0-36.0); Mean Corpuscular Volume 95.2 fL (80.0-100.0); Mean Platelet Volume 8.9 fL (9.4-12.4); Monocytes # (auto) 0.72 K/uL (0.11-0.59); Monocytes % (auto) 5.3 %; Neutrophils # (auto) 12.07 K/uL (1.40-6.50); Neutrophils % (auto) 89.7 %; Platelet Count 351 K/uL (130-400); RDW Coefficient of Variation 14.7 % (11.5-14.5); RDW Standard Deviation 50.4 fL (36.4-46.3); Red Blood Count 4.61 M/uL (4.20-5.40); White Blood Count 13.47 K/ul (4.8-10.8)
[2023-06-22 07:41] LABS: BUN Creatinine Ratio 55.3 (10-20); Est GFR (African American) 114.3 ml/min; Est GFR (Non-African American) 98.7 ml/min; Potassium 4.1 mmol/L (3.5-5.1)
[2023-06-22 07:49] LABS: INR 1.1 (0.9-1.1); Partial Thromboplastin Ratio 0.8; Partial Thromboplastin Time 23 Seconds (21-31); Prothrombin Time 11.9 Seconds (9.0-12.0)
--- NOTE | 2023-06-22 08:45 | Surgery Progress Note ---
Date of Service June 22, 2023 Assessment & Plan (1) Sacral decubitus ulcer: Plan: POD#1 I&D of sacral ulcer no issues noted overnight, pt offers no complaints surgical dressing intact will consult pediatric lpn for dressing recommendations, we are okay with wound vac if it is ideal she will continue on a course of abx for this okay for eliquis to resume tomorrow, 06/23/23 from our standpoint we will follow from periphery, please call with any questions/concerns recommend f/u in wound center upon dispo Admission and Anticipated Discharge Date Admission Date: June 16, 2023 Supervising Physician Co-Signing Physician Notes I personally saw and evaluated the patient with Serina Duarte PA-C and agree with the assessment and plan. She is doing well s/p debridement Continue local wound care at this point, ok for a Vac from surgical standpoint Subjective Patient offers no complaints regarding buttocks wound overnight. Physical Exam Physical Exam: awake, no distress. in bed eating breakfast Gastrointestinal (Abdomen): surgical dressings in place Results & Data Vital Signs (Past 12 Hours) Vital Signs Temp Pulse Resp BP Pulse Ox O2 Del Method 06/22/23 07:46 36.4 C L 109 H 16 159/83 H 06/22/23 03:00 36.5 C 87 18 152/78 H 92 Room Air 06/21/23 22:31 37 C 84 16 94/56 L 93 Room Air PG Care Time/CCT Total # of Minutes Spent Total Time Spent with Patient: Total time spent is greater than 50% in coordination of care (as documented) at patient's floor/unit and/or counseling patient: Coding Level of Care Code 36720 Post Operative Follow-Up Diagnoses Pressure injury of sacral region, unstageable L89.150 Pressure injury stage: unstageable (1) Sacral decubitus ulcer Pressure injury stage: unstageable Qualified Code(s): L89.150 - Pressure ulcer of sacral region, unstageable
--- NOTE | 2023-06-22 18:37 | Hospitalist Progress Note ---
Date of Service June 22, 2023 Assessment & Plan (1) Sepsis: Plan: Source - unstageable pressure sacral ulcer with surrounding cellulitis Empiric antibiotics with Zosyn and daptomycin Follow up blood and urine cultures currently negative to date s/p Debridement 06/21 reviewed blood work. will need placement. Neighbor helping with social situation as patient and her help each other out. Patient has been intermittently confused. (2) Sacral decubitus ulcer: Plan: Unstageable with surrounding cellulitis CT abdomen/pelvis without IV contrast ordered to rule out obstructive uropathy in addition to underlying abscess - no underlying abscess seen, no commnets of osteomyelitis Antibiotics as above Consult surgery eliquis as outpt delays time for debridement (3) Hematuria: Plan: Cover for UTI with Zosyn and daptomycin, Ct comments normal kidneys and bladder urine current culture currently negative on 06/17/2023 Hold Eliquis Diallo catheter appropriately placed for sepsis in the emergency room (4) ZUHAIR (acute kidney injury): Plan: seem to be intravascular dry with peripheral edema from 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 Limited TTE ordered to reassess this (7) (HFpEF) heart failure with preserved ejection fraction: Plan: Clinically dry as explained above on admission Hold Lasix Monitor for worsening shortness of breath/hypoxia (8) Hyponatremia: Plan: At baseline sodium 130. Hypovolemic. ?secondary to lasix Monitor following normal saline bolus with BMP in a.m. (9) Bilateral leg pain: Plan: Suspect due to leg swelling which is out of portion to overall volume status due to tricuspid regurgitation and immobility. This was a major complaint in April in addition with no venous thromboe mbolism seen on ultrasound Doppler at that time (10) Current chronic use of systemic steroids: Plan: Unclear if she is taking hydrocortisone or reasons for this but still listed as PRN on her medication list Not represcribed since February Random cortisol level appropriate (11) Hypothyroidism: Plan: TSH pending Continue levothyroxine 125 mcg p.o. daily Plan VTE prophylaxis - unable to tolerate SCDs due to bilateral leg pain, anticoagulation on hold due to hematuria and possible need for surgery Diet - low-sodium 1.) Pressure ulcer of sacral region, at least stage 3 2.) Metabolic encephalopathy Admission and Anticipated Discharge Date Admission Date: June 16, 2023 Subjective Patient is confused and is a poor historian. No new symptoms. Review of Systems Review of Systems: All systems reviewed & are unremarkable except as noted in HPI & below Physical Exam Physical Exam: Awake oriented x 2 Cardiac exam is tachycardic and irregularly irregular Lungs are clear with decreased breath sounds at the bases Abdomen NABS and soft Results & Data Results & Data Vital Signs (Past 12 Hours) Vital Signs Temp Pulse Pulse Resp BP Pulse Ox O2 Del Method 06/22/23 16:46 36.3 C L 95 H 17 152/79 H 94 Room Air 06/22/23 10:37 36.4 C L 97 H 17 130/69 93 Room Air 06/22/23 08:00 73 06/22/23 07:46 36.4 C L 109 H 16 159/83 H PG Care Time/CCT Total # of Minutes Spent Total Time Spent with Patient: Total time spent is greater than 50% in coordination of care (as documented) at patient's floor/unit and/or counseling patient: Coding Level of Care Code 81456 SUB INP/OBS CARE 2/35MIN Diagnoses Sepsis A41.9; R65.20 Sepsis acute organ dysfunction status: with acute organ dysfunction Sepsis type: sepsis due to unspecified organism Severe sepsis acute organ dysfunction type: unspecified Severe sepsis shock status: without septic shock Pressure injury of sacral region, unstageable L89.150 Pressure injury stage: unstageable Hematuria R31.9 ZUHAIR (acute kidney injury) N17.9 Atrial fibrillation with RVR I48.91 Pericardial effusion I31.39 (HFpEF) heart failure with preserved ejection fraction I50.30 Hyponatremia E87.1 Bilateral leg pain M79.604; M79.605 Current chronic use of systemic steroids Z79.52 Hypothyroidism E03.9 (1) Sepsis Sepsis acute organ dysfunction status: with acute organ dysfunction Sepsis type: sepsis due to unspecified organism Severe sepsis acute organ dysfunction type: unspecified Severe sepsis shock status: without septic shock Qualified Code(s): A41.9 - Sepsis, unspecified organism; R65.20 - Severe sepsis without septic shock (2) Sacral decubitus ulcer Pressure injury stage: unstageable Qualified Code(s): L89.150 - Pressure ulcer of sacral region, unstageable
--- NOTE | 2023-06-23 09:18 | Hospitalist Progress Note ---
Date of Service June 23, 2023 Assessment & Plan (1) Sepsis: Plan: Source - unstageable pressure sacral ulcer with surrounding cellulitis Empiric antibiotics with Zosyn and daptomycin Follow up blood and urine cultures currently negative to date s/p Debridement 06/21, wound vacc in place will need placement for ongoing medical care Neighbor helping with social situation as patient and her help each other out. Patient has been intermittently confused. (2) Sacral decubitus ulcer: Plan: Unstageable with surrounding cellulitis CT abdomen/pelvis without IV contrast ordered to rule out obstructive uropathy in addition to underlying abscess - no underlying abscess seen, no commnets of osteomyelitis Antibiotics as above (3) Hematuria: Plan: Cover for UTI with Zosyn and daptomycin,urine culture negative Ct comments normal kidneys and bladder urine current culture currently negative on 06/17/2023 Hold Eliquis Diallo catheter appropriately placed for sepsis in the emergency room (4) ZUHAIR (acute kidney injury): Plan: seem to be intravascular dry with peripheral edema from 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 Limited TTE comments as trivial status (7) (HFpEF) heart failure with preserved ejection fraction: Plan: Clinically dry as explained above on admission Hold Lasix Monitor for worsening shortness of breath/hypoxia (8) Hyponatremia: Plan: resolving (9) Bilateral leg pain: Plan: Suspect due to leg swelling which is out of portion to overall volume status due to tricuspid regurgitation and immobility. This was a major complaint in April in addition with no venous thromboembolism seen on ultrasound Doppler at that time (10) Current chronic use of systemic steroids: Plan: Unclear if she is taking hydrocortisone or reasons for this but still listed as PRN on her medication list Not represcribed since February Random cortisol level appropriate (11) Hypothyroidism: Plan: TSH and T4 normal 06/18/23 Continue levothyroxine 125 mcg p.o. daily Plan VTE prophylaxis - unable to tolerate SCDs due to bilateral leg pain, anticoagulation on hold due to hematuria Diet - low-sodium 1.) Pressure ulcer of sacral region, at least stage 3 2.) Metabolic encephalopathy Admission and Anticipated Discharge Date Admission Date: June 16, 2023 Subjective pt is pleasantly confused spoke to and updated, he is understanding of needing to go to rehab Physical Exam Physical Exam: pleasantly confused wound vacc in place very poor toenail hygene Results & Data Results & Data Vital Signs (Past 12 Hours) Vital Signs Temp Pulse Pulse Resp BP Pulse Ox O2 Del Method 06/23/23 07:41 97.5 F L 90 18 136/79 95 Room Air 06/23/23 07:00 76 06/23/23 03:36 97.5 F L 90 18 150/77 H 94 Room Air 06/23/23 00:00 71 06/22/23 22:38 97.5 F L 88 19 164/93 H 94 Room Air Laboratory Results called and gave update ordered cbc abd prp for 06/24/23 PG Care Time/CCT Total # of Minutes Spent Total Time Spent with Patient: Total time spent is greater than 50% in coordination of care (as documented) at patient's floor/unit and/or counseling patient: Coding Level of Care Code 69181 SUB INP/OBS CARE MIN Diagnoses Sepsis A41.9; R65.20 Sepsis acute organ dysfunction status: with acute organ dysfunction Sepsis type: sepsis due to unspecified organism Severe sepsis acute organ dysfunction type: unspecified Severe sepsis shock status: without septic shock Pressure injury of sacral region, unstageable L89.150 Pressure injury stage: unstageable Hematuria R31.9 ZUHAIR (acute kidney injury) N17.9 Atrial fibrillation with RVR I48.91 Pericardial effusion I31.39 (HFpEF) heart failure with preserved ejection fraction I50.30 Hyponatremia E87.1 Bilateral leg pain M79.604; M79.605 Current chronic use of systemic steroids Z79.52 Hypothyroidism E03.9 (1) Sepsis Sepsis acute organ dysfunction status: with acute organ dysfunction Sepsis type: sepsis due to unspecified organism Severe sepsis acute organ dysfunction type: unspecified Severe sepsis shock status: without septic shock Qualified Code(s): A41.9 - Sepsis, unspecified organism; R65.20 - Severe sepsis without septic shock (2) Sacral decubitus ulcer Pressure injury stage: unstageable Qualified Code(s): L89.150 - Pressure ulcer of sacral region, unstageable
[2023-06-24] MEDS: PIPER/TAZO 4.5g in D5W MINI-B 100 ML IV ONE (10:08)
[2023-06-24] MEDS: CEFEPIME 2,000 MG in SYRINGE 0 ML IV ONE (14:26)
[2023-06-24] MEDS: NYSTATIN SUSP 500,000 U/5 ML UDC PO SCH (14:26)
[2023-06-24] MEDS ORDERED: PIPER/TAZO 4.5g in D5W MINI-B 100 ML IV SCH (16:00)
--- NOTE | 2023-06-24 17:18 | Hospitalist Progress Note ---
Date of Service June 24, 2023 Assessment & Plan (1) Sepsis: Plan: Source - unstageable pressure sacral ulcer with surrounding cellulitis Empiric antibiotics with Cefepime pseudomonas, and Enterobacter Follow up blood and urine cultures currently negative to date s/p Debridement 06/21, wound vacc in place will need placement for ongoing medical care Neighbor helping with social situation as patient and her help each other out. Patient has been intermittently confused. (2) Sacral decubitus ulcer: Plan: Unstageable with surrounding cellulitis CT abdomen/pelvis without IV contrast ordered to rule out obstructive uropathy in addition to underlying abscess - no underlying abscess seen, no commnets of osteomyelitis Antibiotics as above (3) Hematuria: Plan: Cover for UTI with cefepime ,urine culture negative Ct comments normal kidneys and bladder urine current culture currently negative on 06/17/2023 Hold Eliquis Diallo catheter appropriately placed for sepsis in the emergency room (4) ZUHAIR (acute kidney injury): Plan: seem to be intravascular dry with peripheral edema from 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 Limited TTE comments as trivial status (7) (HFpEF) heart failure with preserved ejection fraction: Plan: Clinically dry as explained above on admission Hold Lasix Monitor for worsening shortness of breath/hypoxia (8) Hyponatremia: Plan: resolving (9) Bilateral leg pain: Plan: seemingly resolved no venous thromboembolism seen on ultrasound Doppler at that time (10) Current chronic use of systemic steroids: Plan: Unclear if she is taking hydrocortisone or reasons for this but still listed as PRN on her medication list Not represcribed since February Random cortisol level appropriate (11) Hypothyroidism: Plan: TSH and T4 normal 06/18/23 Continues on levothyroxine 125 mcg p.o. daily Plan VTE prophylaxis - unable to tolerate SCDs due to bilateral leg pain, ant icoagulation on hold due to hematuria Diet - low-sodium 1.) Pressure ulcer of sacral region, at least stage 3 2.) Metabolic encephalopathy Admission and Anticipated Discharge Date Admission Date: June 16, 2023 Subjective pt is pleasantly confused identified significant thrush spoke to and updated, he is understanding of needing to go to rehab issue with wound vacc Physical Exam Physical Exam: pt has significant thrush cardiac is regular lungs are decreased at bases abdomen soft and non tender Results & Data Results & Data Vital Signs (Past 12 Hours) Vital Signs Temp Pulse Pulse Pulse Resp BP BP 06/24/23 15:38 98.2 F 80 18 151/87 H 06/24/23 11:47 97.7 F 84 20 143/78 H 06/24/23 11:40 111 H Pulse Ox O2 Del Method 06/24/23 15:38 96 Room Air 06/24/23 11:47 93 Room Air 06/24/23 11:40 PG Care Time/CCT Total # of Minutes Spent Total Time Spent with Patient: Total time spent is greater than 50% in coordination of care (as documented) at patient's floor/unit and/or counseling patient: Coding Level of Care Code 14546 SUB INP/OBS CARE 2/35MIN Diagnoses Sepsis A41.9; R65.20 Sepsis type: sepsis due to unspecified organism Sepsis acute organ dysfunction status: with acute organ dysfunction Severe sepsis acute organ dysfunction type: unspecified Severe sepsis shock status: without septic shock Pressure injury of sacral region, unstageable L89.150 Pressure injury stage: unstageable Hematuria R31.9 ZUHAIR (acute kidney injury) N17.9 Atrial fibrillation with RVR I48.91 Pericardial effusion I31.39 (HFpEF) heart failure with preserved ejection fraction I50.30 Hyponatremia E87.1 Bilateral leg pain M79.604; M79.605 Current chronic use of systemic steroids Z79.52 Hypothyroidism E03.9 (1) Sepsis Sepsis type: sepsis due to unspecified organism Sepsis acute organ dysfunction status: with acute organ dysfunction Severe sepsis acute organ dysfunction type: unspecified Severe sepsis shock status: without septic shock Qualified Code(s): A41.9 - Sepsis, unspecified organism; R65.20 - Severe sepsis without septic shock (2) Sacral decubitus ulcer Pressure injury stage: unstageable Qualified Code(s): L89.150 - Pressure ulcer of sacral region, unstageable
[2023-06-24] MEDS: DIGOXIN 0.125 MG TAB PO SCH (17:26)
[2023-06-24] MEDS: Cefepime 2,000 MG Extended Infusion IV SCH (19:30)
[2023-06-25 07:46] LABS: Hematocrit (blood only) 46.4 % (37.0-47.0); Hemoglobin 15.3 g/dl (12.0-16.0); Mean Corpuscular Hemoglobin 31.5 pg (25.0-34.0); Mean Corpuscular Volume 95.5 fL (80.0-100.0); Mean Platelet Volume 9.1 fL (9.4-12.4); Platelet Count 312 K/uL (130-400); RDW Standard Deviation 51.4 fL (36.4-46.3); Red Blood Count 4.86 M/uL (4.20-5.40); White Blood Count 15.07 K/ul (4.8-10.8)
[2023-06-25 08:02] LABS: BUN Creatinine Ratio 61.8 (10-20); Calcium 7.7 mg/dl (8.6-10.3); Creatinine Clr Calc Pharmacy 91.6 ml/min; Est GFR (African American) 118.6 ml/min; Est GFR (Non-African American) 102.3 ml/min; Potassium 3.8 mmol/L (3.5-5.1)
[2023-06-25] MEDS: metroNIDAZOLE 500 MG/100 ML BAG IV SCH (14:18)
--- NOTE | 2023-06-25 17:06 | Hospitalist Progress Note ---
Date of Service June 25, 2023 Assessment & Plan (1) Sepsis: Plan: Source - unstageable pressure sacral ulcer with surrounding cellulitis Empiric antibiotics with Cefepime/Metronidazole pseudomonas, Enterobacter, bacteroides Follow up blood and urine cultures currently negative to date s/p Debridement 06/21, wound vacc in place will need placement for ongoing medical care Neighbor helping with social situation as patient and her help each other out. Patient has been intermittently confused. (2) Sacral decubitus ulcer: Plan: Unstageable with surrounding cellulitis CT abdomen/pelvis without IV contrast ordered to rule out obstructive uropathy in addition to underlying abscess - no underlying abscess seen, no commnets of osteomyelitis Antibiotics as above (3) Hematuria: Plan: Cover for UTI with cefepime ,urine culture negative Ct comments normal kidneys and bladder urine current culture currently negative on 06/17/2023 Hold Eliquis in case additional procedures Diallo catheter appropriately placed for sepsis in the emergency room (4) ZUHAIR (acute kidney injury): Plan: seem to be intravascular dry with peripheral edema from 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 Limited TTE comments as trivial status (7) (HFpEF) heart failure with preserved ejection fraction: Plan: Clinically dry as explained above on admission Hold Lasix Monitor for worsening shortness of breath/hypoxia (8) Hyponatremia: Plan: resolving (9) Bilateral leg pain: Plan: seemingly resolved no venous thromboembolism seen on ultrasound Doppler at that time (10) Current chronic use of systemic steroids: Plan: Unclear if she is taking hydrocortisone or reasons for this but still listed as PRN on her medication list Not represcribed since February Random cortisol level appropriate (11) Hypothyroidism: Plan: TSH and T4 normal 06/18/23 Continues on levothyroxine 125 mcg p.o. daily Plan VTE prophylaxis - unable to tolerate SCDs due to bilateral leg pain, anticoagulation on hold due to hematuria Diet - low-sodium 1.) Pressure ulcer of sacral region, at least stage 3 2.) Metabolic encephalopathy Admission and Anticipated Discharge Date Admission Date: June 16, 2023 Subjective pt is pleasantly confused identified improvement/lessening of thrush polymicrobial infection with cultures, remains on wound vacc Physical Exam Physical Exam: pt has improvement in thrush cardiac is regular lungs are decreased at bases abdomen soft and non tender Results & Data Results & Data Vital Signs (Past 12 Hours) Vital Signs Temp Pulse Pulse Resp BP BP Pulse Ox 06/25/23 16:18 78 06/25/23 15:43 80 06/25/23 15:42 98.2 F 85 14 149/89 H 94 06/25/23 11:35 98.2 F 79 14 131/74 95 06/25/23 07:43 78 06/25/23 07:31 97.3 F L 91 H 14 144/84 H 94 O2 Del Method 06/25/23 16:18 06/25/23 15:43 06/25/23 15:42 Room Air 06/25/23 11:35 Room Air 06/25/23 07:43 06/25/23 07:31 Room Air PG Care Time/CCT Total # of Minutes Spent Total Time Spent with Patient: Total time spent is greater than 50% in coordination of care (as documented) at patient's floor/unit and/or counseling patient: Coding Level of Care Code 54628 SUB INP/OBS CARE 2/35MIN Diagnoses Sepsis A41.9; R65.20 Sepsis type: sepsis due to unspecified organism Sepsis acute organ dysfunction status: with acute organ dysfunction Severe sepsis acute organ dysfunction type: unspecified Severe sepsis shock status: without septic shock Pressure injury of sacral region, unstageable L89.150 Pressure injury stage: unstageable Hematuria R31.9 ZUHAIR (acute kidney injury) N17.9 Atrial fibrillation with RVR I48.91 Pericardial effusion I31.39 (HFpEF) heart failure with preserved ejection fraction I50.30 Hyponatremia E87.1 Bilateral leg pain M79.604; M79.605 Current chronic use of systemic steroids Z79.52 Hypothyroidism E03.9 (1) Sepsis Sepsis type: sepsis due to unspecified organism Sepsis acute organ dysfunction status: with acute organ dysfunction Severe sepsis acute organ dysfunction type: unspecified Severe sepsis shock status: without septic shock Qualified Code(s): A41.9 - Sepsis, unspecified organism; R65.20 - Severe sepsis without septic shock (2) Sacral decubitus ulcer Pressure injury stage: unstageable Qualified Code(s): L89.150 - Pressure ulcer of sacral region, unstageable
--- NOTE | 2023-06-26 13:53 | Hospitalist Progress Note ---
Date of Service June 26, 2023 Assessment & Plan (1) Sepsis: Plan: Source - unstageable pressure sacral ulcer with surrounding cellulitis Empiric antibiotics with Cefepime/Metronidazole pseudomonas, Enterobacter, bacteroides Follow up blood and urine cultures currently negative to date, based on sensitivities may consider quinalone/flagyl po at discharge s/p Debridement 06/21, wound vacc in place will need placement for ongoing medical care Neighbor helping with social situation as patient and her help each other out. Patient has been intermittently confused. updating on phone as has no transportation to visit (2) Sacral decubitus ulcer: Plan: Unstageable withimproved surrounding cellulitis CT abdomen/pelvis without IV contrast ordered to rule out obstructive uropathy in addition to underlying abscess - no underlying abscess seen, no comments of osteomyelitis Antibiotics as above, consider 2 week course LD 07/08 (3) Hematuria: Plan: Cover for UTI with cefepime ,urine culture negative Ct comments normal kidneys and bladder urine current culture currently negative on 06/17/2023 Hold Eliquis in case additional procedures Diallo catheter appropriately placed for sepsis in the emergency room (4) ZUHAIR (acute kidney injury): Plan: seem to be intravascular dry with peripheral edema from 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 Limited TTE comments as trivial status (7) (HFpEF) heart failure with preserved ejection fraction: Plan: Clinically dry as explained above on admission Hold Lasix Monitor for worsening shortness of breath/hypoxia (8) Hyponatremia: Plan: resolving (9) Bilateral leg pain: Plan: seemingly resolved no venous thromboembolism seen on ultrasound Doppler at that time (10) Current chronic use of systemic steroids: Plan: Unclear if she is taking hydrocortisone or reasons for this but still listed as PRN on her medication list Not represcribed since February Random cortisol level appropriate (11) Hypothyroidism: Plan: TSH and T4 normal 06/18/23 Continues on levothyroxine 125 mcg p.o. daily Plan VTE prophylaxis - unable to tolerate SCDs due to bilateral leg pain, anticoagulation on hold due to hematuria, will start with lovenox and if no recurrence consider restart of eliquis Diet - low-sodium 1.) Pressure ulcer of sacral region, at least stage 3 2.) Metabolic encephalopathy Admission and Anticipated Discharge Date Admission Date: June 16, 2023 Subjective pt has no focal complaints, mild confusion at times, but oriented to conversation no pain from decubitus ulcer looking at placement for wound care and antibiotics Physical Exam Physical Exam: awake and alert cardiac exam is regular lungs are clear Results & Data Results & Data Vital Signs (Past 12 Hours) Vital Signs Temp Pulse Resp BP Pulse Ox O2 Del Method 06/26/23 11:52 Room Air 06/26/23 07:18 97.7 F 91 H 16 145/75 H 94 Room Air PG Care Time/CCT Total # of Minutes Spent Total Time Spent with Patient: Total time spent is greater than 50% in coordination of care (as documented) at patient's floor/unit and/or counseling patient: Coding Level of Care Code 29104 SUB INP/OBS CARE 2/35MIN Diagnoses Sepsis A41.9; R65.20 Sepsis type: sepsis due to unspecified organism Sepsis acute organ dysfunction status: with acute organ dysfunction Severe sepsis acute organ dysfunction type: unspecified Severe sepsis shock status: without septic shock Pressure injury of sacral region, unstageable L89.150 Pressure injury stage: unstageable Hematuria R31.9 ZUHAIR (acute kidney injury) N17.9 Atrial fibrillation with RVR I48.91 Pericardial effusion I31.39 (HFpEF) heart failure with preserved ejection fraction I50.30 Hyponatremia E87.1 Bilateral leg pain M79.604; M79.605 Current chronic use of systemic steroids Z79.52 Hypothyroidism E03.9 (1) Sepsis Sepsis type: sepsis due to unspecified organism Sepsis acute organ dysfunction status: with acute organ dysfunction Severe sepsis acute organ dysfunction type: unspecified Severe sepsis shock status: without septic shock Qualified Code(s): A41.9 - Sepsis, unspecified organism; R65.20 - Severe sepsis without septic shock (2) Sacral decubitus ulcer Pressure injury stage: unstageable Qualified Code(s): L89.150 - Pressure ulcer of sacral region, unstageable
[2023-06-26] MEDS: ENOXAPARIN INJ 40 MG/0.4 ML SYR SQ SCH (15:08)
--- NOTE | 2023-06-27 17:20 | Hospitalist Progress Note ---
Date of Service June 27, 2023 Assessment & Plan (1) Sepsis: Plan: Source - unstageable pressure sacral ulcer with surrounding cellulitis Empiric antibiotics with Cefepime/Metronidazole pseudomonas, Enterobacter, bacteroides Follow up blood and urine cultures currently negative to date, based on sensitivities may consider quinalone/flagyl po at discharge s/p Debridement 06/21, wound vacc in place will need placement for ongoing medical care Neighbor helping with social situation as patient and her help each other out. Patient has been intermittently confused. updating on phone as has no transportation to visit (2) Sacral decubitus ulcer: Plan: Unstageable withimproved surrounding cellulitis CT abdomen/pelvis without IV contrast ordered to rule out obstructive uropathy in addition to underlying abscess - no underlying abscess seen, no comments of osteomyelitis Antibiotics as above, consider 2 week course LD 07/08 (3) Hematuria: Plan: Cover for UTI with cefepime ,urine culture negative Ct comments normal kidneys and bladder urine current culture currently negative on 06/17/2023 Hold Eliquis in case additional procedures Diallo catheter appropriately placed for sepsis in the emergency room (4) ZUHAIR (acute kidney injury): Plan: seem to be intravascular dry with peripheral edema from 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 Limited TTE comments as trivial status (7) (HFpEF) heart failure with preserved ejection fraction: Plan: Clinically dry as explained above on admission Hold Lasix Monitor for worsening shortness of breath/hypoxia (8) Hyponatremia: Plan: resolving (9) Bilateral leg pain: Plan: seemingly resolved no venous thromboembolism seen on ultrasound Doppler at that time (10) Current chronic use of systemic steroids: Plan: Unclear if she is taking hydrocortisone or reasons for this but still listed as PRN on her medication list Not represcribed since February Random cortisol level appropriate (11) Hypothyroidism: Plan: TSH and T4 normal 06/18/23 Continues on levothyroxine 125 mcg p.o. daily Plan VTE prophylaxis - unable to tolerate SCDs due to bilateral leg pain, anticoagulation on hold due to hematuria, will start with lovenox and if no recurrence consider restart of eliquis Diet - low-sodium 1.) Pressure ulcer of sacral region, at least stage 3 2.) Metabolic encephalopathy Admission and Anticipated Discharge Date Admission Date: June 16, 2023 recommend apply for auth for snf placement Subjective pt has no focal complaints, mild confusion at times, but oriented to conversation no pain from decubitus ulcer looking at placement for wound care and antibiotics Physical Exam Physical Exam: awake and alert cardiac exam is regular lungs are clear Results & Data Results & Data Vital Signs (Past 12 Hours) Vital Signs Temp Pulse Pulse Pulse Resp BP BP 06/27/23 16:56 96 H 06/27/23 14:20 98.1 F 98 H 16 130/70 06/27/23 11:10 98.2 F 92 H 20 148/84 H 06/27/23 07:42 97.5 F L 92 H 20 151/82 H Pulse Ox O2 Del Method 06/27/23 16:56 06/27/23 14:20 94 Room Air 06/27/23 11:10 96 Room Air 06/27/23 07:42 95 Room Air PG Care Time/CCT Total # of Minutes Spent Total Time Spent with Patient: Total time spent is greater than 50% in coordination of care (as documented) at patient's floor/unit and/or counseling patient: Coding Level of Care Code 41542 SUB INP/OBS CARE 2/35MIN Diagnoses Sepsis A41.9; R65.20 Sepsis type: sepsis due to unspecified organism Sepsis acute organ dysfunction status: with acute organ dysfunction Severe sepsis acute organ dysfunction type: unspecified Severe sepsis shock status: without septic shock Pressure injury of sacral region, unstageable L89.150 Pressure injury stage: unstageable Hematuria R31.9 ZUHAIR (acute kidney injury) N17.9 Atrial fibrillation with RVR I48.91 Pericardial effusion I31.39 (HFpEF) heart failure with preserved ejection fraction I50.30 Hyponatremia E87.1 Bilateral leg pain M79.604; M79.605 Current chronic use of systemic steroids Z79.52 Hypothyroidism E03.9 (1) Sepsis Sepsis type: sepsis due to unspecified organism Sepsis acute organ dysfunction status: with acute organ dysfunction Severe sepsis acute organ dysfunction type: unspecified Severe sepsis shock status: without septic shock Qualified Code(s): A41.9 - Sepsis, unspecified organism; R65.20 - Severe sepsis without septic shock (2) Sacral decubitus ulcer Pressure injury stage: unstageable Qualified Code(s): L89.150 - Pressure ulcer of sacral region, unstageable
[2023-06-28 09:12] LABS: Hematocrit (blood only) 48.7 % (37.0-47.0); Mean Corpuscular Hemoglobin 31.7 pg (25.0-34.0); Mean Corpuscular Hgb Conc 32.9 g/dL (32.0-36.0); Mean Corpuscular Volume 96.4 fL (80.0-100.0); Mean Platelet Volume 9.4 fL (9.4-12.4); Platelet Count 225 K/uL (130-400); RDW Coefficient of Variation 15.6 % (11.5-14.5); RDW Standard Deviation 54.4 fL (36.4-46.3); Red Blood Count 5.05 M/uL (4.20-5.40); White Blood Count 15.17 K/ul (4.8-10.8)
[2023-06-28 09:23] LABS: BUN Creatinine Ratio 59.5 (10-20); Calcium 7.5 mg/dl (8.6-10.3); Creatinine Clr Calc Pharmacy 84.2 ml/min; Est GFR (African American) 115.3 ml/min; Est GFR (Non-African American) 99.5 ml/min; Magnesium 2.1 mg/dl (1.7-2.4); Potassium 3.5 mmol/L (3.5-5.1)
--- NOTE | 2023-06-28 17:48 | Hospitalist Progress Note ---
Date of Service June 28, 2023 Assessment & Plan (1) Sepsis: Plan: Source - unstageable pressure sacral ulcer with surrounding cellulitis-poor progression some necrosis seen recently Empiric antibiotics with Cefepime/Metronidazole pseudomonas, Enterobacter, bacteroides Follow up blood and urine cultures currently negative to date, based on sensitivities may consider quinalone/flagyl po at discharge s/p Debridement 06/21, wound vacc in place will need placement for ongoing medical care Neighbor helping with social situation as patient and her help each other out. Patient has been intermittently confused. updating on phone as has no transportation to visit (2) Sacral decubitus ulcer: Plan: Unstageable withimproved surrounding cellulitis CT abdomen/pelvis without IV contrast ordered to rule out obstructive uropathy in addition to underlying abscess - no underlying abscess seen, no comments of osteomyelitis Antibiotics as above, consider 2 week course LD 07/08 (3) Hematuria: Plan: Cover for UTI with cefepime ,urine culture negative Ct comments normal kidneys and bladder urine current culture currently negative on 06/17/2023 Hold Eliquis in case additional procedures Diallo catheter appropriately placed for sepsis in the emergency room (4) ZUHAIR (acute kidney injury): Plan: seem to be intravascular dry with peripheral edema from 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 Limited TTE comments as trivial status (7) (HFpEF) heart failure with preserved ejection fraction: Plan: Clinically dry as explained above on admission Hold Lasix Monitor for worsening shortness of breath/hypoxia (8) Hyponatremia: Plan: resolving (9) Bilateral leg pain: Plan: seemingly resolved no venous thromboembolism seen on ultrasound Doppler at that time (10) Current chronic use of systemic steroids: Plan: Unclear if she is taking hydrocortisone or reasons for this but still listed as PRN on her medication list Not represcribed since February Random cortisol level appropriate (11) Hypothyroidism: Plan: TSH and T4 normal 06/18/23 Continues on levothyroxine 125 mcg p.o. daily Plan VTE prophylaxis - unable to tolerate SCDs due to bilateral leg pain, anticoagulation on hold due to hematuria, will start with lovenox and if no recurrence consider restart of eliquis Diet - low-sodium 1.) Pressure ulcer of sacral region, at least stage 3 2.) Metabolic encephalopathy Admission and Anticipated Discharge Date Admission Date: June 16, 2023 Subjective pt has no focal complaints, confusion seems to have resolved no pain from decubitus ulcer looking at placement for wound care and antibiotics Physical Exam Physical Exam: awake and alert cardiac exam is regular lungs are clear Results & Data Results & Data Vital Signs (Past 12 Hours) Vital Signs Temp Pulse Pulse Pulse Resp BP Pulse Ox 06/28/23 15:33 86 06/28/23 14:41 98.2 F 86 16 126/73 94 06/28/23 07:42 97.9 F 94 H 16 133/79 96 O2 Del Method 06/28/23 15:33 06/28/23 14:41 Room Air 06/28/23 07:42 Room Air PG Care Time/CCT Total # of Minutes Spent Total Time Spent with Patient: Total time spent is greater than 50% in coordination of care (as documented) at patient's floor/unit and/or counseling patient: Coding Level of Care Code 31370 SUB INP/OBS CARE 2/35MIN Diagnoses Sepsis A41.9; R65.20 Sepsis type: sepsis due to unspecified organism Sepsis acute organ dysfunction status: with acute organ dysfunction Severe sepsis acute organ dysfunction type: unspecified Severe sepsis shock status: without septic shock Pressure injury of sacral region, unstageable L89.150 Pressure injury stage: unstageable Hematuria R31.9 ZUHAIR (acute kidney injury) N17.9 Atrial fibrillation with RVR I48.91 Pericardial effusion I31.39 (HFpEF) heart failure with preserved ejection fraction I50.30 Hyponatremia E87.1 Bilateral leg pain M79.604; M79.605 Current chronic use of systemic steroids Z79.52 Hypothyroidism E03.9 (1) Sepsis Sepsis type: sepsis due to unspecified organism Sepsis acute organ dysfunction status: with acute organ dysfunction Severe sepsis acute organ dysfunction type: unspecified Severe sepsis shock status: without septic shock Qualified Code(s): A41.9 - Sepsis, unspecified organism; R65.20 - Severe sepsis without septic shock (2) Sacral decubitus ulcer Pressure injury stage: unstageable Qualified Code(s): L89.150 - Pressure ulcer of sacral region, unstageable
[2023-06-28] MEDS: APIXABAN 2.5 MG TAB PO SCH (22:14)
[2023-06-29 16:20] VITALS: O2SAT 94
--- NOTE | 2023-06-29 16:29 | Hospitalist Progress Note ---
Date of Service June 29, 2023 Assessment & Plan (1) Sepsis: Plan: Source - unstageable pressure sacral ulcer with surrounding cellulitis-poor progression some necrosis seen recently 06/28 wound care photo Empiric antibiotics with Cefepime/Metronidazole pseudomonas, Enterobacter, bacteroides Follow up blood and urine cultures currently negative to date, based on sensitivities may consider quinalone/flagyl po at discharge s/p Debridement 06/21, wound vacc in place will need placement for ongoing medical care tentative [facility] care this week Neighbor helping with social situation as patient and her help each other out. updating on phone as has no transportation to visit (2) Sacral decubitus ulcer: Plan: Unstageable withimproved surrounding cellulitis CT abdomen/pelvis without IV contrast ordered to rule out obstructive uropathy in addition to underlying abscess - no underlying abscess seen, no comments of osteomyelitis Antibiotics as above, consider 2 week course LD 07/08 (3) Hematuria: Plan: Cover for UTI with cefepime ,urine culture negative Ct comments normal kidneys and bladder urine current culture currently negative on 06/17/2023 May resume Eliquis therapy at this time renal dose Dilalo catheter appropriately placed for sepsis in the emergency roomadditional help reduce maceration of tissue (4) ZUHAIR (acute kidney injury): Plan: seem to be intravascular dry with peripheral edema from 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 Limited TTE comments as trivial status (7) (HFpEF) heart failure with preserved ejection fraction: Plan: Clinically dry as explained above on admission Held Lasix seems to have remained euvolemic Monitor for worsening shortness of breath/hypoxia (8) Hyponatremia: Plan: resolving (9) Bilateral leg pain: Plan: seemingly resolved no venous thromboembolism seen on ultrasound Doppler at that time (10) Current chronic use of systemic steroids: Plan: Unclear if she is taking hydrocortisone or reasons for this but still listed as PRN on her medication list Not represcribed since February Random cortisol level appropriate (11) Hypothyroidism: Plan: TSH and T4 normal 06/18/23 Continues on levothyroxine 125 mcg p.o. daily Plan VTE prophylaxis -patient will be on Eliquis at this time 1.) Pressure ulcer of sacral region, at least stage 3 2.) Metabolic encephalopathy Admission and Anticipated Discharge Date Admission Date: June 16, 2023 Subjective pt has no focal complaints, confusion seems to have resolved no pain from decubitus ulcer looking at placement for wound care and antibiotics Physical Exam Physical Exam: awake and alert cardiac exam is regular lungs are clear Wound site was inspected there is a wound VAC in place. Surrounding erythema has markedly receded from initial presentation unfortunately foam sponge of wound VAC does obscure some of the necrotic tissue seen on photograph from 06/28 Results & Data Results & Data Vital Signs (Past 12 Hours) Vital Signs Temp Pulse Pulse Resp BP Pulse Ox O2 Del Method 06/29/23 16:19 98.1 F 85 16 111/61 94 Room Air 06/29/23 16:00 87 06/29/23 11:47 98.1 F 87 16 109/67 96 Room Air 06/29/23 07:33 97.5 F L 85 18 146/85 H 95 Room Air PG Care Time/CCT Total # of Minutes Spent Total Time Spent with Patient: Total time spent is greater than 50% in coordination of care (as documented) at patient's floor/unit and/or counseling patient: Coding Level of Care Code 07715 SUB INP/OBS CARE MIN Diagnoses Sepsis A41.9; R65.20 Sepsis type: sepsis due to unspecified organism Sepsis acute organ dysfunction status: with acute organ dysfunction Severe sepsis acute organ dysfunction type: unspecified Severe sepsis shock status: without septic shock Pressure injury of sacral region, unstageable L89.150 Pressure injury stage: unstageable Hematuria R31.9 ZUHAIR (acute kidney injury) N17.9 Atrial fibrillation with RVR I48.91 Pericardial effusion I31.39 (HFpEF) heart failure with preserved ejection fraction I50.30 Hyponatremia E87.1 Bilateral leg pain M79.604; M79.605 Current chronic use of systemic steroids Z79.52 Hypothyroidism E03.9 (1) Sepsis Sepsis type: sepsis due to unspecified organism Sepsis acute organ dysfunction status: with acute organ dysfunction Severe sepsis acute organ dysfunction type: unspecified Severe sepsis shock status: without septic shock Qualified Code(s): A41.9 - Sepsis, unspecified organism; R65.20 - Severe sepsis without septic shock (2) Sacral decubitus ulcer Pressure injury stage: unstageable Qualified Code(s): L89.150 - Pressure ulcer of sacral region, unstageable
[2023-06-29] MEDS: MIRTAZAPINE TAB 15 MG TAB PO SCH (20:49)
[2023-06-30 13:47] VITALS: BP 150/73; PULSE 94; RESP 16; TEMP 98.2
--- NOTE | 2023-06-30 14:56 | Discharge Summary ---
Date of Service June 30, 2023 Admission HPI Per Admitting Provider Esteban Grace is an 83 year old female who presents to the ER after being sent in by her home health care nurse being found in her own excrement. The patient notes bilateral leg pain but cannot give me any timeline and this was present when I admitted her back in April. She has a large unstageable sacral pressure ulcer on her back which she is surprised about as her main pain is in her legs. She does note back pain but cannot give me any timeline on this. On discussion with her . 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 He notes a 1 week history of progressive decline with her already limited mobility - she usually walks a few steps from her wheelchair where she is spends almost 24 hours a day to the toilet. She has been unable to get to the toilet for the last 2 days. They have had an home health care nurse, since her hospitalization in April although he missed a visit 2 weeks ago. He called the home health care nurse jeremi marshall as he was concerned about his 's limited mobility. Principal Diagnosis sepsis Discharge Exam Awake oriented x 2 Cardiac exam is regular Lungs are clear with decreased breath sounds at the bases Abdomen NABS and soft Discharge Data Allergies Allergy/AdvReac Type Severity Reaction Status Date / Time No Known Drug Allergies Allergy Unknown Verified 06/16/23 15:24 Consultations 06/16/23 16:32 ED Decision to Admit Stat 06/16/23 18:42 Consult General Surgery Routine Procedures Performed Operation Date: 06/21/23 12:30 Actual Procedures p Excisional Debridement of a Sacral Decubitus Ulcer 11cm x 10cm down to muscle/fascia(Not Applicable) - Bobby Taylor DO Ordered Studies 06/16/23 14:36 CT head/brain wo con Stat 06/16/23 17:01 CT Abdomen and Pelvis [CT abd pelvis wo con] Stat Hospital Course (1) Sepsis: Source - unstageable pressure sacral ulcer with surrounding cellulitis-poor progression some necrosis seen recently 06/28 wound care photo Empiric antibiotics with Cefepime/Metronidazole pseudomonas, Enterobacter, bacteroides Follow up blood and urine cultures currently negative to date, based on sensitivities may consider quinalone/flagyl po at discharge s/p Debridement 06/21, wound vacc in place will need placement for ongoing medical care tentative targeting [facility] care this week Neighbor helping with social situation as patient and her help each other out. updating on phone as has no transportation to visit Will discharge with king catheter, will remove once able. (2) Sacral decubitus ulcer: Unstageable withimproved surrounding cellulitis CT abdomen/pelvis without IV contrast ordered to rule out obstructive uropathy in addition to underlying abscess - no underlying abscess seen, no comments of osteomyelitis Antibiotics as above, complete an additiinal week of antibiotics for a 2 week course will need to followup with wound care (3) Hematuria: Cover for UTI with cefepime ,urine culture negative Ct comments normal kidneys and bladder urine current culture currently negative on 06/17/2023 May resume Eliquis therapy at this time renal dose King catheter appropriately placed for sepsis in the emergency roomadditional help reduce maceration of tissue (4) ZUHAIR (acute kidney injury): seem to be intravascular dry with peripheral edema from 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 Limited TTE comments as trivial status (7) (HFpEF) heart failure with preserved ejection fraction: Clinically dry as explained above on admission Held Lasix seems to have remained euvolemic (8) Hyponatremia: resolving (9) Bilateral leg pain: seemingly resolved no venous thromboembolism seen on ultrasound Doppler at that time (10) Current chronic use of systemic steroids: Unclear if she is taking hydrocortisone or reasons for this but still listed as PRN on her medication list Not represcribed since February (11) Hypothyroidism: TSH and T4 normal 06/18/23 Continues on levothyroxine 125 mcg p.o. daily Plan VTE prophylaxis -patient will be on Eliquis at this time 1.) Pressure ulcer of sacral region, at least stage 3 2.) Metabolic encephalopathy Total Time Total Time Spent Total Time Spent (In Minutes): 32 Discharge Plan Discharge Items Patient Disposition: Transfer [facility] Reason For Visit: SEPSIS, SACRAL PRESSURE ULCER/CELLULITIS Discharge Diagnosis: Sepsis Activity: Resume your previous activity Non-emergency contact: Primary Care Provider Call non-emergency contact if: you have any medication questions Follow-up/Referrals: Alejandro Keyes MD [Primary Care Provider] - Diet: Regular Diet Texture: Easy to Chew Addtl Attending Provider Instructions: Patient will need followup with wound care. Remove king cath when able. Pending Studies at Discharge: No Stand-Alone Forms: My [facility] Skilled Items Patient informed of condition?: Yes DNR: No Discharge Level of Care: Skilled Communicable Disease: No Discharge Prognosis: Stable Lines: None Urinary Catheter: Yes Medications and DC Order Prescriptions: New nystatin 100,000 unit/mL Suspension 5 ml PO QID 7 Days Qty: 140 0RF pantoprazole 40 mg Tablet,Delayed Release (Dr/Ec) 40 mg PO DAILY Qty: 30 0RF digoxin [Digitek] 125 mcg (0.125 mg) Tablet 0.125 mg PO DAILY@1600 Qty: 30 0RF mirtazapine 15 mg Tablet 15 mg PO HS Qty: 30 0RF metoprolol tartrate 25 mg Tablet 37.5 mg PO BID Qty: 75 0RF Eliquis 2.5 mg Tablet 2.5 mg PO BID Qty: 60 0RF ciprofloxacin HCl 750 mg tablet 750 mg PO BID 7 Days Qty: 14 0RF metronidazole 500 mg tablet 500 mg PO Q8H 7 Days Qty: 21 0RF Continued trazodone 100 mg tablet 150 mg PO DAILY Qty: 135 3RF hydrocortisone 10 mg tablet 10 mg PO Q6H PRN (Reason: asthma) Qty: 360 3RF levothyroxine [Synthroid] 125 mcg tablet 125 mcg PO DAILYBB Qty: 90 1RF multivitamin tablet 1 tab PO DAILY Ocuvite Eye Health 50 mg-15 unit- 4.5 mg-2.5 mg tablet,chewable 2 tab PO DAILY polyethylene glycol 3350 [Miralax] 17 gram/dose powder 8.5 gm PO DAILY PRN (Reason: Constipation) Discontinued simvastatin 5 mg tablet 5 mg PO DAILY Qty: 90 3RF omeprazole 20 mg capsule,delayed release(DR/EC) 20 mg PO DAILY Qty: 90 3RF Eliquis 5 mg tablet 5 mg PO BID Qty: 180 1RF metoprolol tartrate 50 mg tablet 50 mg PO BID Qty: 180 1RF Discharge Orders: Discharge Order (Routine); Ordered 06/30/23 Ordered By: Leonidas Modi Admission Data Admit Date/Time: 06/16/23 17:05 Attending Provider: Leonidas Modi Admit Provider: Rahul Cuenca Primary Care Provider: Alejandro Keyes Other Providers: [facility]; [place]; Rahul Cuenca; Bobby Taylor; [facility] [place] Other Interventions: Discharge Summary Assessment (RN) Last Done: 06/30/23 15:07 Coding Level of Care Code 23164 INP/OBS DISCH >30 MIN Diagnoses Sepsis A41.9; R65.20 Sepsis acute organ dysfunction status: with acute organ dysfunction Sepsis type: sepsis due to unspecified organism Severe sepsis acute organ dysfunction type: unspecified Severe sepsis shock status: without septic shock Pressure injury of sacral region, unstageable L89.150 Pressure injury stage: unstageable Hematuria R31.9 ZUHAIR (acute kidney injury) N17.9 Atrial fibrillation with RVR I48.91 Pericardial effusion I31.39 (HFpEF) heart failure with preserved ejection fraction I50.30 Hyponatremia E87.1 Bilateral leg pain M79.604; M79.605 Current chronic use of systemic steroids Z79.52 Hypothyroidism E03.9
== END 2023-06-30 15:11 | DRG 853 ==
LOC: ED 12:51 → 2S 17:05 → SUATTDRO 17:05 → 2S 18:33 → 3N 06-25 21:14